=== PATIENT | male | born 1950 | race Caucasian/White ===

== ENCOUNTER 2020-09-01 06:15 | Outpatient (REF) | payer MEDICARE, SELFPAY ==
[2020-09-01 07:18] LABS: MANUAL DIFF FLAG NO
[2020-09-01 07:22] LABS: Basophils Percent Auto 0.8 % (0-2); Eosinophils Absolute Auto 0.1 X10*3/uL (0.0-0.4); Eosinophils Percent Auto 2.1 % (0-4); Hematocrit 47.2 % (42-52); Hemoglobin 15.4 g/dl (14.0-18.0); Imm Gran Abs Auto 0.02 X10*3/uL (0.00-0.03); Imm Gran Pct Auto 0.4 % (0.0-0.4); Lymphocytes Absolute Auto 1.9 X10*3/uL (1.2-4.9); Lymphocytes Percent Auto 37.4 % (20-40); Mean Corpuscular HGB Conc 32.6 g/dl (31.0-36.0); Mean Corpuscular Hemoglobin 31.8 pg (27.0-33.0); Mean Corpuscular Volume 97.5 fL (80-98); Mean Platelet Volume 11.3 fL (9.4-12.4); Monocytes Absolute Auto 0.6 X10*3/uL (0.1-1.2); Monocytes Percent Auto 11.9 % (2-11); Neutrophils Absolute Auto 2.4 X10*3/uL (2.0-8.3); Neutrophils Percent Auto 47.4 % (45-73); Platelet Count 155 X10*3/uL (160-400); Red Blood Count 4.84 X10*6/uL (4.60-5.80); Red Cell Distribution Width 12.6 % (11.0-16.0); White Blood Count 5.1 X10*3/uL (4.8-10.8)
[2020-09-01 07:58] LABS: Estimated Average Glucose 120 mg/dL; Hemoglobin A1c % 5.8 %
[2020-09-01 08:19] LABS: Alanine Aminotransferase 44 U/L (0-40); Albumin Level 4.3 g/dL (3.5-5.0); Alkaline Phosphatase 72 U/L (39-117); Anion Gap 12 (12-20); Aspartate Amino Transferase 36 U/L (5-37); Bilirubin Total 0.8 mg/dL (0.0-1.0); Blood Urea Nitrogen 19 mg/dL (9-16); Calcium 9.3 mg/dL (8.4-10.2); Carbon Dioxide 29 mmol/L (22-29); Chloride 106 mmol/L (96-108); Cholesterol 154 mg/dL; Estimated Glomerular Filt Rate > 60; Glucose Fasting 96 mg/dL (60-99); HDL Cholesterol 56 mg/dL; LDL Cholesterol Calculated 67 mg/dl; Potassium 4.4 mmol/l (3.3-5.1); Sodium 143 mmol/L (135-145); Total Protein 6.9 g/dL (6.5-8.0); Triglycerides 156 mg/dL
[2020-09-01 09:42] LABS: Folate 9.5 ng/mL (> or = 4.0); Vitamin B12 317 pg/mL (200-900)
== END 2020-09-01 06:16 | disposition home or self-care (01) ==
LOC: HO.LAB 06:15
PROVIDERS: PCP Internal Medicine; Visit Provider Internal Medicine
DX: E78.00 Pure hypercholesterolemia, unspecified (principal); N40.0 Benign prostatic hyperplasia without lower urinary tract symptoms; R73.01 Impaired fasting glucose; I25.10 Atherosclerotic heart disease of native coronary artery without angina pectoris; I10 Essential (primary) hypertension; I73.9 Peripheral vascular disease, unspecified; E66.9 Obesity, unspecified
CPT/HCPCS: 36415; 80053; 80061; 82607; 82746; 83036; 84436; 84443; 85025

== ENCOUNTER 2021-02-23 06:02 | Outpatient (REF) | payer MEDICARE, SELFPAY ==
[2021-02-23 08:08] LABS: MANUAL DIFF FLAG NO
[2021-02-23 08:25] LABS: Basophils Percent Auto 0.6 % (0-2); Eosinophils Absolute Auto 0.1 X10*3/uL (0.0-0.4); Hematocrit 44.3 % (42-52); Hemoglobin 14.7 g/dl (14.0-18.0); Imm Gran Abs Auto 0.01 X10*3/uL (0.00-0.03); Imm Gran Pct Auto 0.2 % (0.0-0.4); Lymphocytes Absolute Auto 1.9 X10*3/uL (1.2-4.9); Lymphocytes Percent Auto 41.1 % (20-40); Mean Corpuscular HGB Conc 33.2 g/dl (31.0-36.0); Mean Corpuscular Hemoglobin 32.8 pg (27.0-33.0); Mean Corpuscular Volume 98.9 fL (80-98); Mean Platelet Volume 11.1 fL (9.4-12.4); Monocytes Absolute Auto 0.5 X10*3/uL (0.1-1.2); Monocytes Percent Auto 10.9 % (2-11); Neutrophils Absolute Auto 2.1 X10*3/uL (2.0-8.3); Neutrophils Percent Auto 44.2 % (45-73); Platelet Count 166 X10*3/uL (160-400); Red Blood Count 4.48 X10*6/uL (4.60-5.80); Red Cell Distribution Width 13.4 % (11.0-16.0); White Blood Count 4.7 X10*3/uL (4.8-10.8)
[2021-02-23 08:33] LABS: Alanine Aminotransferase 28 U/L (0-40); Albumin Level 4.3 g/dL (3.5-5.0); Alkaline Phosphatase 71 U/L (39-117); Anion Gap 11 (12-20); Aspartate Amino Transferase 27 U/L (5-37); Bilirubin Total 0.8 mg/dL (0.0-1.0); Blood Urea Nitrogen 18 mg/dL (9-16); Calcium 9.5 mg/dL (8.4-10.2); Carbon Dioxide 28 mmol/L (22-29); Chloride 108 mmol/L (96-108); Cholesterol 155 mg/dL; Estimated Glomerular Filt Rate > 60; Glucose Random 103 mg/dL (60-115); HDL Cholesterol 55 mg/dL; LDL Cholesterol Calculated 73 mg/dl; Potassium 4.3 mmol/L (3.3-5.1); Sodium 143 mmol/L (135-145); Total Protein 6.9 g/dL (6.5-8.0); Triglycerides 138 mg/dL
[2021-02-23 08:36] LABS: B Type Natriuretic Peptide 136 pg/mL (<100)
[2021-02-23 08:57] LABS: Free T4 (Free Thyroxine) 0.83 ng/dL (0.71-1.85); Thyroid Stimulating Hormone 2.28 uIU/mL (0.32-4.0)
[2021-02-23 09:18] LABS: Folate 11.5 ng/mL (> or = 4.0); Vitamin B12 471 pg/mL (200-900)
[2021-02-23 10:08] LABS: Estimated Average Glucose 117 mg/dL; Hemoglobin A1c % 5.7 %
== END 2021-02-23 06:03 | disposition home or self-care (01) ==
LOC: HO.LAB 06:02
PROVIDERS: PCP Internal Medicine; Visit Provider Internal Medicine
DX: I25.10 Atherosclerotic heart disease of native coronary artery without angina pectoris (principal); E78.00 Pure hypercholesterolemia, unspecified; I10 Essential (primary) hypertension; R73.01 Impaired fasting glucose
CPT/HCPCS: 36415; 80053; 80061; 82607; 82746; 83036; 83880; 84439; 84443; 85025

== ENCOUNTER 2021-09-29 08:10 | Day surgery (SDC) | payer MEDICARE, SELFPAY ==
[2021-09-23 11:30] VITALS: BMI 30.9
--- NOTE | 2021-09-28 13:06 | P.CONAN_ITS ---
Documented by User: Eleonora Erickson NP 09/28/21 13:12 HPI - Anesthesia Eval Consult details Narrative: 71yo M for Colonoscopy Stable at 08/2021 cardiac visit Plavix/ASA for PVD and CAD PMFSH Active Problems Active Problems: All Active Problems (Updated 09/02/21 @ 15:07 by Kacy Fonseca MD) Tubular adenoma of colon (Acute) Hypersomnia (Acute) COVID-19 virus infection (Acute) Acute medial meniscus tear of left knee (Acute) Carotid stenosis (Acute) Hypercholesterolemia (Acute) BPH (benign prostatic hyperplasia) (Acute) Peripheral arterial disease (Acute) Impaired fasting glucose (Acute) Obesity (BMI 30-39.9) (Acute) Hypertension (Acute) Coronary artery disease (Acute) Past Medical History Medical History Blind right eye BPH (benign prostatic hyperplasia) Carpal tunnel syndrome Coronary artery disease Dilatation of aorta Erectile dysfunction History of renal calculi Hypercholesterolemia Hypertension Impaired fasting glucose Obesity (BMI 30-39.9) Osteoarthritis of left knee Peripheral arterial disease Peripheral vascular disease Pulmonary nodule Vitamin D deficiency Vocal cord polyp Family History Family History Father CVD (cardiovascular disease) Stroke Brain aneurysm Mother CVD (cardiovascular disease) Hypertension Sister Leukemia Brother Lung cancer Surgical History Surgical History Coronary artery disease involving coronary bypass graft History of appendectomy History of arthroscopy of left knee History of arthroscopy of right knee History of carpal tunnel release History of endarterectomy History of placement of stent in LAD coronary artery History of surgery History of vocal cord polypectomy Hx of total hip arthroplasty S/P right knee arthroscopy Status post endovenous radiofrequency ablation of saphenous vein Social History Social History Housing: House Patient Tobacco Use Status: Former Tobacco user Quit Date: Tobacco use type: Cigarette e-Cigarette/Vaping Use: Never Used Second Hand Smoke Exposure: No Use of substances other than those prescribed or required for medical reasons: No Are you DNR?: No Advance Directives: No Advance Directives Information Provided: Yes Advance Directives on File: No service: No 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) Meds Allergies Allergy/AdvReac Type Severity Reaction Status Date / Time No Known Allergies Allergy Verified 09/23/21 11:30 [No Known Allergies*] Home Medications Medication Instructions Recorded Confirmed Last Taken Type lactobacillus combination no.8 3 3,000 mmu cells PO DAILY 09/04/20 09/23/21 Unknown History billion cell capsule (Adult Probiotic) cholecalciferol (vitamin D3) 25 50 mcg PO DAILY 03/02/21 09/23/21 Unknown History mcg (1,000 unit) capsule Exam Exam Date and Time: September 28, 2021 1306 Height,Weight and Vital Signs: Height 6 ft 1 in Weight 106.594 kg Pertinent Lab Results Pertinent Lab Results: Laboratory Tests 02/23/21 02/23/21 06:10 06:10 WBC 4.7 L Hgb 14.7 Hct 44.3 Plt Count 166 Sodium 143 Potassium 4.3 Chloride 108 Carbon Dioxide 28 BUN 18 H Creatinine 0.87 Narrative Narrative: ECHO 2015 LV systolic function is low normal EF 50-55%, Abnormal septal motion Grade 1 DD with impaired relax Aortic sclerosis without stenosis No pulmo htn No change from prior Assessment and Plan Assessment Anesthesia Assessment: Chart Reviewed Documented by User: Deepti Vela MD 09/29/21 09:08 [facility] Past Medical History Medical History Blind right eye BPH (benign prostatic hyperplasia) Carpal tunnel syndrome Coronary artery disease Dilatation of aorta Erectile dysfunction History of renal calculi Hypercholesterolemia Hypertension Impaired fasting glucose Obesity (BMI 30-39.9) Osteoarthritis of left knee Peripheral arterial disease Peripheral vascular disease Pulmonary nodule Vitamin D deficiency Vocal cord polyp Family History Family History Father CVD (cardiovascular disease) Stroke Brain aneurysm Mother CVD (cardiovascular disease) Hypertension Sister Leukemia Brother Lung cancer Surgical History Surgical History Coronary artery disease involving coronary bypass graft History of appendectomy History of arthroscopy of left knee History of arthroscopy of right knee History of carpal tunnel release History of endarterectomy History of placement of stent in LAD coronary artery History of surgery History of vocal cord polypectomy Hx of total hip arthroplasty S/P right knee arthroscopy Status post endovenous radiofrequency ablation of saphenous vein History of Problems with Anesthesia: No Social History Social History Housing: House Patient Tobacco Use Status: Former Tobacco user Quit Date: Tobacco use type: Cigarette e-Cigarette/Vaping Use: Never Used Second Hand Smoke Exposure: No Use of substances other than those prescribed or required for medical reasons: No Are you DNR?: No Advance Directives: No Advance Directives Information Provided: Yes Advance Directives on File: No service: No 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) Narrative Narrative: q Meds Allergies Allergy/AdvReac Type Severity Reaction Status Date / Time No Known Allergies Allergy Verified 09/23/21 11:30 [No Known Allergies*] Home Medications Medication Instructions Recorded Confirmed Last Taken Type lactobacillus combination no.8 3 3,000 mmu cells PO DAILY 09/04/20 09/23/21 Unknown History billion cell capsule (Adult Probiotic) cholecalciferol (vitamin D3) 25 50 mcg PO DAILY 03/02/21 09/23/21 Unknown History mcg (1,000 unit) capsule Exam Airway Mallampati Class: II TM Dist: >3cm Neck ROM: Full Denture: Upper Partial: Lower Loose/Missing/Broken Teeth: Yes, Upper and Lower Heart: RRR Lungs: CTA Assessment and Plan Assessment Anesthesia Assessment: Anesthesia Plan Discussed Final Anesthetic Review History of Problems with Anesthesia: No NPO: Yes ASA Class: III Final Preanesthetic Review: Meds/Allgs Chart Reviewed, Consent Obtained/Reviewed and Anes Risks/Benef Reviewed Patient Risk: Intermediate Procedure Risk: Low Anesthetic Plan Anesthetic Plan: MAC: Disposition: Standard PACU
[2021-09-29 08:28] VITALS: BP 144/84; PULSE 78; RESP 18; TEMP 36.8; O2SAT 98
[2021-09-29] MEDS: Lactated Ringers 1,000 ML 50 ML IVCONT (08:49)
--- NOTE | 2021-09-29 09:27 | MHC.SHP ---
Pre-Procedural Eval Section A Date of Service: 09/29/21 The patient is an INPATIENT: No Changes since office visit: No Cold of Flu in the past 2 weeks, No New Medical Problems, No Changes in Medication and No Patient answered all questions The History & Physical has been completed within 30 days and I have reviewed it.: Yes Section B Chief Complaint: Screening Allergies: Allergies Allergy/AdvReac Type Severity Reaction Status Date / Time No Known Allergies Allergy Verified 09/23/21 11:30 [No Known Allergies*] Plan I have reviewed the history and physical and performed a pertinent physical examination on my patient. No changes have occurred unless specified.
[2021-09-29 10:00] VITALS: BP 102/63; PULSE 68; RESP 16; TEMP 36.1; O2SAT 98
--- NOTE | 2021-09-29 10:02 | PM.OP ---
Brief Operative Note Date of Service: 09/29/21 Pre-op diagnosis: SCREENING Post-op diagnosis: same Procedure: COLONOCOPY Surgeon: Timmy Lara Anesthesia: MAC Was an Student Support Advisor used for this Procedure?: No Estimated blood loss (mL): 2 Pathology: other (POLYPS X 3) Condition: stable Disposition: PACU
[2021-09-29 10:15] VITALS: BP 143/84; PULSE 67; RESP 18; O2SAT 98
[2021-09-29 10:30] VITALS: BP 149/88; PULSE 56; RESP 19; TEMP 36.8; O2SAT 99
--- NOTE | 2021-09-29 11:17 | OP_ITS ---
SURGEON: Timmy Lara MD INDICATIONS: Colon cancer screening and prior history of adenomatous colon polyps. PREOPERATIVE DIAGNOSIS: POSTOPERATIVE DIAGNOSIS: PROCEDURE PERFORMED: Colonoscopy to the terminal ileum with snare polypectomy and biopsy. ESTIMATED BLOOD LOSS: COMPLICATIONS: ANESTHESIA: ASSISTANTS: SPECIMENS: MEDICATIONS: Monitored anesthesia care. DESCRIPTION OF PROCEDURE: History and physical performed. The risks and benefits of the procedure were explained to the patient. Informed consent was obtained. The patient was placed in left lateral decubitus position. A digital rectal exam was performed and was found to be normal. The Olympus pediatric video colonoscope was introduced into the rectum and advanced to the cecum without difficulty. The cecum was identified by transillumination, palpation, and identification of ileocecal valve. Examination was performed and the scope was removed. He tolerated the procedure well and was taken to recovery area in stable condition. FINDINGS: The terminal ileum was examined and appeared normal. The visualized colonic mucosa was within normal limits without evidence of masses or ulcers. Three polyps were identified and removed. The first was located at 80 cm and was snared. The second was located at 75 cm and was removed with biopsy forceps. The third was located at 60 cm and was removed with a snare. All polyps were less than 10 mm. There was diverticulosis of the sigmoid with scattered diverticula throughout the remainder of the colon. The quality of the prep was good. Retroflexed examination showed some small to moderate internal hemorrhoids. IMPRESSION: Colon polyps. RECOMMENDATION: Follow up the biopsy results. MD MARCY Lambert/SASKIA / [id number]
== END 2021-09-29 10:58 | disposition home or self-care (01) ==
PROVIDERS: PCP Internal Medicine; Visit Provider Internal Medicine Gastroenterology
PROC: 0DJD8ZZ Inspection of Lower Intestinal Tract, Via Natural or Artificial Opening Endoscopic (ICD-10-PCS; CPT 45378; principal; 2021-09-29 09:30)
DX: Z12.11 Encounter for screening for malignant neoplasm of colon (principal); Z86.010 Personal history of colon polyps; D12.4 Benign neoplasm of descending colon; K57.30 Diverticulosis of large intestine without perforation or abscess without bleeding; K64.8 Other hemorrhoids; H54.40 Blindness, one eye, unspecified eye; I10 Essential (primary) hypertension; E78.00 Pure hypercholesterolemia, unspecified; I25.10 Atherosclerotic heart disease of native coronary artery without angina pectoris; Z98.61 Coronary angioplasty status; Z95.1 Presence of aortocoronary bypass graft; I73.9 Peripheral vascular disease, unspecified; Z95.820 Peripheral vascular angioplasty status with implants and grafts; Z79.02 Long term (current) use of antithrombotics/antiplatelets; Z79.899 Other long term (current) drug therapy
CPT/HCPCS: 45385; 45380; 88305

== ENCOUNTER 2021-10-28 05:49 | Outpatient (REF) | payer MEDICARE, SELFPAY ==
[2021-10-28 06:08] LABS: MANUAL DIFF FLAG NO
[2021-10-28 07:56] LABS: Basophils Absolute Auto 0.1 X10*3/uL (0.0-0.2); Basophils Percent Auto 0.8 % (0-2); Eosinophils Absolute Auto 0.1 X10*3/uL (0.0-0.4); Eosinophils Percent Auto 2.1 % (0-4); Hematocrit 46.6 % (42.0-52.0); Hemoglobin 15.3 g/dl (14.0-18.0); Imm Gran Abs Auto 0.03 X10*3/uL (0.00-0.03); Imm Gran Pct Auto 0.5 % (0.0-0.4); Lymphocytes Absolute Auto 2.7 X10*3/uL (1.2-4.9); Lymphocytes Percent Auto 43.9 % (20-40); Mean Corpuscular HGB Conc 32.8 g/dl (31.0-36.0); Mean Corpuscular Hemoglobin 32.4 pg (27.0-33.0); Mean Corpuscular Volume 98.7 fL (80.0-98.0); Mean Platelet Volume 11.4 fL (9.4-12.4); Monocytes Absolute Auto 0.7 X10*3/uL (0.1-1.2); Monocytes Percent Auto 10.6 % (2-11); Neutrophils Absolute Auto 2.6 x10*3/uL (2.0-8.3); Neutrophils Percent Auto 42.1 % (45-73); Platelet Count 169 X10*3/uL (160-400); Red Blood Count 4.72 X10*6/uL (4.60-5.80); Red Cell Distribution Width 12.4 % (11.0-16.0); White Blood Count 6.1 X10*3/uL (4.8-10.8)
[2021-10-28 08:04] LABS: Estimated Average Glucose 120 mg/dL; Hemoglobin A1c % 5.8 %
[2021-10-28 08:16] LABS: Alanine Aminotransferase 31 U/L (0-40); Albumin Level 4.4 g/dL (3.5-5.0); Alkaline Phosphatase 79 U/L (39-117); Anion Gap 11 (12-20); Aspartate Amino Transferase 22 U/L (5-37); Bilirubin Total 0.6 mg/dL (0.0-1.0); Blood Urea Nitrogen 13 mg/dL (9-16); Calcium 10.1 mg/dL (8.4-10.2); Carbon Dioxide 29 mmol/L (22-29); Chloride 108 mmol/L (96-108); Cholesterol 155 mg/dL; Estimated Glomerular Filt Rate > 60; Glucose Random 113 mg/dL (60-115); HDL Cholesterol 54 mg/dL; LDL Cholesterol Calculated 78 mg/dl; Potassium 4.4 mmol/L (3.3-5.1); Sodium 144 mmol/L (135-145); Total Protein 7.1 g/dL (6.5-8.0); Triglycerides 119 mg/dL
[2021-10-28 08:37] LABS: Free T4 (Free Thyroxine) 0.93 ng/dL (0.71-1.85); Thyroid Stimulating Hormone 3.11 uIU/mL (0.32-4.0)
[2021-10-28 08:47] LABS: Folate 15.2 ng/mL (> or = 4.0); Vitamin B12 489 pg/mL (200-900)
== END 2021-10-28 05:50 | disposition home or self-care (01) ==
LOC: HO.LAB 05:49
PROVIDERS: PCP Internal Medicine; Visit Provider Internal Medicine
DX: E78.00 Pure hypercholesterolemia, unspecified (principal)
CPT/HCPCS: 36415; 80053; 80061; 82607; 82746; 83036; 84439; 84443; 85025

== ENCOUNTER 2022-04-28 06:02 | Outpatient (REF) | payer MEDICARE, SELFPAY ==
[2022-04-28 07:41] LABS: Estimated Average Glucose 117 mg/dL; Hemoglobin A1C 150.5355 umol/L; Hemoglobin A1c % 5.7 %
[2022-04-28 07:52] LABS: Alanine Aminotransferase 38 U/L (0-40); Albumin Level 4.4 g/dL (3.5-5.0); Alkaline Phosphatase 76 U/L (39-117); Anion Gap 14 (12-20); Aspartate Amino Transferase 33 U/L (5-37); Bilirubin Total 0.7 mg/dL (0.0-1.0); Blood Urea Nitrogen 17 mg/dL (9-16); Calcium 9.3 mg/dL (8.4-10.2); Carbon Dioxide 25 mmol/L (22-29); Chloride 108 mmol/L (96-108); Estimated Glomerular Filt Rate > 60; Glucose Random 109 mg/dL (60-115); Potassium 4.6 mmol/L (3.3-5.1); Sodium 142 mmol/L (135-145)
== END 2022-04-28 06:03 | disposition home or self-care (01) ==
LOC: HO.LAB 06:02
PROVIDERS: PCP Internal Medicine; Visit Provider Internal Medicine
DX: R73.01 Impaired fasting glucose (principal)
CPT/HCPCS: 36415; 80053; 83036

== ENCOUNTER 2022-10-28 05:57 | Outpatient (REF) | payer MEDICARE, SELFPAY ==
[2022-10-28 06:02] LABS: MANUAL DIFF FLAG NO
[2022-10-28 07:41] LABS: Basophils Percent Auto 0.8 % (0-2); Eosinophils Absolute Auto 0.2 X10*3/uL (0.0-0.4); Hematocrit 45.6 % (42.0-52.0); Hemoglobin 15.4 g/dl (14.0-18.0); Imm Gran Abs Auto 0.02 X10*3/uL (0.00-0.03); Imm Gran Pct Auto 0.4 % (0.0-0.4); Lymphocytes Absolute Auto 2.4 X10*3/uL (1.2-4.9); Lymphocytes Percent Auto 47.9 % (20-40); Mean Corpuscular HGB Conc 33.8 g/dl (31.0-36.0); Mean Corpuscular Hemoglobin 32.8 pg (27.0-33.0); Mean Corpuscular Volume 97.2 fL (80.0-98.0); Mean Platelet Volume 11.1 fL (9.4-12.4); Monocytes Absolute Auto 0.7 X10*3/uL (0.1-1.2); Monocytes Percent Auto 13.9 % (2-11); Neutrophils Absolute Auto 1.7 x10*3/uL (2.0-8.3); Platelet Count 166 X10*3/uL (160-400); Red Blood Count 4.69 X10*6/uL (4.60-5.80); Red Cell Distribution Width 12.4 % (11.0-16.0); White Blood Count 5.1 X10*3/uL (4.8-10.8)
[2022-10-28 07:47] LABS: Estimated Average Glucose 108 mg/dL; Hemoglobin A1c % 5.4 %
[2022-10-28 08:15] LABS: Alanine Aminotransferase 32 U/L (0-40); Albumin Level 4.3 g/dL (3.5-5.0); Alkaline Phosphatase 67 U/L (39-117); Anion Gap 14 (12-20); Aspartate Amino Transferase 32 U/L (5-37); Bilirubin Total 0.9 mg/dL (0.0-1.0); Blood Urea Nitrogen 19 mg/dL (9-16); Calcium 9.8 mg/dL (8.4-10.2); Carbon Dioxide 25 mmol/L (22-29); Chloride 107 mmol/L (96-108); Cholesterol 133 mg/dL; Estimated Glomerular Filt Rate > 60; Glucose Random 101 mg/dL (60-115); HDL Cholesterol 57 mg/dL; LDL Cholesterol Calculated 56 mg/dl; Potassium 4.6 mmol/L (3.3-5.1); Sodium 141 mmol/L (135-145); Total Protein 6.8 g/dL (6.5-8.0); Triglycerides 103 mg/dL
[2022-10-28 08:40] LABS: Free T4 (Free Thyroxine) 0.87 ng/dL (0.71-1.85); Prostate Specific Antigen Scr 0.36 ng/mL (<0.05-4.0); Thyroid Stimulating Hormone 2.99 uIU/mL (0.32-4.0)
[2022-10-28 08:44] LABS: Folate 9.6 ng/mL (> or = 4.0); Vitamin B12 291 pg/mL (200-900)
== END 2022-10-28 05:58 | disposition home or self-care (01) ==
LOC: HO.LAB 05:57
PROVIDERS: PCP Internal Medicine; Visit Provider Internal Medicine
DX: Z12.5 Encounter for screening for malignant neoplasm of prostate (principal); R73.01 Impaired fasting glucose; I25.10 Atherosclerotic heart disease of native coronary artery without angina pectoris; N40.1 Benign prostatic hyperplasia with lower urinary tract symptoms; R35.0 Frequency of micturition; E78.00 Pure hypercholesterolemia, unspecified; I10 Essential (primary) hypertension
CPT/HCPCS: 36415; 80053; 80061; 82607; 82746; 83036; 84153; 84439; 84443; 84550; 85025

== ENCOUNTER 2023-04-27 06:03 | Outpatient (REF) | payer MEDICARE, SELFPAY | END 2023-04-27 06:04 | disposition home or self-care (01) | LOC: HO.LAB 06:03 | PROVIDERS: PCP Internal Medicine; Visit Provider Internal Medicine | DX: E78.00 Pure hypercholesterolemia, unspecified (principal); R73.01 Impaired fasting glucose | CPT/HCPCS: 36415; 80053; 80061; 82607; 82746; 83036; 84443; 85025 ==

== ENCOUNTER 2023-05-02 10:22 | Outpatient (AMB) | payer MEDICARE, SELFPAY ==
[2023-05-02 10:31] VITALS: BP 140/78; PULSE 67; O2SAT 98; BMI 31.0
--- NOTE | 2023-05-02 10:31 | MHC.PC.OV ---
Vital Signs 05/02/23 10:31 Height 6 ft 1 in Weight 235 lb BMI 31.0 BP 140/78 H Blood Pressure Location Lt brachial Position Sitting Pulse 67 Pulse Source Pulse Oximeter Pulse Oximetry (%) 98 Oxygen Delivery Method Room Air Intake Visit Reasons: PAD Allergies No Known Allergies [No Known Allergies*] Allergy (Verified 05/02/23 10:31) Medication List - Last Reconciled 05/02/23 by Kacy Fonseca MD cholecalciferol (vitamin D3) 50 mcg PO DAILY clopidogrel 75 mg PO DAILY ezetimibe (Zetia) 10 mg PO DAILY lactobacillus combination no.8 (Adult Probiotic) 3,000 mmu cells PO DAILY metoprolol succinate ER 25 mg PO DAILY rosuvastatin 40 mg PO DAILY Tobacco use date assessed: 11/02/22 Fall risk assessment: No Falls in past year Last assessed Fall Risk: 05/02/23 Dental Screening Dental Screen Date: 05/02/23 Did you have a dental visit in the last 12 months?: No Did you have a dental problem in the last 6 months where you did not have access to dental care?: No Was dental information given to patient?: Patient has dentist HPI PAD HPI Details 73-year-old obese male with multiple medical problems impaired glucose tolerance peripheral tear disease hypertension coronary artery disease BPH hypercholesterolemia vitamin B12 deficiency last seen in October 2022. Colonoscopy is up-to-date patient follows up with Cardiology history of left-sided femoral endarterectomy 2018 complicated by groin infection sepsis and septic prosthetic knee arthritis unsuccessful crossing of left SFA occlusion underwent proximal superficial femoral and proximal perform femoris endarterectomy with saphenous vein patch angioplasty and 2nd attempted crossing of the occlusion of the right distal SFA unsuccessful July [address] Lancaster has a history of coronary artery bypass graft. Last echocardiogram June 2022 preserved LV function mild LVH mild AR mildly dilated ascending aorta measuring 3.8 cm. Patient also follows up with vascular surgeon. noted BP elevated complains of pain on the left heel denies any fall or trauma but diagnosis of Achilles tendinitis. Discussed about taking Voltaren gel to be safe and to do some exercises. As for blood work discussed about the results having an elevated triglyceride [facility] Medical History (Updated 05/02/23 @ 11:14 by Kacy Fonseca MD) Blind right eye BPH (benign prostatic hyperplasia) Carpal tunnel syndrome Coronary artery disease Dilatation of aorta Erectile dysfunction History of renal calculi Hypercholesterolemia Hypertension Impaired fasting glucose Obesity (BMI 30-39.9) Osteoarthritis of left knee Peripheral arterial disease Peripheral vascular disease Pulmonary nodule Vitamin D deficiency Vocal cord polyp Surgical History Coronary artery disease involving coronary bypass graft History of appendectomy History of arthroscopy of left knee History of arthroscopy of right knee History of carpal tunnel release History of endarterectomy History of placement of stent in LAD coronary artery History of surgery History of vocal cord polypectomy Hx of total hip arthroplasty S/P right knee arthroscopy Status post endovenous radiofrequency ablation of saphenous vein Family History (Updated 05/02/23 @ 10:32 by Shelbie Clarke CMA) Father CVD (cardiovascular disease) Stroke Brain aneurysm Mother CVD (cardiovascular disease) Hypertension Sister Leukemia Brother Lung cancer Social History Housing: House Patient Tobacco Use Status: Former Tobacco user Quit Date: Tobacco use type: Cigarette e-Cigarette/Vaping Use: Never Used Second Hand Smoke Exposure: No service: No 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 1. Little interest or pleasure in doing things: not at all 2. Feeling down, depressed, or hopeless: not at all 3. Trouble falling or staying asleep, or sleeping too much: not at all 4. Feeling tired or having little energy: not at all 5. Poor appetite or overeating: not at all 6. Feeling bad about yourself - or that you are a failure or have let yourself or your family down: not at all 7. Trouble concentrating on things, such as reading the newspaper or watching television: not at all 8. Moving or speaking so slowly that other people could have noticed. Or the opposite - being so fidgety or restless that you have been moving around a lot more than usual: not at all 9. Thoughts that you would be better off or of hurting yourself in some way: not at all Total score: 0 Depression Screening Interpretation: Negative Source: Developed by Drs. Yonas L. BalwinderTherese rivas Kurt Kroenke and colleagues, with an educational humble from [employer]. Thrive Questionnaire Date Thrive assessed: 11/02/22 AUDIT C Alcohol Use Questionnaire (AUDIT-C) 1. How often do you have a drink containing alcohol?: 2-3 times a week 2. How many drinks containing alcohol do you have on a typical day when you are drinking?: 3 or 4 3. How often do you have six or more drinks on one occasion?: Never Total Score: 4 ROMAN-7 AMB Questionnaire ROMAN-7 Date ROMAN - 7 assessed: 11/02/22 Source: Developed by Drs. Yonas Britt, Freddy Pizano and colleagues, with an educational humble from [employer]. Physical exam (Primary Care) Vital Signs: Last Vital Signs Pulse 67 05/02/23 10:31 BP 140/78 H 05/02/23 10:31 Pulse Ox 98 05/02/23 10:31 Oxygen Delivery Method Room Air 05/02/23 10:31 BMI result Body Mass Index 31.0 Tobacco/Smoking Status: Tobacco use Status Tobacco use date assessed 11/02/22 05/02/23 10:34 Patient Tobacco Use Status Former Tobacco user 05/02/23 10:34 Tobacco use type Cigarette 05/02/23 10:34 e-Cigarette/Vaping Use Never Used 05/02/23 10:34 PHQ-9: PHQ-9 Score PHQ-9: Total score 0 05/02/23 10:34 Depression Screening Interpretation: Negative Thrive Assessment: Date of Thrive Assessment Date Thrive assessed 11/02/22 05/02/23 10:34 Const General: alert; No acute distress Eyes Conjunctivae: conjunctivae normal Resp Auscultation: clear to auscultation bilaterally Cardio Rate: regular rate Rhythm: regular rhythm GI Inspection: Yes normal to inspection Extrem General: Yes normal to inspection and No edema Assessment and Plan Assessment & Plan (1) Coronary artery disease: Comment: 1997 stent placement December 1999 Code(s): I25.10 - Atherosclerotic heart disease of teller coronary artery without angina pectoris Qualifiers: Coronary Disease-Associated Artery/Lesion type: teller artery [place] vs. transplanted heart: teller heart Associated angina: without angina Qualified Code(s): I25.10 - Atherosclerotic heart disease of teller coronary artery without angina pectoris Plan: Control the cholesterol, weight, blood pressure (2) Hypertension: Code(s): I10 - Essential (primary) hypertension Qualifiers: Hypertension type: essential hypertension Qualified Code(s): I10 - Essential (primary) hypertension Plan: Continue with blood pressure medication. Decrease salt intake and exercise patient is taking metoprolol 25 mg once a day (3) Impaired fasting glucose: Code(s): R73.01 - Impaired fasting glucose Plan: Decrease the amount of carbohydrate intake, pasta, bread, rice and potatoes are all sugar and that is aside from all the sweet stuff, remember that fruits are good but they are Sweet also. (4) Peripheral arterial disease: Comment: EDISON August 2021 right posterior tibial artery and left posterior tibial artery significant disease R Femoral endarterectomy Dr. Lancaster July 2022 Code(s): I73.9 - Peripheral vascular disease, unspecified Plan: Control the cholesterol, weight, blood pressure patient follows up with vascular surgeon (5) Hypercholesterolemia: Code(s): E78.00 - Pure hypercholesterolemia, unspecified Plan: Avoid fried foods, chicken skin, eggs, butter margarine, pastries and meat. Be it pork or beef they have a lot of cholesterol LDL goal of less than 70 and triglyceride of less than 150 noted elevation and triglyceride (6) BPH (benign prostatic hyperplasia): Code(s): N40.0 - Benign prostatic hyperplasia without lower urinary tract symptoms Qualifiers: Lower urinary tract symptom presence: symptoms present Lower urinary tract symptom detail: urinary frequency Qualified Code(s): N40.1 - Benign prostatic hyperplasia with lower urinary tract symptoms; R35.0 - Frequency of micturition Plan: Stable (7) Achilles tendinitis of left lower extremity: Code(s): M76.62 - Achilles tendinitis, left leg Plan: information given to patient may use voltaren gel. If pain persists to let me Orders: Orders Vitamin B12 and Folate 6 Months I25.10 - Atherosclerotic heart disease of teller coronary artery without angina pectoris Comprehensive Met. Panel 6 Months I25.10 - Atherosclerotic heart disease of teller coronary artery without angina pectoris Liver Panel 6 Months I25.10 - Atherosclerotic heart disease of teller coronary artery without angina pectoris, R79.89 - Other specified abnormal findings of blood chemistry Free T4 (Free Thyroxine) 6 Months I25.10 - Atherosclerotic heart disease of teller coronary artery without angina pectoris Thyroid Stimulating Hormone 6 Months I25.10 - Atherosclerotic heart disease of teller coronary artery without angina pectoris Complete Blood Count Auto Diff 6 Months I25.10 - Atherosclerotic heart disease of teller coronary artery without angina pectoris Coding Level of Care Code Est Pt Level 4 (38646) Diagnoses Coronary artery disease I25.10 Coronary Disease-Associated Artery/Lesion type: teller artery [place] vs. transplanted heart: teller heart Associated angina: without angina Hypertension I10 Hypertension type: essential hypertension Impaired fasting glucose R73.01 Peripheral arterial disease I73.9 Hypercholesterolemia E78.00 BPH (benign prostatic hyperplasia) N40.1; R35.0 Lower urinary tract symptom presence: symptoms present Lower urinary tract symptom detail: urinary frequency Achilles tendinitis of left lower extremity M76.62
== END 2023-05-02 11:30 | disposition home or self-care (01) ==
PROVIDERS: PCP Internal Medicine; Visit Provider Internal Medicine
DX: I25.10 Atherosclerotic heart disease of native coronary artery without angina pectoris (principal); I10 Essential (primary) hypertension; R73.01 Impaired fasting glucose; I73.9 Peripheral vascular disease, unspecified; E78.00 Pure hypercholesterolemia, unspecified; N40.1 Benign prostatic hyperplasia with lower urinary tract symptoms; R35.0 Frequency of micturition; M76.62 Achilles tendinitis, left leg
CPT/HCPCS: 99214

== ENCOUNTER 2023-05-07 08:29 | Emergency (ER) | payer MEDICARE, SELFPAY ==
--- NOTE | ~2023-05-07 | XR_ITS ---
EXAMINATION: XR ANKLE AND CALCANEUS, LEFT CLINICAL INFORMATION: Left lower extremity injury. COMPARISON: None available. TECHNIQUE: AP, lateral, and mortise views of the left ankle and 2 views of the left calcaneus. FINDINGS: The ankle joint and mortise are intact. There is no acute fracture or dislocation. Small corticated osseous densities are seen subjacent to the medial and lateral malleoli. The tarsal bones are normally aligned. Small to moderate plantar and retrocalcaneal spurs are noted. Moderate atherosclerosis. Mild soft tissue swelling. XR/XR ankle LT 2V IMPRESSION: 1. Mild soft tissue swelling without acute underlying osseous abnormality. 2. Degenerative calcaneal spurs. 3. Small corticated osseous densities subjacent to the medial and lateral malleoli are likely degenerative in nature.
--- NOTE | ~2023-05-07 | XR_ITS ---
EXAMINATION: XR ANKLE AND CALCANEUS, LEFT CLINICAL INFORMATION: Left lower extremity injury. COMPARISON: None available. TECHNIQUE: AP, lateral, and mortise views of the left ankle and 2 views of the left calcaneus. FINDINGS: The ankle joint and mortise are intact. There is no acute fracture or dislocation. Small corticated osseous densities are seen subjacent to the medial and lateral malleoli. The tarsal bones are normally aligned. Small to moderate plantar and retrocalcaneal spurs are noted. Moderate atherosclerosis. Mild soft tissue swelling. XR/XR calcaneus LT min 2V IMPRESSION: 1. Mild soft tissue swelling without acute underlying osseous abnormality. 2. Degenerative calcaneal spurs. 3. Small corticated osseous densities subjacent to the medial and lateral malleoli are likely degenerative in nature.
[2023-05-07 08:31] VITALS: BP 129/68; PULSE 72; RESP 18; TEMP 36.3; O2SAT 97; BMI 31.1
--- NOTE | 2023-05-07 10:02 | ED.LOWEXIN ---
HPI - Extremity Injury (Lower) General Chief Complaint: Extremity Injury, Lower Stated Complaint: L foot pain Time Seen by Provider: 05/07/23 09:04 Source: patient Mode of arrival: ambulatory Limitations: no limitations History of Present Illness HPI Narrative: Patient is a 73 year old male who presents emergency department for evaluation of left ankle pain. He has had persistent ankle pain for the past 6 weeks. Was seen by his primary care provider 5 days ago, was diagnosed with Achilles tendinitis. He had been using acetaminophen and Voltaren gel without any improvement in his pain. The pain was tolerable. Yesterday evening he stepped off of a curb and jammed his foot resulting in significant increase in pain. He is able to ambulate and weightbear but it is painful to do so. There is no obvious deformity. He denies fevers, chills, redness, warmth, numbness or tingling to the foot. Related Data Home Medications Medication Instructions Recorded Confirmed lactobacillus combination no.8 3 3,000 mmu cells PO DAILY 09/04/20 05/02/23 billion cell capsule (Adult Probiotic) cholecalciferol (vitamin D3) 25 50 mcg PO DAILY 03/02/21 05/02/23 mcg (1,000 unit) capsule ezetimibe 10 mg tablet (Zetia) 10 mg PO DAILY 11/02/22 05/02/23 Previous Rx's Medication Instructions Recorded clopidogrel 75 mg tablet 75 mg PO DAILY #90 tabs 10/04/22 rosuvastatin 40 mg tablet 40 mg PO DAILY #90 caps 11/23/22 metoprolol succinate 25 mg 25 mg PO DAILY #90 caps 04/15/23 tablet,extended release 24 hr tramadol 50 mg tablet 50 mg PO Q8H PRN pain #7 tabs 05/07/23 Allergies Allergy/AdvReac Type Severity Reaction Status Date / Time No Known Allergies Allergy Verified 05/07/23 08:31 [No Known Allergies*] Review of Systems Review of Systems: Constitutional: No fever, chills, weakness or fatigue. Skin: No rash or itching. Cardiovascular: No chest pain or pedal edema. Respiratory: No shortness of breath Gastrointestinal: No nausea, vomiting or diarrhea. No abdominal pain Musculoskeletal: As per HPI Yes all other systems are reviewed and are negative PMFSH Past Medical History Attestation statement: The following information was validated with the patient. Source: old records reviewed Medical History Blind right eye BPH (benign prostatic hyperplasia) Carpal tunnel syndrome Coronary artery disease Dilatation of aorta Erectile dysfunction History of renal calculi Hypercholesterolemia Hypertension Impaired fasting glucose Obesity (BMI 30-39.9) Osteoarthritis of left knee Peripheral arterial disease Peripheral vascular disease Pulmonary nodule Vitamin D deficiency Vocal cord polyp Surgical History Coronary artery disease involving coronary bypass graft History of appendectomy History of arthroscopy of left knee History of arthroscopy of right knee History of carpal tunnel release History of endarterectomy History of placement of stent in LAD coronary artery History of surgery History of vocal cord polypectomy Hx of total hip arthroplasty S/P right knee arthroscopy Status post endovenous radiofrequency ablation of saphenous vein Family History Family History (Updated 05/02/23 @ 10:32 by Shelbie Clarke CMA) Father CVD (cardiovascular disease) Stroke Brain aneurysm Mother CVD (cardiovascular disease) Hypertension Sister Leukemia Brother Lung cancer Social History Social History Housing: House Patient Tobacco Use Status: Former Tobacco user Quit Date: Tobacco use type: Cigarette e-Cigarette/Vaping Use: Never Used Second Hand Smoke Exposure: No Advance Directives: No Advance Directives Information Provided: Yes service: No 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 No acute distress.?Normal affect. Eyes: Pupils equal, round and reactive to light.? ENT: Pharynx normal.?? Neck: Normal inspection.? Neck supple.?? CVS: Heart sounds normal. Normal heart rate and rhythm.? Pulses normal.?? Respiratory: No respiratory distress.? Lung sounds clear to auscultation bilaterally?? Abdomen: Soft and non-tender. Normoactive bowel sounds. ?? Skin: Skin warm and dry.? Normal skin color.? ?? Extremities: No lower extremity edema.? No calf ttp. Lizama test is negative on the left. Tenderness upon palpation of the Achilles tendon with full AROM to the ankle. 2+ DP/ PT pulse bilaterally. Neuro: Moves all extremities spontaneously. Sensation intact bilaterally. No focal neuro deficits. Ambulates with normal steady gait. Medical Decision Making Medical Decision Making MDM Narrative: patient is a 73-year-old male presents to emergency department for evaluation of traumatic left ankle pain with recent diagnosis of Achilles tendinitis. He is overall well-appearing. Extremities neurovascularly intact distally. He is ambulatory with an antalgic gait. Full AROM is intact, Lizama test is negative, lower suspicion for Achilles tendon rupture at this time. no erythema or warmth, lower suspicion for bursitis. Discussed plan of care for rest, ice, acetaminophen/ tearing gel, in addition to tramadol for unrelieved pain. Outpatient follow-up with primary care provider/ Orthopedics. Reviewed worrisome signs and symptoms that would warrant re-evaluation in the emergency department. All questions answered. Stable for discharge. Differential Diagnosis Differential Diagnoses: The differential diagnosis associated with the presentation includes ( fracture, dislocation, Achilles tendinitis, Achilles tendon rupture, Calcaneal bursitis) External Record Review External record reviewed: Outpatient record ( PCP record 05/02/2023) Tests considered The following testing was considered but not selected: I considered ultrasound imaging for Achilles tendon rupture, however based on physical examination feel that this is less likely at this time. Imaging deferred. Prescription Management I considered prescription management with: Pain Medication Discharge Plan Discharge Clinical Impression: Achilles tendinitis of left lower extremity Patient Disposition: Home, Self-Care Instructions: Achilles Tendinitis (ED) Additional Instructions: As discussed your x-ray does not show any fracture or dislocation. There is however the presence of bone spurs. Based on your physical examination today, a rupture of your Achilles tendon is less likely. Please be sure to rest over the next few days, apply ice to the area for 10-15 minutes 3-4 times daily. Consider the use of acetaminophen and/or Voltaren gel for pain. I have sent a short prescription for tramadol to your pharmacy given recent injury. This medication may make you drowsy, should not drive, drink alcohol, or operate machinery while taking this medication Please contact your primary care provider / orthopedic provider for further follow-up. Return back to emergency department any new or worsening symptoms or concerns. Prescriptions: New tramadol 50 mg tablet 50 mg PO Q8H PRN (Reason: pain) Qty: 7 0RF No Action clopidogrel 75 mg tablet 75 mg PO DAILY Qty: 90 2RF rosuvastatin 40 mg tablet 40 mg PO DAILY Qty: 90 3RF metoprolol succinate 25 mg tablet extended release 24 hr 25 mg PO DAILY Qty: 90 2RF Adult Probiotic 3 billion cell capsule 3,000 mmu cells PO DAILY Rx Instructions: administer with a meal cholecalciferol (vitamin D3) 25 mcg (1,000 unit) capsule 50 mcg PO DAILY ezetimibe [Zetia] 10 mg tablet 10 mg PO DAILY Referrals: Jenniffer Parham PA-C [Physician Ax Survey Worker] - Po,Kacy Alcantara MD [Primary Care Provider] -
== END 2023-05-07 10:22 | disposition home or self-care (01) ==
PROVIDERS: Emergency Provider Student in an Organized Health Care Education/Training Program; PCP Internal Medicine
DX: M76.62 Achilles tendinitis, left leg (principal); E78.00 Pure hypercholesterolemia, unspecified; I10 Essential (primary) hypertension; Z87.891 Personal history of nicotine dependence
CPT/HCPCS: 73600; 73650; 99283

== ENCOUNTER 2023-10-04 15:43 | Outpatient (AMB) | payer MEDICARE, SELFPAY ==
[2023-10-04 15:44] VITALS: BP 140/80; PULSE 59; O2SAT 95; BMI 31.6
--- NOTE | 2023-10-04 15:44 | A.OFFPC_ITS ---
Vital Signs 10/04/23 15:44 Height 6 ft 1 in Weight 239 lb 6 oz BMI 31.6 BP 140/80 H Blood Pressure Location Lt brachial Position Sitting Pulse 59 Pulse Source Pulse Oximeter Pulse Oximetry (%) 95 Oxygen Delivery Method Room Air Intake Visit Reasons: left foot pain Environmental Services Worker Required: No Accompanied by: Self / Same As Patient Allergies No Known Allergies [No Known Allergies*] Allergy (Verified 10/04/23 16:12) Medication List - Last Reconciled 10/04/23 by Anthony Andujar MD cholecalciferol (vitamin D3) 50 mcg PO DAILY clopidogrel 75 mg PO DAILY ezetimibe (Zetia) 10 mg PO DAILY lactobacillus combination no.8 (Adult Probiotic) 3,000 mmu cells PO DAILY metoprolol succinate ER 25 mg PO DAILY rosuvastatin 40 mg PO DAILY tramadol 50 mg PO Q8H PRN 10 days Tobacco use date assessed: 10/04/23 Fall risk assessment: No Falls in past year Last assessed Fall Risk: 10/04/23 Dental Screening Dental Screen Date: 10/04/23 Did you have a dental visit in the last 12 months?: No Did you have a dental problem in the last 6 months where you did not have access to dental care?: No Was dental information given to patient?: No HPI left foot pain HPI Details Patient comes in today complaining of increased pain over his left heel area States that he has been dealing with this for a few months now ever since he hurt his foot/heel when he stepped off a curb and his foot slipped Has received a total of 4 injections already into his left heel by Dr. Gardner (orthopedics), with only temporary relief of his heel pain States that his heel pain has gotten worse again lately to a point where he is having trouble sleeping at night and is looking for something to help relieve his pain as Tylenol has not been helping Is also looking for further recommendations on what he should do next for his h eel pain He denies any headaches or dizziness Denies any chest pains, no shortness of breath No nausea / vomiting, no abdominal pain No change in bowel habits noted [facility] Medical History Blind right eye Peripheral vascular disease Hypercholesterolemia Erectile dysfunction BPH (benign prostatic hyperplasia) Peripheral arterial disease Dilatation of aorta Pulmonary nodule Osteoarthritis of left knee Vitamin D deficiency Impaired fasting glucose Obesity (BMI 30-39.9) History of renal calculi Hypertension Vocal cord polyp Coronary artery disease Carpal tunnel syndrome Surgical History S/P right knee arthroscopy History of endarterectomy Status post endovenous radiofrequency ablation of saphenous vein History of placement of stent in LAD coronary artery History of carpal tunnel release History of surgery History of vocal cord polypectomy History of arthroscopy of left knee Coronary artery disease involving coronary bypass graft Hx of total hip arthroplasty History of arthroscopy of right knee History of appendectomy Family History Father CVD (cardiovascular disease) Stroke Brain aneurysm Mother CVD (cardiovascular disease) Hypertension Sister Leukemia Brother Lung cancer Social History Housing: House Patient Tobacco Use Status: Former Tobacco user Quit Date: Tobacco use type: Cigarette e-Cigarette/Vaping Use: Never Used Second Hand Smoke Exposure: No service: No 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 1. Little interest or pleasure in doing things: not at all 2. Feeling down, depressed, or hopeless: not at all 3. Trouble falling or staying asleep, or sleeping too much: not at all 4. Feeling tired or having little energy: not at all 5. Poor appetite or overeating: not at all 6. Feeling bad about yourself - or that you are a failure or have let yourself or your family down: not at all 7. Trouble concentrating on things, such as reading the newspaper or watching television: not at all 8. Moving or speaking so slowly that other people could have noticed. Or the opposite - being so fidgety or restless that you have been moving around a lot more than usual: not at all 9. Thoughts that you would be better off or of hurting yourself in some way: not at all Total score: 0 Depression Screening Interpretation: Negative Depression Screening Done: Yes 10832 - PHQ-9 Billing: Yes Source: Developed by Drs. Yonas Britt, Therese Harris, Freddy Antonio and colleagues, with an educational humble from [employer]. Thrive Questionnaire Date Thrive assessed: 10/04/23 I am a: Patient What is your living situation today?: I have a steady place to live Within the past 12 months, did the food you bought not last and you didn't have the money to get more?: Never true Within the past 12 months, did you worry whether your food would run out before you got money to buy more?: Never true Do you have trouble paying for medicines?: No Do you have trouble getting transportation to medical appointments?: No Do you have trouble paying your heating and electricity bill?: No Do you have trouble taking care of your child, family member or friend?: No Do you have trouble with day-to-day activities such as bathing, preparing meals, shopping, managing finances, etc.?: No Are you currently unemployed and looking for a job?: No Are you interested in more education?: No Please select the resources that you would like help with: None Currently or been in a relationship where the following occur: no concerns reported AUDIT C Alcohol Use Questionnaire (AUDIT-C) 1. How often do you have a drink containing alcohol?: 2-3 times a week 2. How many drinks containing alcohol do you have on a typical day when you are drinking?: 3 or 4 3. How often do you have six or more drinks on one occasion?: Never Total Score: 4 Score Reviewed/Action Taken: Yes ROMAN-7 AMB Questionnaire ROMAN-7 Date ROMAN - 7 assessed: 10/04/23 Feeling nervous, anxious, or on edge: 0 = Not at all Not being able to stop or control worryin = Not at all Worrying too much about different things: 0 = Not at all Trouble relaxin = Not at all Being so restless that it is hard to sit still: 0 = Not at all Becoming easily annoyed or irritable: 0 = Not at all Feeling afraid as if something awful might happen: 0 = Not at all Total ROMAN-7 score (0-4 normal; 5-9 mild; 10-14 moderate; 15-21 severe): 0 Source: Developed by Drs. Yonas Britt, Therese Harris, Freddy Antonio and colleagues, with an educational humble from [employer]. Review of Systems Const Denies chills, Denies fatigue, Denies fever(s) and Denies headache(s) ENT Denies dysphagia, Denies dizziness, Denies headache(s), Denies neck pain, Denies odynophagia and Denies sore throat Card Denies chest pain, Denies palpitations and Denies dyspnea Resp Denies cough and Denies dyspnea GI Denies abdominal pain, Denies constipation, Denies dysphagia, Denies diarrhea, Denies nausea, Denies odynophagia and Denies vomiting Denies dysuria and Denies urinary frequency Musc Details: (+) increasing left heel pain Denies neck pain Neuro Denies dizziness and Denies headache(s) Endo Denies fatigue and Denies palpitations Physical exam (Primary Care) Vital Signs: Last Vital Signs Pulse 59 10/04/23 15:44 BP 140/80 H 10/04/23 15:44 Pulse Ox 95 10/04/23 15:44 Oxygen Delivery Method Room Air 10/04/23 15:44 BMI result Body Mass Index 31.6 Tobacco/Smoking Status: Tobacco use Status Tobacco use date assessed 10/04/23 10/04/23 15:49 Patient Tobacco Use Status Former Tobacco user 10/04/23 15:49 Tobacco use type Cigarette 10/04/23 15:49 e-Cigarette/Vaping Use Never Used 10/04/23 15:49 PHQ-9: PHQ-9 Score PHQ-9: Total score 0 10/04/23 16:14 Depression Screening Interpretation: Negative Thrive Assessment: Date of Thrive Assessment Date Thrive assessed 10/04/23 10/04/23 15:49 Currently or been in a relationship where the following occur: no concerns reported Const General: no acute distress and alert Neck Neck: Yes no lymphadenopathy and Yes supple Resp Auscultation: clear to auscultation bilaterally, no rales and no wheezes Cardio Rate: regular rate Rhythm: regular rhythm Heart sounds: no murmurs GI Palpation (GI): Soft to palpation and nontender Auscultation: normal bowel sounds Extrem General: Yes no clubbing, cyanosis or edema Left lower extremity: foot Details: tenderness Location: of the calcaneus Details: point tenderness (over the distal insertion site where the Achilles tendon inserts into the calcaneus) Assessment and Plan Assessment & Plan (1) Pain of left heel: Code(s): M79.672 - Pain in left foot Plan: Suspect Achilles tendinitis as the main etiology of his heel pain X-rays of the left foot / heel done a few months ago revealed (+) mild soft tissue swelling without acute underlying osseous abnormalities, with (+) degenerative calcaneal spurs and a small corticated osseous densities subjacent to the medial and lateral malleoli that are likely degenerative in nature Will send patient for US of the Achilles tendon for further evaluation Will start him in the meantime on Tramadol 50 mg PRN - advised that he should primarily just take this at bedtime PRN to help him get some sleep but can take it up to TID PRN only if needed He is advised to also continue following up with orthopedics (Dr. Gardner) as scheduled Plan Follow up with PCP as scheduled next month Orders: Orders US extremity nonvascular 10/04/23 M76.62 - Achilles tendinitis, left leg Medications: New tramadol 50 mg PO TID 30 tabs 0RF M79.672 - Pain in left foot Coding Level of Care Code Est Pt Level 3 (59728) Diagnoses Pain of left heel M79.672
== END 2023-10-04 16:25 | disposition home or self-care (01) ==
PROVIDERS: PCP Internal Medicine; Visit Provider Internal Medicine
DX: M79.672 Pain in left foot (principal)
CPT/HCPCS: 99213

== ENCOUNTER 2023-10-14 10:02 | Outpatient (REF) | payer MEDICARE, SELFPAY ==
--- NOTE | ~2023-10-14 | US_ITS ---
EXAMINATION: ULTRASOUND LEFT HEEL/DISTAL CALF CLINICAL INDICATIONS: Achilles tendinitis with increasing pain over left heel. COMPARISON: None available. TECHNIQUE: High-frequency linear ultrasound transducer was used to examine the area of clinical concern. FINDINGS: There is a cystic area in the region of the distal left Achilles insertion that contains calcifications. This measures 2.5 x 1.8 x 1.0 cm. There is some surrounding fluid. Findings are concerning for an Achilles tendon injury. US/US extremity nonvascular rodrigues IMPRESSION: Findings concerning for Achilles tendon injury. MRI is recommended for further evaluation.
== END 2023-10-14 10:03 | disposition home or self-care (01) ==
LOC: HO.HMGCX 10:02
PROVIDERS: PCP Internal Medicine; Visit Provider Internal Medicine
DX: M76.62 Achilles tendinitis, left leg (principal)
CPT/HCPCS: 76882

== ENCOUNTER 2023-10-21 05:55 | Outpatient (REF) | payer MEDICARE, SELFPAY ==
[2023-10-21 06:07] LABS: MANUAL DIFF FLAG NO
[2023-10-21 07:09] LABS: Basophils Percent Auto 0.4 % (0-2); Eosinophils Absolute Auto 0.1 X10*3/uL (0.0-0.4); Eosinophils Percent Auto 1.6 % (0-4); Hematocrit 44.6 % (42.0-52.0); Imm Gran Abs Auto 0.02 X10*3/uL (0.00-0.03); Imm Gran Pct Auto 0.3 % (0.0-0.4); Lymphocytes Absolute Auto 2.5 X10*3/uL (1.2-4.9); Lymphocytes Percent Auto 35.6 % (20-40); Mean Corpuscular HGB Conc 33.6 g/dl (31.0-36.0); Mean Platelet Volume 10.7 fL (9.4-12.4); Monocytes Absolute Auto 0.9 X10*3/uL (0.1-1.2); Monocytes Percent Auto 12.4 % (2-11); Neutrophils Absolute Auto 3.5 x10*3/uL (2.0-8.3); Neutrophils Percent Auto 49.7 % (45-73); Platelet Count 144 X10*3/uL (160-400); Red Blood Count 4.55 X10*6/uL (4.60-5.80); Red Cell Distribution Width 12.8 % (11.0-16.0); White Blood Count 6.9 X10*3/uL (4.8-10.8)
[2023-10-21 07:32] LABS: Alanine Aminotransferase 47 U/L (0-40); Albumin Level 4.1 g/dL (3.5-5.0); Alkaline Phosphatase 76 U/L (39-117); Anion Gap 13 (12-20); Aspartate Amino Transferase 43 U/L (5-37); Bilirubin Direct 0.4 mg/dL (0.0-0.5); Bilirubin Total 0.9 mg/dL (0.0-1.0); Blood Urea Nitrogen 15 mg/dL (9-16); Calcium 9.7 mg/dL (8.4-10.2); Carbon Dioxide 26 mmol/L (22-29); Chloride 107 mmol/L (96-108); Estimated Glomerular Filt Rate > 60; Glucose Random 111 mg/dL (60-115); Potassium 4.3 mmol/L (3.3-5.1); Sodium 142 mmol/L (135-145)
[2023-10-21 07:49] LABS: Free T4 (Free Thyroxine) 0.81 ng/dL (0.71-1.85); Thyroid Stimulating Hormone 3.07 uIU/mL (0.32-4.0)
[2023-10-21 08:05] LABS: Folate 10.1 ng/mL (> or = 4.0); Vitamin B12 428 pg/mL (200-900)
== END 2023-10-21 05:56 | disposition home or self-care (01) ==
LOC: HO.LAB 05:55
PROVIDERS: PCP Internal Medicine; Visit Provider Internal Medicine
DX: I25.10 Atherosclerotic heart disease of native coronary artery without angina pectoris (principal); R79.89 Other specified abnormal findings of blood chemistry
CPT/HCPCS: 36415; 80053; 82248; 82607; 82746; 84439; 84443; 85025

== ENCOUNTER 2023-11-02 08:21 | Outpatient (AMB) | payer MEDICARE, SELFPAY ==
[2023-11-02 08:24] VITALS: BP 128/62; PULSE 71; O2SAT 98; BMI 31.3
--- NOTE | 2023-11-02 08:24 | A.OFFPC_ITS ---
Vital Signs 11/02/23 08:24 Height 6 ft 1 in Weight 237 lb BMI 31.3 BP 128/62 Blood Pressure Location Lt brachial Position Sitting Pulse 71 Pulse Source Pulse Oximeter Pulse Oximetry (%) 98 Oxygen Delivery Method Room Air Intake Visit Reasons: Left ankle, calf pain, Coronary artery disease Allergies No Known Allergies [No Known Allergies*] Allergy (Verified 11/02/23 08:24) Tobacco use date assessed: 11/02/23 Fall risk assessment: No Falls in past year Last assessed Fall Risk: 11/02/23 Dental Screening Dental Screen Date: 11/02/23 Did you have a dental visit in the last 12 months?: Yes Did you have a dental problem in the last 6 months where you did not have access to dental care?: No Was dental information given to patient?: Patient has dentist HPI Coronary artery disease HPI Details 73-year-old obese male with a history of coronary artery disease peripheral arterial disease hypertension hyper cholesterolemia impaired glucose tolerance BPH last seen in April 2023 having Achilles tendonitis of the left lower extremity. Patient is here for follow-up last seen. Review of the notes had ultrasound of the left heel showing cystic area distal left Achilles insertion that contains calcifications concern about Achilles tendon injury. Patient also has followed up with Cardiology August 2023 CAD ordered for echocardiogram symptomatic on aspirin and Plavix metoprolol rosuvastatin Zetia patient was advised to start on Zetia. Review of the notes had some x-rays of the left ankle question of 3 mm displaced fracture of the tip of the fibula patient was in the ER April 2023 stepped off a curb and jammed his foot. complains of L leg cramps [facility] Medical History Blind right eye Peripheral vascular disease Hypercholesterolemia Erectile dysfunction BPH (benign prostatic hyperplasia) Peripheral arterial disease Dilatation of aorta Pulmonary nodule Osteoarthritis of left knee Vitamin D deficiency Impaired fasting glucose Obesity (BMI 30-39.9) History of renal calculi Hypertension Vocal cord polyp Coronary artery disease Carpal tunnel syndrome Surgical History S/P right knee arthroscopy History of endarterectomy Status post endovenous radiofrequency ablation of saphenous vein History of placement of stent in LAD coronary artery History of carpal tunnel release History of surgery History of vocal cord polypectomy History of arthroscopy of left knee Coronary artery disease involving coronary bypass graft Hx of total hip arthroplasty History of arthroscopy of right knee History of appendectomy Family History Father CVD (cardiovascular disease) Stroke Brain aneurysm Mother CVD (cardiovascular disease) Hypertension Sister Leukemia Brother Lung cancer Social History Housing: House Patient Tobacco Use Status: Former Tobacco user Quit Date: Tobacco use type: Cigarette e-Cigarette/Vaping Use: Never Used Second Hand Smoke Exposure: No service: No 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 1. Little interest or pleasure in doing things: not at all 2. Feeling down, depressed, or hopeless: not at all 3. Trouble falling or staying asleep, or sleeping too much: not at all 4. Feeling tired or having little energy: not at all 5. Poor appetite or overeating: not at all 6. Feeling bad about yourself - or that you are a failure or have let yourself or your family down: not at all 7. Trouble concentrating on things, such as reading the newspaper or watching television: not at all 8. Moving or speaking so slowly that other people could have noticed. Or the opposite - being so fidgety or restless that you have been moving around a lot more than usual: not at all 9. Thoughts that you would be better off or of hurting yourself in some way: not at all Total score: 0 Depression Screening Interpretation: Negative Depression Screening Done: Yes 05778 - PHQ-9 Billing: Yes Source: Developed by Drs. Yonas Britt, Therese Harris, Freddy Antonio and colleagues, with an educational humble from [employer]. Thrive Questionnaire Date Thrive assessed: 11/02/23 I am a: Patient What is your living situation today?: I have a steady place to live Within the past 12 months, did the food you bought not last and you didn't have the money to get more?: Never true Within the past 12 months, did you worry whether your food would run out before you got money to buy more?: Never true Do you have trouble paying for medicines?: No Do you have trouble getting transportation to medical appointments?: No Do you have trouble paying your heating and electricity bill?: No Do you have trouble taking care of your child, family member or friend?: No Do you have trouble with day-to-day activities such as bathing, preparing meals, shopping, managing finances, etc.?: No Are you currently unemployed and looking for a job?: No Are you interested in more education?: No Please select the resources that you would like help with: None Currently or been in a relationship where the following occur: no concerns reported AUDIT C Alcohol Use Questionnaire (AUDIT-C) 1. How often do you have a drink containing alcohol?: 2-3 times a week 2. How many drinks containing alcohol do you have on a typical day when you are drinking?: 3 or 4 3. How often do you have six or more drinks on one occasion?: Never Total Score: 4 Score Reviewed/Action Taken: Yes ROMAN-7 AMB Questionnaire ROMAN-7 Date ROMAN - 7 assessed: 11/02/23 Feeling nervous, anxious, or on edge: 0 = Not at all Not being able to stop or control worryin = Not at all Worrying too much about different things: 0 = Not at all Trouble relaxin = Not at all Being so restless that it is hard to sit still: 0 = Not at all Becoming easily annoyed or irritable: 0 = Not at all Feeling afraid as if something awful might happen: 0 = Not at all Total ROMAN-7 score (0-4 normal; 5-9 mild; 10-14 moderate; 15-21 severe): 0 Source: Developed by Drs. Yonas Britt, Therese Harris, Freddy Antonio and colleagues, with an educational humble from [employer]. Physical exam (Primary Care) Vital Signs: Last Vital Signs Pulse 71 11/02/23 08:24 BP 128/62 11/02/23 08:24 Pulse Ox 98 11/02/23 08:24 Oxygen Delivery Method Room Air 11/02/23 08:24 BMI result Body Mass Index 31.3 Tobacco/Smoking Status: Tobacco use Status Tobacco use date assessed 11/02/23 11/02/23 08:26 Patient Tobacco Use Status Former Tobacco user 11/02/23 08:26 Tobacco use type Cigarette 11/02/23 08:26 e-Cigarette/Vaping Use Never Used 11/02/23 08:26 PHQ-9: PHQ-9 Score PHQ-9: Total score 0 11/02/23 08:26 Depression Screening Interpretation: Negative Thrive Assessment: Date of Thrive Assessment Date Thrive assessed 11/02/23 11/02/23 08:26 Currently or been in a relationship where the following occur: no concerns reported Const General: alert; No acute distress Eyes Conjunctivae: conjunctivae normal Resp Auscultation: clear to auscultation bilaterally Cardio Rate: regular rate Rhythm: regular rhythm GI Inspection: Yes normal to inspection Extrem General: Yes normal to inspection and No edema Assessment and Plan Assessment & Plan (1) Pain of left heel: Comment: xray 05/14/2023 showing 3mm distal tip of fibular fracture Code(s): M79.672 - Pain in left foot Plan: Patient had an ultrasound done showing question of a cystic area and advised MRI. Had an x-ray earlier also do his question of fracture. (2) Coronary artery disease: Comment: 1997 stent placement December 1999 Code(s): I25.10 - Atherosclerotic heart disease of [place] coronary artery without angina pectoris Qualifiers: Coronary Disease-Associated Artery/Lesion type: [place] artery [place] vs. transplanted heart: [place] heart Associated angina: without angina Qualified Code(s): I25.10 - Atherosclerotic heart disease of [place] coronary artery without angina pectoris Plan: Control the cholesterol, weight, blood pressure, diabetes continue with aspirin and clopidogrel (3) Hypertension: Code(s): I10 - Essential (primary) hypertension Qualifiers: Hypertension type: essential hypertension Qualified Code(s): I10 - Essential (primary) hypertension Plan: Continue with blood pressure medication. Decrease salt intake and exercise on metoprolol 25 mg once a day (4) Obesity (BMI 30-39.9): Code(s): E66.9 - Obesity, unspecified Plan: Diet and exercise (5) Impaired fasting glucose: Code(s): R73.01 - Impaired fasting glucose Plan: Decrease the amount of carbohydrate intake, pasta, bread, rice and potatoes are all sugar and that is aside from all the sweet stuff, remember that fruits are good but they are Sweet also. (6) Peripheral arterial disease: Comment: EDISON August 2021 right posterior tibial artery and left posterior tibial artery significant disease R Femoral endarterectomy Dr. Lancaster July 2022 Code(s): I73.9 - Peripheral vascular disease, unspecified Plan: Patient follows up with vascular surgeon and on clopidogrel (7) Hypercholesterolemia: Code(s): E78.00 - Pure hypercholesterolemia, unspecified Plan: Avoid fried foods, chicken skin, eggs, butter margarine, pastries and meat. Be it pork or beef they have a lot of cholesterol LDL goal of less than 70 on rosuvastatin and was advised to start on Zetia Orders: Orders MR ankle LT wo con Today M79.672 - Pain in left foot Medications: New cyclobenzaprine 10 mg PO BEDTIME PRN 30 tabs 1RF muscle spasm M79.672 - Pain in left foot Coding Level of Care Code Est Pt Level 4 (81575) Diagnoses Pain of left heel M79.672 Coronary artery disease involving [place] coronary artery of [place] heart without angina pectoris I25.10 Coronary Disease-Associated Artery/Lesion type: [place] artery [place] vs. transplanted heart: [place] heart Associated angina: without angina Essential hypertension I10 Hypertension type: essential hypertension Obesity (BMI 30-39.9) E66.9 Impaired fasting glucose R73.01 Peripheral arterial disease I73.9 Hypercholesterolemia E78.00
== END 2023-11-02 09:38 | disposition home or self-care (01) ==
PROVIDERS: PCP Internal Medicine; Visit Provider Internal Medicine
DX: M79.672 Pain in left foot (principal); I73.9 Peripheral vascular disease, unspecified; I25.10 Atherosclerotic heart disease of native coronary artery without angina pectoris; I10 Essential (primary) hypertension; E66.9 Obesity, unspecified; R73.01 Impaired fasting glucose; E78.00 Pure hypercholesterolemia, unspecified
CPT/HCPCS: 99214

== ENCOUNTER 2023-12-07 07:15 | Outpatient (REF) | payer MEDICARE, SELFPAY ==
--- NOTE | ~2023-12-07 | MR_ITS ---
EXAMINATION: MR ANKLE WITHOUT CONTRAST, LEFT CLINICAL INFORMATION: Left foot/heel pain. COMPARISON: Radiographs dated 05/07/2023 and ultrasound dated 10/14/2023. TECHNIQUE: MRI of the ankle was performed using routine sequences on a high-field scanner. FINDINGS: ACHILLES TENDON: The Achilles tendon is avulsed at its calcaneal insertion with proximal retraction by 6 cm. A prominent enthesopathic spur is present at the calcaneal tuberosity footprint along with subtle osseous remodeling. Edema signal and a small amount of fluid are present along the tract between the torn tendon margin and the calcaneus. OTHER TENDONS: There is mild peroneus brevis and peroneus longus tendinosis. No additional tendon tears. No significant tenosynovitis. LIGAMENTS: There is mild thickening and indistinctness of the anterior talofibular ligament which may correspond to chronic changes of an old sprain. No tears. Calcaneofibular, posterior talofibular, and distal tibiofibular ligaments are intact. Deltoid and spring ligaments are normal. BONE AND ARTICULAR CARTILAGE: Small marginal osteophytes are present in the talocrural joint. Chondral fissuring and subtle subchondral edema are present at the tibial plafond posteriorly. Additional mild focal chondral thinning is present in the lateral margin of the talar dome. Mild osteoarthritis in the subtalar joint as well as the joints of the midfoot, characterized by small marginal osteophytes, foci of chondral thinning and subchondral edema. No fractures. JOINT FLUID AND SOFT TISSUES: No joint effusion. As noted above, there is fluid occupying the gas between the torn Achilles tendon margin and the calcaneus with surrounding soft tissue edema signal and swelling. There is generalized edema signal in the subcutaneous fat at the ankle and hindfoot. PLANTAR FASCIA: Central band of the plantar fascia is thickened with a large plantar calcaneal enthesopathic spur. SINUS TARSI AND TARSAL TUNNEL: Normal. MR/MR ankle LT wo con IMPRESSION: 1. Complete avulsion of the Achilles tendon at its calcaneal insertion with proximal retraction by 6 cm. 2. Mild peroneus brevis and peroneus longus tendinosis. 3. Mild osteoarthritis in the talocrural joint, subtalar joint, and midfoot.
== END 2023-12-07 07:16 | disposition home or self-care (01) ==
LOC: HO.MRI 07:15
PROVIDERS: PCP Internal Medicine; Visit Provider Internal Medicine
DX: M79.672 Pain in left foot (principal)
CPT/HCPCS: 73721

== ENCOUNTER 2023-12-13 09:45 | Outpatient (REF) | payer MEDICARE, SELFPAY ==
--- NOTE | ~2023-12-13 | XR_ITS ---
EXAMINATION: XR FOOT, LEFT CLINICAL INFORMATION: Pain in unspecified foot COMPARISON: None available. TECHNIQUE: AP, lateral, and oblique views of the left foot. FINDINGS: The bones are intact. No fracture. Alignment is anatomic. There is mild degenerative change of the first metatarsophalangeal joint. There is a moderate sized posterior plantar calcaneal spur and a large Achilles enthesophyte. Arterial vascular calcifications are seen. There is soft tissue calcifications posterior to the distal tibia. There is mild soft tissue fullness medial to the hindfoot. XR/XR foot LT min 3V IMPRESSION: 1. No acute bony abnormality. 2. Calcaneal spurs. 3. Mild degenerative change of the first metatarsophalangeal joint.
== END 2023-12-13 09:46 | disposition home or self-care (01) ==
LOC: HO.HOSX 09:45
PROVIDERS: Visit Provider Physician Assistant
DX: S86.012A Strain of left Achilles tendon, initial encounter (principal)
CPT/HCPCS: 73630; 99202

== ENCOUNTER 2023-12-13 10:42 | Outpatient (AMB) | payer MEDICARE, SELFPAY ==
--- NOTE | 2023-12-13 11:10 | A.OFFVIS_ITS ---
Intake Intake Visit Reasons: New Pt - Left Achilles Injury ~3months ago Intake Note: Quentin is a 73 year old male who presents today as a new patient for a evaluation of his left ankle pain. MRI done on 12/07/23. Patient reports that he went out with some friends and stepped wrong. He states that he had some injections in the past which gave him mild relief. Patient reports his pain is worse at night, he gets a throbbing pain in his heal. Allergies No Known Allergies [No Known Allergies*] Allergy (Verified 12/13/23 11:14) HPI New Pt - Left Achilles Injury ~3months ago HPI Details 73-year-old male who presents in the off ice today, as a new patient, for an evaluation of left lower extremity pain. The patient was seen by his PCP on 05/02/2023 where he had a complaint of left achilles tendinitis status post having left heel pain with no fall or trauma. It was recommended for him to use Voltaren Gel. The patient presented to the ED on 05/07/2023 with a complaint of left ankle pain for 6 weeks and reported he was seen by his primary care provider 5 days ago, was diagnosed with Achilles tendinitis. He had been using acetaminophen and Voltaren gel without any improvement in his pain. He reported on 05/06/2023 he stepped off a curb and jammed his foot. X-rays were obtained. He was prescribed Tramadol 50 mg PO Q8H PRN. He followed up with his PCP on 10/04/2023 where he reported increased pain. He stated he was no longer receiving relief with Tylenol. He was referred for an ultrasound of the Achilles tendon. He was prescribed Tramadol 50 mg PO TID PRN. The patient followed with with is PCP on 11/02/2023. MRI was ordered on 11/23/2023. Patient has had [address] Gardner in [facility] at [facility]. He was told it was pain medicine but is not sure what it was. He states it would give him relief for a few days and then the pain returns. He confirms he was getting injections for the pain. While in the office today the patient reports he went out with some friends and stepped wrong. He confirms some injections in the past with mild relief. He states the pain increases at night and he has throbbing in his heel. He confirms numbness in the left lower extremity but does states he is being followed by vascular. Patient has a history of a right total knee replacement in 03/[address] Gardner. 6 years later the knee became infected. He states he was told to deal with it by Dr. Gardner. Labs obtained by his PCP showed he had an infection. The total knee replacement was removed. He reports intermittent pain. COUNTS INCLUDE 234 BEDS AT THE [facility] Medical History Blind right eye Peripheral vascular disease Hypercholesterolemia Erectile dysfunction BPH (benign prostatic hyperplasia) Peripheral arterial disease Dilatation of aorta Pulmonary nodule Osteoarthritis of left knee Vitamin D deficiency Impaired fasting glucose Obesity (BMI 30-39.9) History of renal calculi Hypertension Vocal cord polyp Coronary artery disease Carpal tunnel syndrome Surgical History S/P right knee arthroscopy History of endarterectomy Status post endovenous radiofrequency ablation of saphenous vein History of placement of stent in LAD coronary artery History of carpal tunnel release History of surgery History of vocal cord polypectomy History of arthroscopy of left knee Coronary artery disease involving coronary bypass graft Hx of total hip arthroplasty History of arthroscopy of right knee History of appendectomy Family History Father CVD (cardiovascular disease) Stroke Brain aneurysm Mother CVD (cardiovascular disease) Hypertension Sister Leukemia Brother Lung cancer Social History Housing: House Patient Tobacco Use Status: Former Tobacco user Quit Date: Tobacco use type: Cigarette e-Cigarette/Vaping Use: Never Used Second Hand Smoke Exposure: No service: No 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 No ecchymosis, erythema, or edema. Positive Lizama?s. Full ankle ROM in all planes. Does have some skin changes associated with peripheral vascular disease. Assessment & Plan Assessment & Plan (1) Rupture of left Achilles tendon: Code(s): S86.012A - Strain of left Achilles tendon, initial encounter Qualifiers: Encounter type: initial encounter Qualified Code(s): S86.012A - Strain of left Achilles tendon, initial encounter Plan Mr. Lemus is a 73-year-old male who presents in the office today, as a new patient, for an evaluation of left lower extremity pain. The patient was seen by his PCP on 05/02/2023 where he had a complaint of left achilles tendinitis status post having left heel pain with no fall or trauma. It was recommended for him to use Voltaren Gel. The patient presented to the ED on 05/07/2023 with a complaint of left ankle pain for 6 weeks and reported he was seen by his primary care provider 5 days ago, was diagnosed with Achilles tendinitis. He had been using acetaminophen and Voltaren gel without any improvement in his pain. He reported on 05/06/2023 he stepped off a curb and jammed his foot. X-rays were obtained. He was prescribed Tramadol 50 mg PO Q8H PRN. He followed up with his PCP on 10/04/2023 where he reported increased pain. He stated he was no longer receiving relief with Tylenol. He was referred for an ultrasound of the Achilles tendon. He was prescribed Tramadol 50 mg PO TID PRN. The patient followed with with is PCP on 11/02/2023. MRI was ordered on 11/23/2023. Patient has had [address] Gardner in [facility] at [facility]. He was told it was pain medicine but is not sure what it was. He states it would give him relief for a few days and then the pain returns. He confirms he was getting injections for the pain. While in the office today the patient reports he went out with some friends and stepped wrong. He confirms some injections in the past with mild relief. He states the pain increases at night and he has throbbing in his heel. He confirms numbness in the left lower extremity but does states he is being followed by vascular. Patient has a history of a right total knee replacement in 03/[address] Gardner. 6 years later the knee became infected. He states he was told to deal with it by Dr. Gardner. Labs obtained by his PCP showed he had an infection. The total knee replacement was removed. He reports intermittent pain. We discussed the conservative treatment for the achilles tendon. A referral for physical therapy to work on strengthening the structures in the left lower extremity. Follow up will be in 6-8 weeks, or sooner if needed. An appointment will be made for the patient to be seen by Dr. Sadler for further evaluation of the right knee. The office will request the medical serafin rds from Dr. Gardner?s office. History of total knee replacement [address] Gardner. 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 Had 3 irrigation and debridement procedures done. I asked the patient if he had something called an antibiotic spacer that was put in and then had surgery a month later after the infection was eradicated, but he declined. He has occasional pain, persistent edema and ROM is 0-90 degrees. MRI of the left ankle, obtained on 12/07/2023, revealed: IMPRESSION: 1. Complete avulsion of the Achilles tendon at its calcaneal insertion with proximal retraction by 6 cm. 2. Mild peroneus brevis and peroneus longus tendinosis. 3. Mild osteoarthritis in the talocrural joint, subtalar joint, and midfoot. Ultrasound of the left heel/distal calf, obtained on 10/14/2023, revealed: Findings concerning for Achilles tendon injury. MRI is recommended for further evaluation. CR left ankle, obtained on 05/16/2023, revealed: There is a 3 mm diameter mildly displaced fracture of the tip of the fibula, of unknown chronicity. Clinical correlation for pain in this area is recommended. X-rays of the left ankle/calcaneus, obtained on 05/07/2023, revealed: 1. Mild soft tissue swelling without acute underlying osseous abnormality. 2. Degenerative calcaneal spurs. 3. Small corticated osseous densities subjacent to the medial and lateral malleoli are likely degenerative in nature. Orders: Orders XR foot LT min 3V Today M79.673 - Pain in unspecified foot Patient Instructions: Scribed by Zehra Canales medical cash poster, davy Parham PA-C on 12/13/2023 at 11:02 am, EST. Coding Level of Care Code New Pt Level 4 (61554) Diagnoses Rupture of left Achilles tendon, initial encounter S86.012A Encounter type: initial encounter
== END 2023-12-13 11:52 | disposition home or self-care (01) ==
PROVIDERS: PCP Internal Medicine; Visit Provider Physician Assistant
DX: S86.012A Strain of left Achilles tendon, initial encounter (principal); M19.072 Primary osteoarthritis, left ankle and foot
CPT/HCPCS: 99203

== ENCOUNTER 2024-01-27 05:59 | Outpatient (REF) | payer MEDICARE, SELFPAY ==
[2024-01-27 06:08] LABS: MANUAL DIFF FLAG NO
[2024-01-27 07:03] LABS: Basophils Percent Auto 0.7 % (0-2); Eosinophils Absolute Auto 0.1 X10*3/uL (0.0-0.4); Eosinophils Percent Auto 1.8 % (0-4); Hemoglobin 15.1 g/dl (14.0-18.0); Imm Gran Abs Auto 0.01 X10*3/uL (0.00-0.03); Imm Gran Pct Auto 0.2 % (0.0-0.4); Mean Corpuscular HGB Conc 34.3 g/dl (31.0-36.0); Mean Corpuscular Hemoglobin 33.5 pg (27.0-33.0); Mean Corpuscular Volume 97.6 fL (80.0-98.0); Mean Platelet Volume 11.1 fL (9.4-12.4); Monocytes Absolute Auto 0.7 X10*3/uL (0.1-1.2); Monocytes Percent Auto 12.9 % (2-11); Neutrophils Absolute Auto 1.7 x10*3/uL (2.0-8.3); Neutrophils Percent Auto 30.4 % (45-73); Platelet Count 156 X10*3/uL (160-400); Red Blood Count 4.51 X10*6/uL (4.60-5.80); Red Cell Distribution Width 12.4 % (11.0-16.0); White Blood Count 5.6 X10*3/uL (4.8-10.8)
[2024-01-27 07:12] LABS: Estimated Average Glucose 120 mg/dL; Hemoglobin A1C 150.8169 umol/L; Hemoglobin A1c % 5.8 % (<6.0)
[2024-01-27 07:21] LABS: Alanine Aminotransferase 38 U/L (0-40); Alkaline Phosphatase 75 U/L (39-117); Anion Gap 12 (12-20); Aspartate Amino Transferase 34 U/L (5-37); Bilirubin Total 0.8 mg/dL (0.0-1.0); Blood Urea Nitrogen 15 mg/dL (9-16); Calcium 9.6 mg/dL (8.4-10.2); Carbon Dioxide 28 mmol/L (22-29); Chloride 106 mmol/L (96-108); Estimated Glomerular Filt Rate > 60; Glucose Random 105 mg/dL (60-115); Potassium 4.6 mmol/L (3.3-5.1); Sodium 141 mmol/L (135-145)
== END 2024-01-27 06:00 | disposition home or self-care (01) ==
LOC: HO.LAB 05:59
PROVIDERS: PCP Internal Medicine; Visit Provider Internal Medicine
DX: R73.01 Impaired fasting glucose (principal)
CPT/HCPCS: 36415; 80053; 83036; 85025

== ENCOUNTER 2024-02-01 09:22 | Outpatient (AMB) | payer MEDICARE, SELFPAY ==
--- NOTE | 2024-02-01 09:29 | MHC.PC.OV ---
Vital Signs 02/01/24 09:30 Height 6 ft 1 in Weight 237 lb BMI 31.3 BP 134/80 Blood Pressure Location Lt brachial Position Sitting Pulse 77 Pulse Source Pulse Oximeter Pulse Oximetry (%) 98 Oxygen Delivery Method Room Air Intake Visit Reasons: fibular fracture l Allergies No Known Allergies [No Known Allergies*] Allergy (Verified 02/01/24 09:33) Tobacco use date assessed: 02/01/24 Fall risk assessment: No Falls in past year Last assessed Fall Risk: 02/01/24 Dental Screening Dental Screen Date: 02/01/24 Did you have a dental visit in the last 12 months?: Yes Did you have a dental problem in the last 6 months where you did not have access to dental care?: No Was dental information given to patient?: Patient has dentist HPI fibular fracture l HPI Details 73-year-old obese male with peripheral arterial disease coronary artery disease hypertension impaired glucose tolerance hypercholesterolemia last seen in October 2023. Patient complained of an left ankle pain no trauma patient states stepped off a curb and jammed his left foot has seen Orthopedics and has had injections patient against stepped wrong recently the pain with come back. MRI in November 2023 showing complete avulsion of the Achilles tendon at its calcaneal insertion with proximal retraction by 6 cm mild peroneus brevis and peroneus longus tendinosis mild osteoarthritis of the talocrural joint subtalar joint and midfoot patient was advised conservative treatment referral to physical therapy [facility] Medical History Blind right eye Peripheral vascular disease Hypercholesterolemia Erectile dysfunction BPH (benign prostatic hyperplasia) Peripheral arterial disease Dilatation of aorta Pulmonary nodule Osteoarthritis of left knee Vitamin D deficiency Impaired fasting glucose Obesity (BMI 30-39.9) History of renal calculi Hypertension Vocal cord polyp Coronary artery disease Carpal tunnel syndrome Surgical History S/P right knee arthroscopy History of endarterectomy Status post endovenous radiofrequency ablation of saphenous vein History of placement of stent in LAD coronary artery History of carpal tunnel release History of surgery History of vocal cord polypectomy History of arthroscopy of left knee Coronary artery disease involving coronary bypass graft Hx of total hip arthroplasty History of arthroscopy of right knee History of appendectomy Family History Father CVD (cardiovascular disease) Stroke Brain aneurysm Mother CVD (cardiovascular disease) Hypertension Sister Leukemia Brother Lung cancer Social History Housing: House Patient Tobacco Use Status: Former Tobacco user Quit Date: Tobacco use type: Cigarette e-Cigarette/Vaping Use: Never Used Second Hand Smoke Exposure: No service: No 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 1. Little interest or pleasure in doing things: not at all 2. Feeling down, depressed, or hopeless: not at all 3. Trouble falling or staying asleep, or sleeping too much: not at all 4. Feeling tired or having little energy: not at all 5. Poor appetite or overeating: not at all 6. Feeling bad about yourself - or that you are a failure or have let yourself or your family down: not at all 7. Trouble concentrating on things, such as reading the newspaper or watching television: not at all 8. Moving or speaking so slowly that other people could have noticed. Or the opposite - being so fidgety or restless that you have been moving around a lot more than usual: not at all 9. Thoughts that you would be better off or of hurting yourself in some way: not at all Total score: 0 Depression Screening Interpretation: Negative Depression Screening Done: Yes 72624 - PHQ-9 Billing: Yes Source: Developed by Drs. Yonas Britt, Therese Harris, Freddy Antonio and colleagues, with an educational humble from [employer]. Thrive Questionnaire Date Thrive assessed: 02/01/24 I am a: Patient What is your living situation today?: I have a steady place to live Within the past 12 months, did the food you bought not last and you didn't have the money to get more?: Never true Within the past 12 months, did you worry whether your food would run out before you got money to buy more?: Never true Do you have trouble paying for medicines?: No Do you have trouble getting transportation to medical appointments?: No Do you have trouble paying your heating and electricity bill?: No Do you have trouble taking care of your child, family member or friend?: No Do you have trouble with day-to-day activities such as bathing, preparing meals, shopping, managing finances, etc.?: No Are you currently unemployed and looking for a job?: No Are you interested in more education?: No Currently or been in a relationship where the following occur: no concerns reported THRIVE Score: 0 AUDIT C Alcohol Use Questionnaire (AUDIT-C) 1. How often do you have a drink containing alcohol?: 2-3 times a week 2. How many drinks containing alcohol do you have on a typical day when you are drinking?: 3 or 4 3. How often do you have six or more drinks on one occasion?: Never Total Score: 4 Score Reviewed/Action Taken: Yes ROMAN-7 AMB Questionnaire ROMAN-7 Date ROMAN - 7 assessed: 02/01/24 Feeling nervous, anxious, or on edge: 0 = Not at all Not being able to stop or control worryin = Not at all Worrying too much about different things: 0 = Not at all Trouble relaxin = Not at all Being so restless that it is hard to sit still: 0 = Not at all Becoming easily annoyed or irritable: 0 = Not at all Feeling afraid as if something awful might happen: 0 = Not at all Total ROMAN-7 score (0-4 normal; 5-9 mild; 10-14 moderate; 15-21 severe): 0 Source: Developed by Drs. Yonas Britt, Therese Harris, Freddy Antonio and colleagues, with an educational humble from [employer]. Physical exam (Primary Care) Vital Signs: Oxygen Delivery Method Room Air 02/01/24 09:30 Tobacco/Smoking Status: Tobacco use Status Tobacco use date assessed 11/02/23 11/02/23 08:26 Patient Tobacco Use Status Former Tobacco user 11/02/23 08:26 Tobacco use type Cigarette 11/02/23 08:26 e-Cigarette/Vaping Use Never Used 11/02/23 08:26 Depression Screening Interpretation: Negative Thrive Assessment: Date of Thrive Assessment Date Thrive assessed 11/02/23 11/02/23 08:26 Currently or been in a relationship where the following occur: no concerns reported Const General: alert; No acute distress Eyes Conjunctivae: conjunctivae normal Resp Auscultation: clear to auscultation bilaterally Cardio Rate: regular rate Rhythm: regular rhythm GI Inspection: Yes normal to inspection Extrem General: Yes normal to inspection and No edema Assessment and Plan Assessment & Plan (1) Rupture of left Achilles tendon: Code(s): S86.012A - Strain of left Achilles tendon, initial encounter Qualifiers: Encounter type: initial encounter Qualified Code(s): S86.012A - Strain of left Achilles tendon, initial encounter Plan: Patient has seen Orthopedics and has been advised physical therapy (2) Pain of left heel: Comment: xray 05/14/2023 showing 3mm distal tip of fibular fracture Code(s): M79.672 - Pain in left foot Plan: Patient has seen Orthopedics and advised physical therapy (3) Tubular adenoma of colon: Comment: Dr. Lara September 2021 Code(s): D12.6 - Benign neoplasm of colon, unspecified Plan: Reminded patient about colonoscopy this year (4) Coronary artery disease: Comment: 1997 stent placement December 1999 Code(s): I25.10 - Atherosclerotic heart disease of [place] coronary artery without angina pectoris Qualifiers: Associated angina: without angina Coronary Disease-Associated Artery/Lesion type: [place] artery [place] vs. transplanted heart: [place] heart Qualified Code(s): I25.10 - Atherosclerotic heart disease of [place] coronary artery without angina pectoris Plan: Control the cholesterol, weight, blood pressure, presently on clopidogrel (5) Peripheral arterial disease: Comment: EDISON August 2021 right posterior tibial artery and left posterior tibial artery significant disease R Femoral endarterectomy Dr. Lancaster July 2022 Code(s): I73.9 - Peripheral vascular disease, unspecified Plan: Presently on clopidogrel and followed up by vascular surgeon (6) Impaired fasting glucose: Code(s): R73.01 - Impaired fasting glucose Plan: Decrease the amount of carbohydrate intake, pasta, bread, rice and potatoes are all sugar and that is aside from all the sweet stuff, remember that fruits are good but they are Sweet also. (7) Obesity (BMI 30-39.9): Code(s): E66.9 - Obesity, unspecified Plan: Diet and exercise (8) Hypertension: Code(s): I10 - Essential (primary) hypertension Qualifiers: Hypertension type: essential hypertension Qualified Code(s): I10 - Essential (primary) hypertension Plan: Continue with blood pressure medication. Decrease salt intake and exercise patient takes metoprolol succinate 25 mg once a day (9) Hypercholesterolemia: Code(s): E78.00 - Pure hypercholesterolemia, unspecified Plan: Avoid fried foods, chicken skin, eggs, butter margarine, pastries and meat. Be it pork or beef they have a lot of cholesterol LDL goal of less than 70 and triglyceride of less than 150 on rosuvastatin 40 mg once a day and Zetia 10 mg once a day. Patient is advised to get blood work in 3 months. Orders: Orders Hemoglobin A1c 3 Months R73.01 - Impaired fasting glucose Comprehensive Met. Panel 3 Months R73.01 - Impaired fasting glucose Vitamin B12 and Folate 3 Months I73.9 - Peripheral vascular disease, unspecified Complete Blood Count Auto Diff 3 Months I73.9 - Peripheral vascular disease, unspecified Lipid Panel 3 Months E78.00 - Pure hypercholesterolemia, unspecified, I73.9 - Peripheral vascular disease, unspecified Thyroid Stimulating Hormone 3 Months I73.9 - Peripheral vascular disease, unspecified Free T4 (Free Thyroxine) 3 Months I73.9 - Peripheral vascular disease, unspecified Coding Level of Care Code Est Pt Level 4 (66911) Diagnoses Rupture of left Achilles tendon, initial encounter S86.012A Encounter type: initial encounter Pain of left heel M79.672 Tubular adenoma of colon D12.6 Coronary artery disease involving [place] coronary artery of [place] heart without angina pectoris I25.10 Associated angina: without angina Coronary Disease-Associated Artery/Lesion type: [place] artery [place] vs. transplanted heart: [place] heart Peripheral arterial disease I73.9 Impaired fasting glucose R73.01 Obesity (BMI 30-39.9) E66.9 Essential hypertension I10 Hypertension type: essential hypertension Hypercholesterolemia E78.00
[2024-02-01 09:30] VITALS: BP 134/80; PULSE 77; O2SAT 98; BMI 31.3
== END 2024-02-01 09:55 | disposition home or self-care (01) ==
PROVIDERS: PCP Internal Medicine; Visit Provider Internal Medicine
DX: S86.012A Strain of left Achilles tendon, initial encounter (principal); I25.10 Atherosclerotic heart disease of native coronary artery without angina pectoris; I73.9 Peripheral vascular disease, unspecified; R73.01 Impaired fasting glucose; Z86.010 Personal history of colon polyps; E66.9 Obesity, unspecified; I10 Essential (primary) hypertension; E78.00 Pure hypercholesterolemia, unspecified
CPT/HCPCS: 99214

== ENCOUNTER 2024-02-09 09:00 | Outpatient (RCR) | payer MEDICARE, SELFPAY ==
--- NOTE | 2024-01-11 13:11 | MHC.PT.EP ---
[facility] [place] [facility] [place] [facility] [place] [facility] [address] Megan Morris [address] [phone] F: [phone] F: [phone] F: [phone] F: [phone] Physical Therapy Plan of Care Date of Evaluation: 01/11/24 Date of Surgery: N/A Diagnosis: Rupture of L achilles tendon Assessment: Pt is a 73yo male who presents 8 months s/p Achilles tendon rupture who continues to have pain, cramps, and abnormal gait/balance. Skilled PT indicated to reduce pain/edema, increase strength of intact tissue, improve B LE alignment with R knee extension stretching, promote safety with balance training. Pt in agreement with POC and is motivated to participate. Frequency and Duration: The patient will be seen 2x/week x 4 weeks Short Term Goals: 1. In 2 weeks, patient will be I with phase 1 HEP including gentle stretching of R LE and seated PF ex. 2. In 2 weeks, patient will report <= 2/10 pain when completing balance exercises. 3. In 2 weeks, patient will be able to walk backwards x 20 feet without LOB. 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 In 4 weeks, patient will be able to complete SLS on L LE x 5 seconds with no UE support. 2. In 4 weeks, patient will report reduced muscle cramps in L LE by 50%. 3. Improve LEFS by 10 points indicating improved functional mobility. Treatment Plan: Modalities to reduce pain, spasms and effusion. Manual therapy to restore motion and function. Therapeutic exercise to improve strength and flexibility. Neuromuscular re-education for posture and balance. Therapeutic activities to return to functional activities of daily living. Electronically signed by: Kathie Harmon PT, DPT Please sign and return to therapist. Thank you for your referral.
--- NOTE | 2024-07-26 07:19 | MHC.PT.DC ---
[facility] [place] [facility] [place] [facility] [place] [facility] [address] Megan Morris [address] [phone] F: [phone] F: [phone] F: [phone] F: [phone] Physical Therapy Discharge Report Diagnosis: Rupture of L achilles tendon Date of Surgery: N/A Date of Evaluation: 01/11/24 Date of Discharge: 03/08/24 Treatments to Date: 9 Cancellations to Date: No Shows to Date: Discharge Status: Achieved Goals Independent with HEP Discharge Summary: 02/09/24: LEFS 58/80. Strength 4/5 grossly in ankle and knees. ROM functional. Pain 2/10 max with daily activities. He is I with HEP and appropriate to d/c to HEP At this time. 02/07/24: pt progressing well with skilled PT. improving strength, flex and ROM, balance. we will continue to progress as tolerated. 02/02/24: pt continues to progress well. increased focus on balance with good response and no increased s/s. 01/30/24: pt progressing well with skilled PT. improved gait mechanics and improved balance. we will continue to address these areas moving forward. 01/26/24: pt has been progressing slowly with strength and balance. gait still is deviant but that may linger due to R knee PMH. 01/23/24: pt progressing well with skilled PT. improved gait. still with some discomfort but to lesser degree. still palpable fiber dysruption. 01/19/24: pt with min swelling noted. no other adverse reactions. cp used to finish. progressing strength/balance/proprioception. 01/16/24: pt progressing well with skilled PT. we did add some ROM and strength. no adverse reactions. assess response NV and add HEP. Pt is a 73yo male who presents 8 months s/p Achilles tendon rupture who continues to have pain, cramps, and abnormal gait/balance. Skilled PT indicated to reduce pain/edema, increase strength of intact tissue, improve B LE alignment with R knee extension stretching, promote safety with balance training. Pt in agreement with POC and is motivated to participate. Electronically signed by: Jay Josue, PT Please sign and return to therapist. Thank you for your referral.
== END 2024-07-26 07:19 | disposition home or self-care (01) ==
LOC: HO.PTCHIC 09:00
PROVIDERS: PCP Internal Medicine; Visit Provider Physician Assistant
DX: S86.012D Strain of left Achilles tendon, subsequent encounter (principal)
CPT/HCPCS: 97110; 97112; 97140; 97162

== ENCOUNTER 2024-06-05 05:58 | Outpatient (REF) | payer MEDICARE, SELFPAY ==
[2024-06-05 07:26] LABS: Basophils Percent Auto 0.7 % (0-2); Eosinophils Absolute Auto 0.1 X10*3/uL (0.0-0.4); Eosinophils Percent Auto 1.3 % (0-4); Hematocrit 43.9 % (42.0-52.0); Hemoglobin 15.2 g/dl (14.0-18.0); Imm Gran Abs Auto 0.02 X10*3/uL (0.00-0.03); Imm Gran Pct Auto 0.4 % (0.0-0.4); Lymphocytes Absolute Auto 3.4 X10*3/uL (1.2-4.9); Lymphocytes Percent Auto 63.5 % (20-40); MANUAL DIFF FLAG SCAN; Mean Corpuscular HGB Conc 34.6 g/dl (31.0-36.0); Mean Corpuscular Hemoglobin 34.1 pg (27.0-33.0); Mean Corpuscular Volume 98.4 fL (80.0-98.0); Monocytes Absolute Auto 0.5 X10*3/uL (0.1-1.2); Monocytes Percent Auto 9.7 % (2-11); Neutrophils Absolute Auto 1.3 x10*3/uL (2.0-8.3); Neutrophils Percent Auto 24.4 % (45-73); Platelet Count 144 X10*3/uL (160-400); Red Blood Count 4.46 X10*6/uL (4.60-5.80); Red Cell Distribution Width 13.1 % (11.0-16.0); SCAN SMEAR FLAG 1; White Blood Count 5.4 X10*3/uL (4.8-10.8)
[2024-06-05 07:52] LABS: Estimated Average Glucose 126 mg/dL
[2024-06-05 07:56] LABS: SLIDE REVIEW VERIFIED
[2024-06-05 07:59] LABS: Alanine Aminotransferase 45 U/L (0-40); Albumin Level 4.1 g/dL (3.5-5.0); Alkaline Phosphatase 81 U/L (39-117); Anion Gap 11 (12-20); Aspartate Amino Transferase 36 U/L (5-37); Bilirubin Total 0.8 mg/dL (0.0-1.0); Blood Urea Nitrogen 16 mg/dL (9-16); Calcium 9.6 mg/dL (8.4-10.2); Carbon Dioxide 28 mmol/L (22-29); Chloride 108 mmol/L (96-108); Cholesterol 136 mg/dL (<200); Estimated Glomerular Filt Rate > 60; Glucose Random 115 mg/dL (60-115); HDL Cholesterol 58 mg/dL (>40); LDL Cholesterol Calculated 56 mg/dL (<100); Potassium 4.5 mmol/L (3.3-5.1); Sodium 142 mmol/L (135-145); Total Protein 6.8 g/dL (6.5-8.0); Triglycerides 114 mg/dL (<150)
[2024-06-05 08:13] LABS: Thyroid Stimulating Hormone 4.22 uIU/mL (0.32-4.0)
[2024-06-05 08:25] LABS: Folate 9.3 ng/mL (> or = 4.0); Vitamin B12 414 pg/mL (200-900)
== END 2024-06-05 05:59 | disposition home or self-care (01) ==
LOC: HO.LAB 05:58
PROVIDERS: PCP Internal Medicine; Visit Provider Internal Medicine
DX: I73.9 Peripheral vascular disease, unspecified (principal); E78.00 Pure hypercholesterolemia, unspecified; R73.01 Impaired fasting glucose
CPT/HCPCS: 36415; 80053; 80061; 82607; 82746; 83036; 84439; 84443; 85025

== ENCOUNTER 2024-06-13 10:50 | Outpatient (AMB) | payer MEDICARE, SELFPAY ==
[2024-06-13 11:08] VITALS: BP 136/70; PULSE 69; O2SAT 96; BMI 32.8
--- NOTE | 2024-06-13 11:08 | A.OFFPC_ITS ---
Vital Signs 06/13/24 11:08 Height 5 ft 11 in Weight 235 lb BMI 32.8 BP 136/70 Blood Pressure Location Lt brachial Position Sitting Pulse 69 Pulse Source Pulse Oximeter Pulse Oximetry (%) 96 Oxygen Delivery Method Room Air Intake Visit Reasons: cholesterol , HTN Allergies No Known Allergies [No Known Allergies*] Allergy (Verified 06/13/24 11:09) Medication List - Last Reconciled 06/13/24 by Kacy Fonseca MD cholecalciferol (vitamin D3) 50 mcg PO DAILY clopidogrel 75 mg PO DAILY cyclobenzaprine 10 mg PO BEDTIME PRN ezetimibe (Zetia) 10 mg PO DAILY metoprolol succinate ER 25 mg PO DAILY rosuvastatin 40 mg PO DAILY tramadol 50 mg PO TID 30 days Tobacco use date assessed: 02/01/24 Fall risk assessment: No Falls in past year Last assessed Fall Risk: 06/13/24 Dental Screening Dental Screen Date: 02/01/24 HPI cholesterol , HTN HPI Details 74-year-old obese male with coronary art isia disease peripheral arterial disease impaired glucose tolerance hypertension hypercholesterolemia last seen in January 2024. Patient follows up with orthopedics having left heel and left Achilles tendon pain. Patient was last seen by cardiology 09/12/2023 and for the coronary artery disease he was requested to have an echocardiogram. He does have mild with bile dilatation of the aorta. [facility] Medical History Blind right eye Peripheral vascular disease Hypercholesterolemia Erectile dysfunction BPH (benign prostatic hyperplasia) Peripheral arterial disease Dilatation of aorta Pulmonary nodule Osteoarthritis of left knee Vitamin D deficiency Impaired fasting glucose Obesity (BMI 30-39.9) History of renal calculi Hypertension Vocal cord polyp Coronary artery disease Carpal tunnel syndrome Surgical History S/P right knee arthroscopy History of endarterectomy Status post endovenous radiofrequency ablation of saphenous vein History of placement of stent in LAD coronary artery History of carpal tunnel release History of surgery History of vocal cord polypectomy History of arthroscopy of left knee Coronary artery disease involving coronary bypass graft Hx of total hip arthroplasty History of arthroscopy of right knee History of appendectomy Family History Father CVD (cardiovascular disease) Stroke Brain aneurysm Mother CVD (cardiovascular disease) Hypertension Sister Leukemia Brother Lung cancer Social History Housing: House Patient Tobacco Use Status: Former Tobacco user Tobacco use type: Cigarette e-Cigarette/Vaping Use: Never Used Second Hand Smoke Exposure: No service: No 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 1. Little interest or pleasure in doing things: not at all 2. Feeling down, depressed, or hopeless: not at all 3. Trouble falling or staying asleep, or sleeping too much: not at all 4. Feeling tired or having little energy: not at all 5. Poor appetite or overeating: not at all 6. Feeling bad about yourself - or that you are a failure or have let yourself or your family down: not at all 7. Trouble concentrating on things, such as reading the newspaper or watching television: not at all 8. Moving or speaking so slowly that other people could have noticed. Or the opposite - being so fidgety or restless that you have been moving around a lot more than usual: not at all 9. Thoughts that you would be better off or of hurting yourself in some way: not at all Total score: 0 Depression Screening Interpretation: Negative Depression Screening Done: Yes 28929 - PHQ-9 Billing: Yes Source: Developed by Drs. Yonas Britt, Therese Harris, Freddy Antonio and colleagues, with an educational humble from [employer]. Thrive Questionnaire Date Thrive assessed: 02/01/24 AUDIT C Alcohol Use Questionnaire (AUDIT-C) 1. How often do you have a drink containing alcohol?: 2-3 times a week 2. How many drinks containing alcohol do you have on a typical day when you are drinking?: 3 or 4 3. How often do you have six or more drinks on one occasion?: Never Total Score: 4 Score Reviewed/Action Taken: Yes ROMAN-7 AMB Questionnaire ROMAN-7 Date ROMAN - 7 assessed: 02/01/24 Source: Developed by Drs. Yonas L. BalwinderTherese rivas, Freddy Antonio and colleagues, with an educational humble from [employer]. Physical exam (Primary Care) Vital Signs: Last Vital Signs Pulse 69 06/13/24 11:08 BP 136/70 06/13/24 11:08 Pulse Ox 96 06/13/24 11:08 Oxygen Delivery Method Room Air 06/13/24 11:08 BMI result Body Mass Index 32.8 Tobacco/Smoking Status: Tobacco use Status Tobacco use date assessed 02/01/24 06/13/24 11:09 Patient Tobacco Use Status Former Tobacco user 06/13/24 11:09 Tobacco use type Cigarette 06/13/24 11:09 e-Cigarette/Vaping Use Never Used 06/13/24 11:09 PHQ-9: PHQ-9 Score PHQ-9: Total score 0 06/13/24 11:22 Depression Screening Interpretation: Negative Thrive Assessment: Date of Thrive Assessment Date Thrive assessed 02/01/24 06/13/24 11:09 Const General: alert; No acute distress Eyes Conjunctivae: conjunctivae normal Resp Auscultation: clear to auscultation bilaterally Cardio Rate: regular rate Rhythm: regular rhythm GI Inspection: Yes normal to inspection Extrem General: Yes normal to inspection and No edema Assessment and Plan Assessment & Plan (1) Pain of left heel: Comment: xray 05/14/2023 showing 3mm distal tip of fibular fracture Code(s): M79.672 - Pain in left foot Plan: Patient had physical therapy done (2) Coronary artery disease: Comment: 1997 stent placement December 1999 Code(s): I25.10 - Atherosclerotic heart disease of [place] coronary artery without angina pectoris Qualifiers: Coronary Disease-Associated Artery/Lesion type: [place] artery [place] vs. transplanted heart: [place] heart Associated angina: without angina Qualified Code(s): I25.10 - Atherosclerotic heart disease of [place] coronary artery without angina pectoris Plan: Control the cholesterol, weight, blood pressure, presently on clopidogrel (3) Hypertension: Code(s): I10 - Essential (primary) hypertension Qualifiers: Hypertension type: essential hypertension Qualified Code(s): I10 - Essential (primary) hypertension Plan: Continue with blood pressure medication. Decrease salt intake and exercise on metoprolol (4) Obesity (BMI 30-39.9): Code(s): E66.9 - Obesity, unspecified Plan: Diet and exercise (5) Impaired fasting glucose: Code(s): R73.01 - Impaired fasting glucose Plan: Decrease the amount of carbohydrate intake, pasta, bread, rice and potatoes are all sugar and that is aside from all the sweet stuff, remember that fruits are good but they are Sweet also. (6) Peripheral arterial disease: Comment: EDISON August 2021 right posterior tibial artery and left posterior tibial artery significant disease R Femoral endarterectomy Dr. Lancaster July 2022 Code(s): I73.9 - Peripheral vascular disease, unspecified Plan: When sitting down elevate the legs, exercise, and support stockings (7) Hypercholesterolemia: Code(s): E78.00 - Pure hypercholesterolemia, unspecified Plan: Cholesterol on rosuvastatin and Zetia (8) Tubular adenoma of colon: Comment: Dr. Lara September 2021 Code(s): D12.6 - Benign neoplasm of colon, unspecified Plan: Reminded about colonoscopy (9) Aortic stenosis: Code(s): I35.0 - Nonrheumatic aortic (valve) stenosis Plan: This is being followed up by cardiology 09/12/2023 note echocardiogram requested (10) Ascending aorta dilatation: Code(s): I77.810 - Thoracic aortic ectasia Plan: 09/12/2023 note from Cardiology echocardiogram requested Orders: Orders Hemoglobin A1c 3 Months R73.01 - Impaired fasting glucose Comprehensive Met. Panel 3 Months R73.01 - Impaired fasting glucose Thyroid Stimulating Hormone 3 Months R73.01 - Impaired fasting glucose Free T4 (Free Thyroxine) 3 Months R73.01 - Impaired fasting glucose Coding Level of Care Code Est Pt Level 4 (88520) Diagnoses Pain of left heel M79.672 Coronary artery disease involving [place] coronary artery of [place] heart without angina pectoris I25.10 Coronary Disease-Associated Artery/Lesion type: [place] artery [place] vs. transplanted heart: [place] heart Associated angina: without angina Essential hypertension I10 Hypertension type: essential hypertension Obesity (BMI 30-39.9) E66.9 Impaired fasting glucose R73.01 Peripheral arterial disease I73.9 Hypercholesterolemia E78.00 Tubular adenoma of colon D12.6 Aortic stenosis I35.0 Ascending aorta dilatation I77.810
== END 2024-06-13 12:04 | disposition home or self-care (01) ==
PROVIDERS: PCP Internal Medicine; Visit Provider Internal Medicine
DX: M79.672 Pain in left foot (principal); I25.10 Atherosclerotic heart disease of native coronary artery without angina pectoris; I10 Essential (primary) hypertension; E66.9 Obesity, unspecified; R73.01 Impaired fasting glucose; I73.9 Peripheral vascular disease, unspecified; E78.00 Pure hypercholesterolemia, unspecified; D12.6 Benign neoplasm of colon, unspecified; I35.0 Nonrheumatic aortic (valve) stenosis; I77.810 Thoracic aortic ectasia
CPT/HCPCS: 99214

== ENCOUNTER 2024-08-28 08:12 | Outpatient (AMB) | payer MEDICARE, SELFPAY ==
--- NOTE | 2024-08-28 08:22 | AM.OFFWIN_ITS ---
Intake Vital Signs 08/28/24 08:24 Height 5 ft 11 in Weight 230 lb BMI 32.1 BP 144/80 H Blood Pressure Location Lt brachial Position Sitting Pulse 79 Pulse Source Pulse Oximeter Temp 98.1 F Temp Source Oral Pulse Oximetry (%) 97 Oxygen Delivery Method Room Air Intake Visit Reasons: EP ? Bronchitis, coughing for over 10 days Patient Tobacco Use Status: Former Tobacco user Allergies No Known Allergies [No Known Allergies*] Allergy (Verified 06/13/24 11:09) HPI HPI Comments History of Present Illness Details He presents to office with concern bronchitis He was at a show with people on the 18 of August Woke up the next morning with laryngitis This has resolved but constant cough since Worse at night 10 days with symptoms He said am brings up phlegm Some fatigue at end of day No fever or chills No congestion or sinus pressure He has tried mucinex and delsum without relief PFSH Medical History Blind right eye Peripheral vascular disease Hypercholesterolemia Erectile dysfunction BPH (benign prostatic hyperplasia) Peripheral arterial disease Dilatation of aorta Pulmonary nodule Osteoarthritis of left knee Vitamin D deficiency Impaired fasting glucose Obesity (BMI 30-39.9) History of renal calculi Hypertension Vocal cord polyp Coronary artery disease Carpal tunnel syndrome Surgical History S/P right knee arthroscopy History of endarterectomy Status post endovenous radiofrequency ablation of saphenous vein History of placement of stent in LAD coronary artery History of carpal tunnel release History of surgery History of vocal cord polypectomy History of arthroscopy of left knee Coronary artery disease involving coronary bypass graft Hx of total hip arthroplasty History of arthroscopy of right knee History of appendectomy Family History Father CVD (cardiovascular disease) Stroke Brain aneurysm Mother CVD (cardiovascular disease) Hypertension Sister Leukemia Brother Lung cancer Social History Housing: House Patient Tobacco Use Status: Former Tobacco user Tobacco use type: Cigarette e-Cigarette/Vaping Use: Never Used Second Hand Smoke Exposure: No service: No 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) Cognitive needs: No Hearing needs: No Vision needs: Yes Review of Systems Const Denies chills, Reports fatigue, Denies fever(s) and Reports headache(s) (with coughing only) Eyes Denies blurry vision ENT Denies otalgia, Reports headache(s) (with coughing only), Reports nasal congestion, Denies nasal discharge, Denies nasal obstruction, Denies sinus pain and Denies sore throat Card Denies chest pain Resp Reports chest congestion, Reports cough and Denies hemoptysis GI Denies abdominal pain Musc Denies myalgias Skin/Breast Denies rash Neuro Reports headache(s) (with coughing only) Endo Reports fatigue Physical Exam Vital Signs: Last Vital Signs Temp 98.1 F 08/28/24 08:24 Pulse 79 08/28/24 08:24 BP 144/80 H 08/28/24 08:24 Pulse Ox 97 08/28/24 08:24 Oxygen Delivery Method Room Air 08/28/24 08:24 BMI result Body Mass Index 32.1 General: Non-toxic, NAD. Speaking full sentences. Skin: Warm dry throughout Eye: EOMI HENT: Airway patent. Uvula midline. No pharyngeal erythema or edema. 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 Bilateral canals clear. TM non-erythematous, non-bulging. No TM perforation or hemotympanum noted. Respiratory: Slight rhonchi L lower lung. Otherwise CTA bilaterally. No wheezes, rales Cardiac: RRR. No murmur MSK: Full ROM extremities. Neurology: A/O. No aphasia or facial droop. Gait without abnormality Psych: Good mood and affect Assessment & Plan Assessment & Plan (1) Bronchitis: Code(s): J40 - Bronchitis, not specified as acute or chronic Plan: Patient seen and evaluated. Will cover with Azithromycin Patient gave verbal understanding and had no additional questions or concerns at time of discharge All questions answered Medications: New azithromycin For 250 mg dose pack: take 500 mg today (day 1), then 250 mg for 4 days (days 2-5) PO 6 tabs 0RF Coding Level of Care Code Est Pt Level 3 (15420) Diagnoses Bronchitis J40
[2024-08-28 08:24] VITALS: BP 144/80; PULSE 79; TEMP 36.7; O2SAT 97; BMI 32.1
== END 2024-08-28 09:08 | disposition home or self-care (01) ==
PROVIDERS: PCP Internal Medicine; Visit Provider Physician Assistant
DX: J40 Bronchitis, not specified as acute or chronic (principal)

== ENCOUNTER → 2024-08-28 08:12 | Outpatient (BNVA) | payer MEDICARE, SELFPAY | PROVIDERS: PCP Internal Medicine; Visit Provider Physician Assistant | DX: J40 Bronchitis, not specified as acute or chronic (principal) | CPT/HCPCS: 99212 ==

== ENCOUNTER 2024-09-12 09:41 | Outpatient (AMB) | payer MEDICARE, SELFPAY ==
[2024-09-12 09:43] VITALS: BP 130/78; PULSE 68; O2SAT 98; BMI 32.2
--- NOTE | 2024-09-12 09:43 | A.OFFPC_ITS ---
Vital Signs 09/12/24 09:43 Height 5 ft 11 in Weight 231 lb 0.8 oz BMI 32.2 BP 130/78 Blood Pressure Location Lt brachial Position Sitting Pulse 68 Pulse Source Pulse Oximeter Pulse Oximetry (%) 98 Oxygen Delivery Method Room Air Intake Visit Reasons: ANNUAL/Lab Results Investigation Lieutenant Required: No Allergies No Known Allergies [No Known Allergies*] Allergy (Verified 09/12/24 10:06) Medication List - Last Reconciled 09/12/24 by Rita Zaragoza PA-C clopidogrel 75 mg PO DAILY cyclobenzaprine 10 mg PO BEDTIME PRN ezetimibe (Zetia) 10 mg PO DAILY metoprolol succinate ER 25 mg PO DAILY rosuvastatin 40 mg PO DAILY Tobacco use date assessed: 09/12/24 Fall risk assessment: No Falls in past year Last assessed Fall Risk: 09/12/24 Dental Screening Dental Screen Date: 09/12/24 Did you have a dental visit in the last 12 months?: No Did you have a dental problem in the last 6 months where you did not have access to dental care?: No HPI ANNUAL/Lab Results HPI Details 74-year-old obese male with coronary art isai disease peripheral arterial disease impaired glucose tolerance hypertension hypercholesterolemia last seen 05/[address] Fonseca coming in for annual exam.? In review of the notes, patient was seen by [facility] 08/13/2024 doing well on current medication regimen found to have mild aortic stenosis with repeat echo in 2 years. Patient was seen by his vascular surgeon Dr. Lancaster at [facility] last week. He is doing well on his medications and has not had worsening leg swelling or pain. He has no acute concerns today. [facility] Medical History Blind right eye Peripheral vascular disease Hypercholesterolemia Erectile dysfunction BPH (benign prostatic hyperplasia) Peripheral arterial disease Dilatation of aorta Pulmonary nodule Osteoarthritis of left knee Vitamin D deficiency Impaired fasting glucose Obesity (BMI 30-39.9) History of renal calculi Hypertension Vocal cord polyp Coronary artery disease Carpal tunnel syndrome Surgical History S/P right knee arthroscopy History of endarterectomy Status post endovenous radiofrequency ablation of saphenous vein History of placement of stent in LAD coronary artery History of carpal tunnel release History of surgery History of vocal cord polypectomy History of arthroscopy of left knee Coronary artery disease involving coronary bypass graft Hx of total hip arthroplasty History of arthroscopy of right knee History of appendectomy Family History Father CVD (cardiovascular disease) Stroke Brain aneurysm Mother CVD (cardiovascular disease) Hypertension Sister Leukemia Brother Lung cancer Social History Housing: House Patient Tobacco Use Status: Former Tobacco user Tobacco use type: Cigarette e-Cigarette/Vaping Use: Never Used Second Hand Smoke Exposure: No service: No 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 1. Little interest or pleasure in doing things: not at all 2. Feeling down, depressed, or hopeless: not at all 3. Trouble falling or staying asleep, or sleeping too much: not at all 4. Feeling tired or having little energy: not at all 5. Poor appetite or overeating: not at all 6. Feeling bad about yourself - or that you are a failure or have let yourself or your family down: not at all 7. Trouble concentrating on things, such as reading the newspaper or watching television: not at all 8. Moving or speaking so slowly that other people could have noticed. Or the opposite - being so fidgety or restless that you have been moving around a lot more than usual: not at all 9. Thoughts that you would be better off or of hurting yourself in some way: not at all Total score: 0 Depression Screening Interpretation: Negative Depression Screening Done: Yes 62797 - PHQ-9 Billing: Yes Source: Developed by Drs. Yonas Britt, Therese Harris, Freddy Antonio and colleagues, with an educational humble from [employer]. Thrive Questionnaire Date Thrive assessed: 02/01/24 I am a: Patient What is your living situation today?: I have a steady place to live Within the past 12 months, did the food you bought not last and you didn't have the money to get more?: I choose not to answer this question Within the past 12 months, did you worry whether your food would run out before you got money to buy more?: I choose not to answer this question Do you have trouble paying for medicines?: No Do you have trouble getting transportation to medical appointments?: No Do you have trouble paying your heating and electricity bill?: No Do you have trouble taking care of your child, family member or friend?: I choose not to answer this question Do you have trouble with day-to-day activities such as bathing, preparing meals, shopping, managing finances, etc.?: No Are you currently unemployed and looking for a job?: No Are you interested in more education?: No Please select the resources that you would like help with: None Currently or been in a relationship where the following occur: I choose not to answer THRIVE Score: 0 AUDIT C Alcohol Use Questionnaire (AUDIT-C) 1. How often do you have a drink containing alcohol?: Monthly or less 2. How many drinks containing alcohol do you have on a typical day when you are drinking?: 1 or 2 3. How often do you have six or more drinks on one occasion?: Less than monthly Total Score: 2 Score Reviewed/Action Taken: Yes ROMAN-7 AMB Questionnaire ROMAN-7 Date ROMAN - 7 assessed: 09/12/24 Feeling nervous, anxious, or on edge: 0 = Not at all Not being able to stop or control worryin = Not at all Worrying too much about different things: 0 = Not at all Trouble relaxin = Not at all Being so restless that it is hard to sit still: 0 = Not at all Becoming easily annoyed or irritable: 0 = Not at all Feeling afraid as if something awful might happen: 0 = Not at all Total ROMAN-7 score (0-4 normal; 5-9 mild; 10-14 moderate; 15-21 severe): 0 Source: Developed by Drs. Yonsa Britt, Therese Harris, Freddy Antonio and colleagues, with an educational humble from [employer]. ROMAN-7 Assessment Billing ROMAN-7 Assessment Tool: ROMAN-7 Assessment 61673 Review of Systems Const Denies body aches, Denies fatigue, Denies fever(s), Denies frequent falls, Denies headache(s) and Denies weakness Eyes Reports no additional complaints and Denies change in vision ENT Denies dysphagia, Denies dizziness, Denies facial pain, Denies headache(s), Denies nasal congestion and Denies odynophagia Card Denies chest pain, Denies syncope, Denies irregular heart rhythm, Denies leg edema, Denies lightheadedness and Denies dyspnea Resp Denies cough and Denies dyspnea GI Denies constipation, Denies dysphagia, Denies dyspepsia, Denies diarrhea, Denies nausea, Denies odynophagia and Denies vomiting Denies dysuria, Denies urinary frequency, Denies urinary hesitancy and Denies urinary urgency Musc Denies back pain and Denies myalgias Skin/Breast Reports system reviewed and no additional complaints, except as documented Neuro Denies dizziness, Denies syncope, Denies frequent falls, Denies headache(s) and Denies weakness Psych Reports no additional complaints Endo Denies fatigue Physical exam (Primary Care) Vital Signs: Last Vital Signs Pulse 68 09/12/24 09:43 BP 130/78 09/12/24 09:43 Pulse Ox 98 09/12/24 09:43 Oxygen Delivery Method Room Air 09/12/24 09:43 BMI result Body Mass Index 32.2 BMI Assessment/Plan discussion: High BMI High, discussed plan: lifestyle, dietary and physical activity Tobacco/Smoking Status: Tobacco use Status Tobacco use date assessed 09/12/24 09/12/24 09:54 Patient Tobacco Use Status Former Tobacco user 09/12/24 09:44 Tobacco use type Cigarette 09/12/24 09:44 e-Cigarette/Vaping Use Never Used 09/12/24 09:44 PHQ-9: PHQ-9 Score PHQ-9: Total score 0 09/12/24 09:52 Depression Screening Interpretation: Negative Thrive Assessment: Date of Thrive Assessment Date Thrive assessed 02/01/24 09/12/24 09:44 Currently or been in a relationship where the following occur: I choose not to answer Const General: cooperative, healthy appearing, comfortable and no acute distress Orientation/consciousness: patient oriented x3 HENMT Head: Yes normocephalic Ears: hearing grossly normal bilaterally, external ears normal, TM's normal bilaterally and EAC's normal General nose exam: Normal external nose present Face and sinus: Yes normal facial exam and Yes sinuses nontender Mouth: Normal oral and palatal mucosa present and tongue normal Throat: Yes posterior oropharynx normal Eyes General: appearance normal, both eyes and all related structures Conjunctivae: conjunctivae normal Pupils: Equal, round and reactive pupils present EOM: EOMs intact bilaterally and No Nystagmus present Neck Neck: Yes normal visual inspection, Yes full ROM and Yes no lymphadenopathy Chest Chest palpation & inspection: normal inspection of the chest Resp Effort & Inspection: normal respiratory effort Auscultation: clear to auscultation bilaterally, no crackles, no rales, no rhonchi, no wheezes and breath sounds present Cardio Rate: regular rate Rhythm: regular rhythm Peripheral pulses: radial pulses present and dorsalis pedis present GI Inspection: Yes normal to inspection and No Abdominal wall edema Palpation (GI): Soft to palpation, not firm and nontender Auscultation: normal bowel sounds Rectal Exam - Male: Yes deferred General: Yes no CVA tenderness Back/Spine/Pelvis Back: no CVA tenderness Skin General skin exam: no rashes or lesions noted Neuro General: patient oriented x3 Cranial nerves: Yes Equal, round and reactive pupils present, Yes Midline tongue present, Yes Ability to bilaterally elevate shoulders present and No Nystagmus present Gait exam (Neuro): Normal gait present Extrem General: Yes normal to inspection, Yes full ROM, No no pedal edema and No edema Psych Speech and movement: Normal speech and movement present Affect: normal affect Insight: Good insight present (Psych) Judgement: Good judgement present (Psych) Coding Level of Care Code Est Pt Prev Care >65y(62466) Diagnoses Aortic stenosis I35.0 Ascending aorta dilatation I77.810 Vitamin B12 deficiency E53.8 Tubular adenoma of colon D12.6 Hypercholesterolemia E78.00 Peripheral arterial disease I73.9 Benign prostatic hyperplasia with urinary frequency N40.1; R35.0 Lower urinary tract symptom presence: symptoms present Lower urinary tract symptom detail: urinary frequency Impaired fasting glucose R73.01 Obesity (BMI 30-39.9) E66.9 Essential hypertension I10 Hypertension type: essential hypertension Coronary artery disease involving [place] coronary artery of [place] heart without angina pectoris I25.10 Coronary Disease-Associated Artery/Lesion type: [place] artery [place] vs. transplanted heart: [place] heart Associated angina: without angina Annual physical exam Z00.00 Additional Codes ROMAN-7 Assessment Billing - ROMAN-7 Assessment Tool: ROMAN-7 Assessment 94491 ([id number]) PHQ-9 - 96113 - PHQ-9 Billing: Yes ([id number]) Assessment & Plan Assessment & Plan (1) Aortic stenosis: Comment: Echocardiogram from 07/16/2024 showing: Normal LV size with mild concentric hypertrophy Normal LV systolic function (EF 60-65%) Indeterminate diastolic function Normal RV size with normal RV systolic function Moderately dilated left atrium sclerae degenerative valve disease with combined mild aortic stenosis and regurgitation Code(s): I35.0 - Nonrheumatic aortic (valve) stenosis Category: Medical Plan: Currently following with [facility] with routine echocardiogram performed in 2 years and follow up in 1 year. (2) Ascending aorta dilatation: Code(s): I77.810 - Thoracic aortic ectasia Category: Medical Plan: We will continue to follow with Cardiology and routine echocardiograms. (3) Vitamin B12 deficiency: Code(s): E53.8 - Deficiency of other specified B group vitamins Category: Medical Plan: We will continue to monitor with routine blood work (4) Tubular adenoma of colon: Comment: Dr. Lara September 2021 Code(s): D12.6 - Benign neoplasm of colon, unspecified Category: Medical Plan: Tubular adenoma follow up in 3-5 years. (5) Hypercholesterolemia: Code(s): E78.00 - Pure hypercholesterolemia, unspecified Category: Medical Plan: Avoid foods that are high in cholesterol such as red meat, fried foods, eggs and baked goods. Triglyceride goal of less than 150 and LDL goal of less than 70. Continue on rosuvastatin 40 mg and Zetia 10 mg. (6) Peripheral arterial disease: Comment: EDISON August 2021 right posterior tibial artery and left posterior tibial artery significant disease R Femoral endarterectomy Dr. Lancaster July 2022 Code(s): I73.9 - Peripheral vascular disease, unspecified Category: Medical Plan: Advised tight control of blood pressure, cholesterol and blood sugars. Continue on anticoagulation. Per Cardiology could not tolerate cilostazol (7) BPH (benign prostatic hyperplasia): Code(s): N40.0 - Benign prostatic hyperplasia without lower urinary tract symptoms Category: Medical Qualifiers: Lower urinary tract symptom presence: symptoms present Lower urinary tract symptom detail: urinary frequency Qualified Code(s): N40.1 - Benign prostatic hyperplasia with lower urinary tract symptoms; R35.0 - Frequency of micturition Plan: Continue to monitor routine PSAs. Symptoms under good control at this time. (8) Impaired fasting glucose: Code(s): R73.01 - Impaired fasting glucose Category: Medical Plan: Decrease the amount of carbohydrates such as pasta, bread, rice, and potatoes and limit the amount of sweets. Although fruits are generally healthy they should be eaten in moderation as they are still high in sugar. (9) Obesity (BMI 30-39.9): Code(s): E66.9 - Obesity, unspecified Category: Medical Plan: Healthy diet and regular exercise is encouraged. (10) Hypertension: Code(s): I10 - Essential (primary) hypertension Category: Medical Qualifiers: Hypertension type: essential hypertension Qualified Code(s): I10 - Essential (primary) hypertension Plan: Continue on current blood pressure medication. Avoid salt intake and encourage healthy diet and regular exercise. Continue on metoprolol 25 mg (11) Coronary artery disease: Comment: 1997 stent placement December 1999 Code(s): I25.10 - Atherosclerotic heart disease of [place] coronary artery without angina pectoris Category: Medical Qualifiers: Coronary Disease-Associated Artery/Lesion type: [place] artery [place] vs. transplanted heart: [place] heart Associated angina: without angina Qualified Code(s): I25.10 - Atherosclerotic heart disease of [place] coronary artery without angina pectoris Plan: Advised tight control of blood pressure, blood sugar and cholesterol. Continue to follow with director of curriculum's (12) Annual physical exam: Code(s): Z00.00 - Encounter for general adult medical examination without abnormal findings Category: Medical Plan: Patient is up-to-date on all recommended routine screenings and vaccinations for his age. Ordered for repeat blood work. Follow up in 3 months. Plan This note was constructed using voice recognition software. While every effort has been made to ensure accuracy and recreation engineer, still areas may have been included sometimes these areas may affect the content or meeting of the given symptoms. Total time spent caring for the patient today was 30 minutes. This includes time spent before the visit reviewing the chart, time spent during the visit, and time spent after the visit and documentation.
== END 2024-09-12 10:42 | disposition home or self-care (01) ==
PROVIDERS: PCP Internal Medicine
DX: Z00.00 Encounter for general adult medical examination without abnormal findings (principal); I35.0 Nonrheumatic aortic (valve) stenosis; I77.810 Thoracic aortic ectasia; I73.9 Peripheral vascular disease, unspecified; E53.8 Deficiency of other specified B group vitamins; D12.6 Benign neoplasm of colon, unspecified; E78.00 Pure hypercholesterolemia, unspecified; N40.1 Benign prostatic hyperplasia with lower urinary tract symptoms; R35.0 Frequency of micturition; R73.01 Impaired fasting glucose; E66.9 Obesity, unspecified; I10 Essential (primary) hypertension

== ENCOUNTER 2024-09-12 09:41 | Outpatient (REF) | payer MEDICARE, SELFPAY ==
[2024-09-12 11:52] LABS: Estimated Average Glucose 128 mg/dL; Hemoglobin A1C 163.0421 umol/L; Hemoglobin A1c % 6.1 % (<6.0)
[2024-09-12 12:36] LABS: Alanine Aminotransferase 44 U/L (0-40); Alkaline Phosphatase 84 U/L (39-117); Anion Gap 10 (12-20); Aspartate Amino Transferase 42 U/L (5-37); Bilirubin Total 0.5 mg/dL (0.0-1.0); Blood Urea Nitrogen 18 mg/dL (9-16); Calcium 9.6 mg/dL (8.4-10.2); Carbon Dioxide 29 mmol/L (22-29); Chloride 105 mmol/L (96-108); Estimated Glomerular Filt Rate > 60; Glucose Random 126 mg/dL (60-115); Potassium 4.2 mmol/L (3.3-5.1); Sodium 140 mmol/L (135-145); Total Protein 6.8 g/dL (6.5-8.0)
[2024-09-12 12:37] LABS: Free T4 (Free Thyroxine) 0.86 ng/dL (0.71-1.85); Thyroid Stimulating Hormone 2.14 uIU/mL (0.32-4.0)
== END 2024-09-12 09:42 | disposition home or self-care (01) ==
LOC: HO.LAB 09:41
PROVIDERS: PCP Internal Medicine; Referring Provider Internal Medicine
DX: R73.01 Impaired fasting glucose (principal); Z00.00 Encounter for general adult medical examination without abnormal findings; E66.9 Obesity, unspecified; E53.8 Deficiency of other specified B group vitamins; I73.9 Peripheral vascular disease, unspecified; N40.1 Benign prostatic hyperplasia with lower urinary tract symptoms; R35.0 Frequency of micturition; I10 Essential (primary) hypertension; I25.10 Atherosclerotic heart disease of native coronary artery without angina pectoris; E78.00 Pure hypercholesterolemia, unspecified; I77.810 Thoracic aortic ectasia; I35.0 Nonrheumatic aortic (valve) stenosis
CPT/HCPCS: 36415; 80053; 83036; 84439; 84443; 96127; 99397

== ENCOUNTER 2024-12-04 08:40 | Outpatient (AMB) | payer MEDICARE, SELFPAY ==
--- NOTE | 2024-12-04 09:20 | MHC.OFFWIV ---
Intake Vital Signs 12/04/24 09:21 Weight 229 lb BP 136/70 Blood Pressure Location Rt brachial Position Sitting Pulse 95 Pulse Source Pulse Oximeter Temp 100.3 F Temp Source Oral Pulse Oximetry (%) 94 Oxygen Delivery Method Room Air Intake Visit Reasons: EP-sore throat, headaches, ribs pain, cough Intake Note: Patient here for headaches and rib pain from coughing that started Tuesday. Patient Tobacco Use Status: Former Tobacco user Allergies No Known Allergies [No Known Allergies*] Allergy (Verified 12/04/24 09:22) Do you need a note to return to daycare/school/sports/work: No HPI HPI Comments History of Present Illness Details This is a 74-year-old male with past medical history of hypertension, hyperlipidemia, peripheral artery disease, BPH and coronary artery disease presenting for evaluation of a scratchy throat, headaches, cough and nausea that he has had since Tuesday. Patient has not been taking any [id number] medication for treatment of his symptoms. Patient presents febrile to the clinic this morning. [facility] Medical History Blind right eye Peripheral vascular disease Hypercholesterolemia Erectile dysfunction BPH (benign prostatic hyperplasia) Peripheral arterial disease Dilatation of aorta Pulmonary nodule Osteoarthritis of left knee Vitamin D deficiency Impaired fasting glucose Obesity (BMI 30-39.9) History of renal calculi Hypertension Vocal cord polyp Coronary artery disease Carpal tunnel syndrome Surgical History S/P right knee arthroscopy History of endarterectomy Status post endovenous radiofrequency ablation of saphenous vein History of placement of stent in LAD coronary artery History of carpal tunnel release History of surgery History of vocal cord polypectomy History of arthroscopy of left knee Coronary artery disease involving coronary bypass graft Hx of total hip arthroplasty History of arthroscopy of right knee History of appendectomy Family History Father CVD (cardiovascular disease) Stroke Brain aneurysm Mother CVD (cardiovascular disease) Hypertension Sister Leukemia Brother Lung cancer Social History Housing: House Patient Tobacco Use Status: Former Tobacco user Tobacco use type: Cigarette e-Cigarette/Vaping Use: Never Used Second Hand Smoke Exposure: No service: No 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) Cognitive needs: No Hearing needs: No Vision needs: Yes Review of Systems Const All systems reviewed & are unremarkable except as noted in HPI and below Reports body aches, Denies chills, Reports fatigue, Denies fever(s) and Reports headache(s) Eyes Reports no additional complaints ENT Denies otalgia, Reports headache(s), Denies post nasal drip and Reports sore throat Card Reports no additional complaints and Denies dyspnea Resp Reports cough, Denies hemoptysis, Denies dyspnea and Denies wheezing GI Reports nausea and Denies vomiting Reports no additional complaints Musc Reports no additional complaints Skin/Breast Reports system reviewed and no additional complaints, except as documented Neuro Reports no additional complaints and Reports headache(s) Psych Reports no additional complaints Endo Reports no additional complaints and Reports fatigue Chas/Lymph Reports no additional complaints Aller/Immun Reports no additional complaints and Denies wheezing Physical Exam Vital Signs: Last Vital Signs Temp 100.3 F 12/04/24 09:21 Pulse 95 12/04/24 09:21 BP 136/70 12/04/24 09:21 Pulse Ox 94 12/04/24 09:21 Oxygen Delivery Method Room Air 12/04/24 09:21 Patient is febrile. Const General: cooperative, healthy appearing, comfortable, no acute distress, well developed, alert, awake and Physically active; No acute distress Nutritional Appearance: overweight Orientation/consciousness: patient oriented x3 Limitations: no limitations HEENT Head: Yes normal to inspection and Yes normocephalic Ears: hearing grossly normal bilaterally, external ears normal, TM's normal bilaterally and EAC's normal General nose exam: Normal external nose present Face and sinus: Yes normal facial exam Mouth: Normal oral and palatal mucosa present and moist mucous membranes Throat: Yes posterior oropharynx normal Eyes General: appearance normal, both eyes and all related structures Neck Lymphatic: no lymphadenopathy noted Resp Effort & Inspection: normal respiratory effort, able to speak in complete sentences, no audible wheezes, no cough and not tachypneic Auscultation: clear to auscultation bilaterally Cardio Rate: regular rate Rhythm: regular rhythm Skin General skin exam: no rashes or lesions noted Neuro General: patient oriented x3 Psych Appearance: grossly normal Mental Status: mental status grossly normal Insight: Good insight present (Psych) Judgement: Good judgement present (Psych) Results Reviewed Results Reviewed: CXR no acute findings. Assessment & Plan Assessment & Plan (1) Acute upper respiratory infection: Comment: SARS panel is ordered and results are pending. Code(s): J06.9 - Acute upper respiratory infection, unspecified Plan: No acute findings noted on chest x-ray. Tylenol or ibuprofen for fever, Mucinex OTC with increased clear fluids daily. Orders: Orders XR chest 2V Today J06.9 - Acute upper respiratory infection, unspecified SARS-CoV2/FLU/RSV Today J06.9 - Acute upper respiratory infection, unspecified Coding Level of Care Code Est Pt Level 4 (89893) Diagnoses Acute upper respiratory infection J06.9 Time Spent (min) 25
[2024-12-04 09:21] VITALS: BP 136/70; PULSE 95; TEMP 37.9; O2SAT 94
== END 2024-12-04 10:46 | disposition home or self-care (01) ==
PROVIDERS: PCP Internal Medicine; Visit Provider Physician Assistant
DX: J06.9 Acute upper respiratory infection, unspecified (principal)

== ENCOUNTER 2024-12-04 08:40 | Outpatient (REF) | payer MEDICARE, SELFPAY ==
--- NOTE | ~2024-12-04 | XR_ITS ---
EXAMINATION: XR CHEST CLINICAL INFORMATION: J06.9 - Acute upper respiratory infection, unspecified COMPARISON: 09/28/2018. TECHNIQUE: 2 views of the chest were obtained. FINDINGS: The cardiac, hilar, and mediastinal contours are normal. Prior sternotomy and probable CABG. The lungs are mildly hyperaerated, however There is no pneumothorax or pleural effusion. There is no focal osseous or soft tissue abnormality. Degenerative changes in the spine. Generative changes in both shoulder joints. Sternal wires intact and non-migrated. XR/XR chest 2V IMPRESSION: 1. No active pulmonary disease. Hyperaerated lung parenchyma. 2. Sternotomy and surgical changes, probable CABG. Electronically signed by: Kanu Graham MD 12/04/2024 10:17 AM JESSICA GARCIA
--- OUTSIDE RECORDS SUMMARY | 2024-12-04 10:52 | XMS_ITS | Patient Health Record ---
Author Organization [facility] Address [address] [place] [id number] Care Team Providers Care Embedded Developer Name Role Phone Kacy Fonseca MD Primary Care Provider Timmy Quiroga Jr Unavailable ALLERGIES No Known Allergies REASON FOR REFERRAL No Information MEDICATIONS Medication SIG (Take, Route, Frequency, Duration) Notes Start Date End Date Status Clopidogrel Bisulfate 75 MG 1 tablet Ora lly Once a day for 30 day(s) Active Metoprolol Succinate ER 25 MG 1 tablet Orally Once a day for 30 day(s) Active MiraLax (colon prep) 17 GM/SCOOP mixed with Gatorade or Crystal Light Orally begin at 5:00 p.m. the day before the procedure for 1 day 09/16/2021 Active Vitamin D-3 125 MCG (5000 UT) as directed Orally Active IMMUNIZATIONS Vaccine Route Administration Date Status Comme nts Influenza Unknown 08/26/2021 Administered SOCIAL HISTORY Tobacco Use: Social History Observation Description Date Details (start date - stop date) Never Smoker NA - NA Sex Assigned At : Social History Observation Description Sex Assigned At Unknown Tobacco Use/Smoking Question Answer Notes Patient is a nonsmoker Alcohol Screen Question Answer Notes Did you have a drink contain ing alcohol in the past year? Yes How often did you have a dri nk containing alcohol in the past year? 2 to 4 times a month (2 points) How many drinks did you have on a typical day when you were drinking in the past year? 3 or 4 drinks (1 point) How often did you have 6 or more drinks on one occasion in the past year? Less than monthly (1 point) Points 4 Interpretation Positive PROBLEMS Problem Type ICD Code Onset Dates Problem Status W/U Status Risk SNOMED Code Notes Problem Encounter for current terminologist use of antiplatelet drug (Z79.02) Active confirmed 267012451863792 Problem Colon cancer screening (Z12.11) Active confirmed 397020551 PLAN OF TREATMENT Future Test Test Name Order Date COLONOSCOPY 09/16/2021 Insurance Providers Payer Name Payer Address Payer Phone Subscriber Number Group Number Insured Name Patient Relationship to Insured Coverage Start Date Coverage End Date [facility] [address] [place] [phone] [id number] DELANEY BARRIENTOS Self - patient is the insured MEDICAL (GENERAL) HISTORY Medical History History ICD Code Hypertension Elevated cholesterol Coronary artery disease with coronary artery bypass grafting x3 and stent placement. Peripheral arterial disease with intermittent claudication and stent placement Colon polyps, tubular adenoma 11/06, five -year followup overdue BPH Surgical History Surgery Date(Month/Year) right knee 2017 left hip 2014 CABG x3 1998 Multiple cardiac catheterizations with s tent placement Peripheral arterial stent placement Hospitalization History Reason Date(Month/Year)
--- OUTSIDE RECORDS SUMMARY | 2024-12-04 10:52 | XMS_ITS | Encounter Summary ---
Author Organization [facility] Address [address] [place] [address] Care Team Providers Care Veterinary Bacteriologist Name Role Phone Kacy Fonseca MD Primary Care Provider [phone] Lupe Campbell MD Unavailable Reason for Visit * Reason Onset Date Comments PRE OP MEDS 03/12/2019 Encounter Details Date Type Department Care Team (Late st Contact Info) Description 03/12/2019 Telephone [facility] [place] [address] Rena Mcconnell MD [address] [place] [address] PRE OP MEDS Social History Tobacco Use Types Packs/Day Years Used Date Smoking Tobacco: Never Smokeless Tobacco: Never Alcohol Use Standard Drinks/Week Comments Yes 5 (1 standard drink = 0.6 oz pur e alcohol) Sex and Gender Information Value Date Recorded Sex Assigned at Not on file Gender Identity Not on file Sexual Orientation Not on file documented as of this encounter Miscellaneous Notes * Telephone Encounter - Jenniffer Varma APRN - 03/13/2019 9:48 AM EDT Thank you * Telephone Encounter - Jay Amador LPN - 03/13/2019 8:37 AM EDT Spoke to patient by telephone and he received and showed understanding medication instructions as ordered. * Telephone Encounter - Jenniffer Varma APRN - 03/12/2019 4:25 PM EDT Please instruct patient to hold Plavix 75 mg 5 days prior surgery last dose Tuesday, March 14 Continue all other medications until surgery. Metoprolol succinate Toprol-XL 25 mg p.o. a.m. of surgery with sip of water Nothing to eat or drink after midnight Rcrx-mao-byhelvh Hibiclens or chlorhexidine soap. Shower night before and morning of surgery using antiseptic soap. * Telephone Encounter - Anna Bustamante - 03/12/2019 4:09 PM EDT PATIENT CALLED AND WANTS A CALL BACK RE: PRE OP MEDS AND ANTIBIOTICS? PLEASE CALL HIM AT [phone] documented in this encounter Plan of Treatment Not on file documented as of this encounter Visit Diagnoses Not on filedocumented in this encounter Care Teams Veterinary Bacteriologist Relationship Specialty Start Date End Date Po, Kacy Alcantara MD [address] [place] [address] [place] [address] PCP - General Internal Medicine 12/20/18 Lupe Campbell MD [address] [place] [address] [place] [address] Cardiovascular Disease 12/20/18 documented as of this encounter
--- OUTSIDE RECORDS SUMMARY | 2024-12-04 10:52 | XMS_ITS | Encounter Summary ---
Author Organization [facility] Address [address] [place] [address] Care Team Providers Care Water Plumber Name Role Phone Kacy Fonseca MD Primary Care Provider [phone] Lupe Campbell MD Unavailable Encounter Details Date Type Department Care Team (Late st Contact Info) Description 04/17/2019 12:30 PM EDT Hospital Encounter Rena Mcconnell MD [address] [address] Social History Tobacco Use Types Packs/Day Years Used Date Smoking Tobacco: Former Cigarettes Q uit: 1979 Smokeless Tobacco: Never Alcohol Use Standard Drinks/Week Comments Yes 2 (1 standard drink = 0.6 oz pur e alcohol) 1x/week Sex and Gender Information Value Date Recorded Sex Assigned at Not on file Gender Identity Not on file Sexual Orientation Not on file documented as of this encounter Plan of Treatment Not on file documented as of this encounter Visit Diagnoses Not on filedocumented in this encounter Care Teams Water Plumber Relationship Specialty Start Date End Date Kacy Fonseca MD [address] [place] [address] [place] [address] PCP - General Internal Medicine 12/20/18 Lupe Campbell MD [address] [place] [address] [place] [address] Cardiovascular Disease 12/20/18 documented as of this encounter
--- OUTSIDE RECORDS SUMMARY | 2024-12-04 10:52 | XMS_ITS | Encounter Summary ---
Author Organization [facility] Address [address] [place] [address] Care Team Providers Care Sports Statistician Name Role Phone Kacy Fonseca MD Primary Care Provider [phone] Lupe Campbell MD Unavailable Encounter Details Date Type Department Care Team (Late st Contact Info) Description 01/23/2019 Scanned Document [facility] [place] [address] Rena Mcconnell MD [address] [place] [address] Social History Tobacco Use Types Packs/Day Years [...] on filedocumented in this encounter Care Teams Sports Statistician Relationship Specialty Start Date End Date Kacy Fonseca MD [address] [place] [address] [place] [address] PCP - General Internal Medicine 12/20/18 Lupe Campbell MD [address] [place] [address] [place] [address] Cardiovascular Disease 12/20/18 documented as of this encounter
--- OUTSIDE RECORDS SUMMARY | 2024-12-04 10:52 | XMS_ITS | Clinical Summary ---
Author Organization [facility] Address [address] [place] [address] Care Team Providers Care Retail Salesperson Name Role Phone Kacy Fonseca MD Primary Care Provider [phone] Surgical History Surgery Date Site/Laterality Comments CORONARY ARTERY BYPASS GRAFT 10/1997 PROCEDURE: HISTORICAL CABG; COMMENT: x 3, Left radial to RCA, Right radial to LCX, BRITT to LAD TOTAL KNEE ARTHROPLASTY 03/28/2018 Right PROCEDURE: HISTORICAL TOTAL KNEE REPLACE; COMMENT: Dr Gardner OTHER SURGICAL HISTORY 08/14/2018 Left PROCEDURE: HISTORY OTHER; COMMENT: Femoral Endarterectomy, [facility] OTHER SURGICAL HISTORY 10/05/2018 PROCEDURE: UT REVJ TOTAL KNEE ARTHRP W/WO ALGRFT 1 COMPONENT; COMMENT: Poly liner exchange with partial Synovectomy HIP ARTHROPLASTY 02/11/2015 Left PROCEDURE: HISTORICAL HIP REPLACEMENT CORONARY STENT PLACEMENT 2016 PROCEDURE: STENT, CORONARY, SAIDA APPENDECTOMY PROCEDURE: HISTORICAL APPENDECTOMY CARPAL TUNNEL RELEASE Bilateral PROCEDURE: HISTORICAL CARPAL TUNNEL REL Medical History Medical History Date Comments Hyperlipidemia 01/13/2012 DX:Hyperlipidemi a Hypertension 01/13/2012 DX:Hypertension BPH (benign prostatic hyperplasia) 10/10/2018 DX:BPH (benign prostatic hyperplasia) Elevated fasting glucose 10/10/2018 DX:Elev ated fasting glucose Non-healing open wound of left groin 05/02/2014 DX:Non-healing open wound of left groin; COMMENT: 08/14/18 Femoral endarterectomy Infection and inflammatory r eaction due to internal right knee prosthesis, sequela 05/02/2014 DX:Infection and inflammator y reaction due to internal right knee prosthesis, sequela; COMMENT: Arthroscopic lavage x 2 (10/09/18, 10/03/18) & Poly liner exchange with partial synovectomy & irrigation (10/05/18) Total knee replacement status 10/10/2018 DX :Total knee replacement status; COMMENT: 03/28/18 Right Staphylococcus aureus bacteremia 10/10/2018 DX:Staphylococcus aureus bacteremia; COMMENT: 09/2018 Cardiac murmur 05/02/2014 DX:Cardiac murmu r PVD (peripheral vascular dis ease) ([facility]) 05/02/2014 DX:PVD (peripheral vascular disease) ([facility]) CAD (coronary artery disease) 01/13/2012 DX :CAD (coronary artery disease); COMMENT: 10/1997 CABG x 3, Left radial to RCA, Right radial to LCX, BRITT to LAD, 2017 Cardiac Stent Hip joint replacement status 10/10/2018 DX: Hip joint replacement status; COMMENT: 02/11/2015, Left Vocal cord paralysis 10/10/2018 DX:Vocal co rd paralysis; COMMENT: Followed by ENT Family History Medical History Relation Name Comments Stroke Father in his 40' s Coronary artery disease Mother in her 50's Relation Name Status Comments Father Mother Social History Tobacco Use Types Packs/Day Years Used Date Smoking Tobacco: Former Cigarettes Q uit: 10/24/1977 Alcohol Use Standard Drinks/Week Comments Yes 0 (1 standard drink = 0.6 oz pur e alcohol) Sex and Gender Information Value Date Recorded Sex Assigned at Not on file Legal Sex Male 8:45 PM EST Gender Identity Not on file Sexual Orientation Not on file Obstetrics History Plan of Treatment Health Maintenance Due Date Last Done Comments DTaP,Tdap,and Td Vaccines (1 - Tdap) 02[birth year]28/1957 Pneumococcal Vaccine: 50+ Ye ars (1 of 1 - PCV) 02/28/1998 Zoster Vaccines (1 of 2) 02/28/1998 RSV Immunization Patients 60 + Years Old (1 - 1-dose 75+ series) 02/28/2023 Cholesterol Screening (Lipid Panel) 11/22/2023 Depression Screening 11/22/2023 Falls Risk Assessment 11/22/2023 Hepatitis C Screening 11/22/2023 Hypertension/CHF/CAD Annual BMP Blood Test 11/22/2023 Social Influencers of Health Screening 11/22/2023 COVID-19 Vaccine ( - 2023-2 5 season) 2024 Influenza Vaccine (#1) 2024 HIB Vaccines Aged Out No longer eligi ble based on patient's age to complete this topic HPV Vaccines Aged Out No longer eligi ble based on patient's age to complete this topic Hepatitis A Vaccines Aged Out No long er eligible based on patient's age to complete this topic Hepatitis B Vaccines Aged Out No long er eligible based on patient's age to complete this topic IPV Vaccines Aged Out No longer eligi ble based on patient's age to complete this topic MMR Vaccines Aged Out No longer eligi ble based on patient's age to complete this topic Meningococcal ACWY Vaccine Aged Out N o longer eligible based on patient's age to complete this topic Meningococcal B Vacine Aged Out No lo nger eligible based on patient's age to complete this topic RSV Immunization Patients Un rupa 20 months Aged Out No longer eligible b ased on patient's age to complete this topic Varicella Vaccines Aged Out No longer eligible based on patient's age to complete this topic Care Teams Retail Salesperson Relationship Specialty Start Date End Date Kacy Fonseca MD [address] [place] [address] [address] [facility] [place] [address] PCP - General 08/07/09
--- OUTSIDE RECORDS SUMMARY | 2024-12-04 10:52 | XMS_ITS | Clinical Summary ---
Author Organization [facility] Address [address] [place] [address] Care Team Providers Care Prepared Foods Associate Name Role Phone Kacy Fonseca MD Primary Care Provider [phone] Lupe Campbell MD Unavailable Allergies No known active allergies Medications Medication Sig Dispensed Refills Start Date End Date Status clopidogrel (PLAVIX) 75 MG tablet Take 75 mg by mouth daily. Active metoPROLOL SUCCINATE (TOPROL-XL) 25 MG 24 hr tablet Take 25 mg by mouth daily. Active aspirin (BUFFERIN LOW DOSE) 81 MG tablet Take 81 mg by mouth daily. Active tamsulosin (FLOMAX) 0.4 MG capsule Take 0.4 mg by mouth daily. Active ferrous sulfate 325 (65 FE) MG tablet Take 325 mg by mouth daily. Take 2 hours before or 4 hours after acid reducers. Active clotrimazole-betameth asone (LOTRISONE) creamIndications:Irri tant contact dermatitis due to other agents,Group B streptococcal infection Apply topically 2 (two) times a day. On skin surrounding the wound 45 g 04/25/2019 Active rosuvastatin (CRESTOR) 20 MG tablet 05/02/2019 Active Active Problems Problem Noted Date Diagnosed Date Complication of surgical procedure 04/17/2019 PVD (peripheral vascular disease) 03/20/2019 Wound infection after surgery 03/20/2019 Family History Medical History Relation Name Comments No Known Problems Father No Known Problems Mother Relation Name Status Comments Father Mother Social [...] on file Sexual Orientation Not on file Last Filed Vital Signs Vital Sign Reading Time Taken Comments Blood Pressure 132/80 06/01/2019 8:37 AM EDT Pulse 72 06/01/2019 8:37 AM EDT Temperature 35.7 ??C (96.2 ??F) 06/01/2019 8:37 AM ED T Respiratory Rate 15 06/01/2019 8:37 AM EDT Oxygen Saturation 98% 06/01/2019 8:37 AM EDT Inhaled Oxygen Concentration - - Weight 104 kg (230 lb) 06/01/2019 8:37 AM EDT Height 182.9 cm (6') 06/01/2019 8:37 AM EDT Body Mass Index 31.19 06/01/2019 8:37 AM EDT Plan of Treatment Health Maintenance Due Date Last Done Comments Hepatitis C Virus Screening 1950 DTaP/Tdap/Td Vaccines (1 - Tdap) 02/28/1967 Pneumococcal Vaccines 50+ (1 of 1 - PCV) 02/28/1998 Zoster (Shingles) Vaccine (1 of 2) 02/28/1998 RSV Vaccine 60 years and old er and Patients (1 - 1-dose 75+ series) 02/28/2023 Influenza Vaccine 05/24/2024 COVID-19 Vaccine ( - 2023-2 5 season) 2024 Hepatitis B Vaccines Aged Out No long er eligible based on patient's age to complete this topic Advance Directives * Full Code (Latest Code Status on File) Date Activated Date Inactivated Comments 04/17/2019 7:08 PM * Full Code Date Activated Date Inactivated Comments 04/17/2019 3:59 PM 04/17/2019 7:08 PM * Full Code Date Activated Date Inactivated Comments 03/20/2019 9:02 PM 04/17/2019 3:46 PM * Full Code Date Activated Date Inactivated Comments 03/20/2019 8:27 PM 03/20/2019 9:02 PM * Full Code Date Activated Date Inactivated Comments 03/20/2019 8:34 AM 03/20/2019 8:27 PM Care Teams Prepared Foods Associate Relationship Specialty Start Date End Date Kacy Fonseca MD [address] [place] [address] [place] [address] PCP - General Internal Medicine 12/20/18 Lupe Campbell MD [address] [place] [address] [place] [address] Cardiovascular Disease 12/20/18
[2024-12-04 14:11] LABS: Influenza A PCR POSITIVE (Negative); Influenza B PCR NEGATIVE (Negative); Resp Syncy Virus RNA Qual PCR NEGATIVE (Negative); SARS COV2 PCR INHOUSE NEGATIVE (Negative)
== END 2024-12-04 08:41 | disposition home or self-care (01) ==
LOC: HO.HMGCX 08:40
PROVIDERS: PCP Internal Medicine; Visit Provider Physician Assistant
DX: J06.9 Acute upper respiratory infection, unspecified (principal)
CPT/HCPCS: 0241U; 71046; 99212

== ENCOUNTER → 2024-12-04 09:50 | Outpatient (BNV) | payer MEDICARE, SELFPAY | PROVIDERS: PCP Internal Medicine; Visit Provider Radiology Diagnostic Radiology | DX: J06.9 Acute upper respiratory infection, unspecified (principal) | CPT/HCPCS: 71046 ==

== ENCOUNTER 2024-12-31 10:55 | Outpatient (AMB) | payer MEDICARE, SELFPAY ==
[2024-12-31 11:05] VITALS: BP 124/62; PULSE 61; O2SAT 98; BMI 31.5
--- NOTE | 2024-12-31 11:05 | A.OFFPC_ITS ---
Vital Signs 12/31/24 11:05 Height 5 ft 11 in Weight 226 lb BMI 31.5 BP 124/62 Blood Pressure Location Lt brachial Position Sitting Pulse 61 Pulse Source Pulse Oximeter Pulse Oximetry (%) 98 Oxygen Delivery Method Room Air Intake Visit Reasons: f/u IGT will need A1c Allergies cilostazol Adverse Reaction (Intermediate, Unverified 12/31/24 11:14) Headache Medication List - Last Reconciled 12/31/24 by Kacy Fonseca MD clopidogrel 75 mg PO DAILY cyclobenzaprine 10 mg PO BEDTIME PRN ezetimibe (Zetia) 10 mg PO DAILY metoprolol succinate ER 25 mg PO DAILY rosuvastatin 40 mg PO DAILY Tobacco use date assessed: 12/31/24 Fall risk assessment: No Falls in past year Last assessed Fall Risk: 12/31/24 Dental Screening Dental Screen Date: 12/31/24 Did you have a dental visit in the last 12 months?: Yes Did you have a dental problem in the last 6 months where you did not have access to dental care?: No Was dental information given to patient?: Patient has dentist [facility] Medical History Blind right eye Peripheral vascular disease Hypercholesterolemia Erectile dysfunction BPH (benign prostatic hyperplasia) Peripheral arterial disease Dilatation of aorta Pulmonary nodule Osteoarthritis of left knee Vitamin D deficiency Impaired fasting glucose Obesity (BMI 30-39.9) History of renal calculi Hypertension Vocal cord polyp Coronary artery disease Carpal tunnel syndrome Surgical History S/P right knee arthroscopy History of endarterectomy Status post endovenous radiofrequency ablation of saphenous vein History of placement of stent in LAD coronary artery History of carpal tunnel release History of surgery History of vocal cord polypectomy History of arthroscopy of left knee Coronary artery disease involving coronary bypass graft Hx of total hip arthroplasty History of arthroscopy of right knee History of appendectomy Family History Father CVD (cardiovascular disease) Stroke Brain aneurysm Mother CVD (cardiovascular disease) Hypertension Sister Leukemia Brother Lung cancer Social History Housing: House Patient Tobacco Use Status: Former Tobacco user Tobacco use type: Cigarette e-Cigarette/Vaping Use: Never Used Second Hand Smoke Exposure: No service: No 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 1. Little interest or pleasure in doing things: not at all 2. Feeling down, depressed, or hopeless: not at all 3. Trouble falling or staying asleep, or sleeping too much: not at all 4. Feeling tired or having little energy: not at all 5. Poor appetite or overeating: not at all 6. Feeling bad about yourself - or that you are a failure or have let yourself or your family down: not at all 7. Trouble concentrating on things, such as reading the newspaper or watching television: not at all 8. Moving or speaking so slowly that other people could have noticed. Or the opposite - being so fidgety or restless that you have been moving around a lot more than usual: not at all 9. Thoughts that you would be better off or of hurting yourself in some way: not at all Total score: 0 Depression Screening Interpretation: Negative Depression Screening Done: Yes 15413 - PHQ-9 Billing: Yes Source: Developed by Drs. Yonas Britt, Therese Harris, Freddy Antonio and colleagues, with an educational humble from [employer]. Thrive Questionnaire Date Thrive assessed: 12/31/24 AUDIT C Alcohol Use Questionnaire (AUDIT-C) 1. How often do you have a drink containing alcohol?: Monthly or less 2. How many drinks containing alcohol do you have on a typical day when you are drinking?: 1 or 2 3. How often do you have six or more drinks on one occasion?: Less than monthly Total Score: 2 Score Reviewed/Action Taken: Yes ROMAN-7 AMB Questionnaire ROMAN-7 Date ROMAN - 7 assessed: 12/31/24 Feeling nervous, anxious, or on edge: 0 = Not at all Not being able to stop or control worryin = Not at all Worrying too much about different things: 0 = Not at all Trouble relaxin = Not at all Being so restless that it is hard to sit still: 0 = Not at all Becoming easily annoyed or irritable: 0 = Not at all Feeling afraid as if something awful might happen: 0 = Not at all Total ROMAN-7 score (0-4 normal; 5-9 mild; 10-14 moderate; 15-21 severe): 0 Source: Developed by Drs. Yonas Britt, Therese Harris, Freddy Antonio and colleagues, with an educational humble from [employer]. ROMAN-7 Assessment Billing ROMNA-7 Assessment Tool: ROMAN-7 Assessment 79340 Physical exam (Primary Care) Vital Signs: Last Vital Signs Pulse 61 12/31/24 11:05 BP 124/62 12/31/24 11:05 Pulse Ox 98 12/31/24 11:05 Oxygen Delivery Method Room Air 12/31/24 11:05 BMI result Body Mass Index 31.5 Tobacco/Smoking Status: Tobacco use Status Tobacco use date assessed 12/31/24 12/31/24 11:08 Patient Tobacco Use Status Former Tobacco user 12/31/24 11:08 Tobacco use type Cigarette 12/31/24 11:08 e-Cigarette/Vaping Use Never Used 12/31/24 11:08 PHQ-9: PHQ-9 Score PHQ-9: Total score 0 12/31/24 11:24 Depression Screening Interpretation: Negative Thrive Assessment: Date of Thrive Assessment Date Thrive assessed 12/31/24 12/31/24 11:08 Const General: alert; No acute distress Eyes Conjunctivae: conjunctivae normal Resp Auscultation: clear to auscultation bilaterally Cardio Rate: regular rate Rhythm: regular rhythm GI Inspection: Yes normal to inspection Extrem General: Yes normal to inspection and No edema Results AMB Hemoglobin A1c AMB Hemoglobin A1c 6.0 % Last Edit by Shelbie Clarke CMA on 12/31/24 11 :22 Results Reviewed Results Reviewed: Laboratory Last Values Hgb A1c (Clinic) 6.0 % (4.0-6.0) 12/31/24 11:08 Coding Level of Care Code Est Pt Level 4 (53846) Complex EM visit Add On G2211 Diagnoses Aortic stenosis I35.0 Obesity (BMI 30-39.9) E66.9 Coronary artery disease involving [place] coronary artery of [place] heart without angina pectoris I25.10 Associated angina: without angina Coronary Disease-Associated Artery/Lesion type: [place] artery [place] vs. transplanted heart: [place] heart Essential hypertension I10 Hypertension type: essential hypertension Impaired fasting glucose R73.01 Peripheral arterial disease I73.9 Benign prostatic hyperplasia with urinary frequency N40.1; R35.0 Lower urinary tract symptom detail: urinary frequency Lower urinary tract symptom presence: symptoms present Hypercholesterolemia E78.00 Additional Codes ROMAN-7 Assessment Billing - ROMAN-7 Assessment Tool: ROMAN-7 Assessment 28129 ([id number]) PHQ-9 - 83605 - PHQ-9 Billing: Yes ([id number]) Assessment & Plan Assessment & Plan (1) Aortic stenosis: Comment: Echocardiogram from 07/16/2024 showing: Normal LV size with mild concentric hypertrophy Normal LV systolic function (EF 60-65%) Indeterminate diastolic function Normal RV size with normal RV systolic function Moderately dilated left atrium sclerae degenerative valve disease with combined mild aortic stenosis and regurgitation Code(s): I35.0 - Nonrheumatic aortic (valve) stenosis Category: Medical Plan: Patient has been seen Cardiology last echo was June 2024 and repeat echo in 2 years 07/13/2026 (2) Obesity (BMI 30-39.9): Code(s): E66.9 - Obesity, unspecified Category: Medical Plan: Diet and exercise (3) Coronary artery disease: Comment: 1997 stent placement December 1999 Code(s): I25.10 - Atherosclerotic heart disease of [place] coronary artery without angina pectoris Category: Medical Qualifiers: Associated angina: without angina Coronary Disease-Associated Artery/Lesion type: [place] artery [place] vs. transplanted heart: [place] heart Qualified Code(s): I25.10 - Atherosclerotic heart disease of [place] coronary artery without angina pectoris Plan: Control the cholesterol, weight, blood pressure on clopidogrel (4) Hypertension: Code(s): I10 - Essential (primary) hypertension Category: Medical Qualifiers: Hypertension type: essential hypertension Qualified Code(s): I10 - Essential (primary) hypertension Plan: Continue with blood pressure medication. Decrease salt intake and exercise taking metoprolol 25 mg once a day (5) Impaired fasting glucose: Code(s): R73.01 - Impaired fasting glucose Category: Medical Plan: Decrease the amount of carbohydrate intake, pasta, bread, rice and potatoes are all sugar and that is aside from all the sweet stuff, remember that fruits are good but they are Sweet also. (6) Peripheral arterial disease: Comment: EDISON August 2021 right posterior tibial artery and left posterior tibial artery significant disease R Femoral endarterectomy Dr. Lancaster July 2022 Code(s): I73.9 - Peripheral vascular disease, unspecified Category: Medical Plan: When sitting down elevate the legs, exercise, and support stockings patient is being followed up by the vascular surgeon patient is on clopidogrel (7) BPH (benign prostatic hyperplasia): Code(s): N40.0 - Benign prostatic hyperplasia without lower urinary tract symptoms Category: Medical Qualifiers: Lower urinary tract symptom detail: urinary frequency Lower urinary tract symptom presence: symptoms present Qualified Code(s): N40.1 - Benign prostatic hyperplasia with lower urinary tract symptoms; R35.0 - Frequency of micturition Plan: Stable (8) Hypercholesterolemia: Comment: May 2024 LDL 56 Code(s): E78.00 - Pure hypercholesterolemia, unspecified Category: Medical Plan: Avoid fried foods, chicken skin, eggs, butter margarine, pastries and meat. Be it pork or beef they have a lot of cholesterol LDL goal of less than 70 and triglyceride of less than 150 on Zetia and rosuvastatin with May blood work LDL of 56 Plan History of Present Illness The patient is a 74-year-old male presenting for a follow-up to manage multiple chronic conditions including hypertension, coronary artery disease, benign prostatic hyperplasia, and hypercholesterolemia. He has impaired glucose tolerance with recent A1c readings rising, indicating worsening blood sugar control. The patient follows a treatment regimen including clopidogrel for coronary artery disease and medications for blood pressure and cholesterol management. Recent lab results have shown stable LDL levels and blood pressure control. He has had a recent history of respiratory conditions, diagnosed with bronchitis and Influenza A within recent months. A chest X-ray returned showing no active pulmonary disease. The patient has experienced episodes of shortness of breath and headaches associated with these illnesses. His cardiovascular health is monitored with known mild aortic valve stenosis and carotid stenosis, doing follow-ups on these conditions. There is noted elevation in liver function tests that continue to be monitored since August. The patient does report maintaining a consistent medication regimen and has actively modified his lifestyle focusing on exercise and dietary measures. Health Maintenance - Blood glucose and A1c levels monitored with a goal to maintain hemoglobin A1c under 6.5%. - Cholesterol management with an LDL goal of less than 70 mg/dL, achieved through medication. - Regular cardiovascular follow-up, next echocardiogram scheduled for June 2026. - Blood pressure targeted control via metoprolol. - Adequate hydration and dietary modifications discussed for weight management and improved blood sugar levels. 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 - Participates in regular social outings weekly with friends. - Reported reduced intake of sweets and sugars, increasing activity through more walking, and managing diet post-diagnosis of impaired glucose tolerance. Review of Systems - Respiratory: Reports shortness of breath and persistent coughing with wheezing post-Influenza A recovery. - Neurological: Reports headaches during the influenza episode. - Endocrine: Reports increased blood sugar levels with an A1c of 6.1% recorded in the last test. - Cardiovascular: Reports manageable blood pressure levels; compliant with clopidogrel for coronary artery disease. Physical Exam - Respiratory- During examination, patient exhibits clear breath sounds post- cough. - No explicit physical measurement data provided. Results - Labs: LDL of 56 mg/dL as of May 2024, Hemoglobin A1c of 6.1% in August 2024. - Tests: Chest X-ray in November showed no active pulmonary disease. Plan The patient's management includes ongoing treatment for hypertension, coronary artery disease, and impaired glucose tolerance. Continuation of clopidogrel, rosuvastatin, and ezetimibe is recommended to manage cardiovascular risks and cholesterol levels. Monitoring of blood glucose levels and encouraging lifestyle modifications, including a balanced diet and regular exercise, are advised to manage and stabilize glucose tolerance. Regular monitoring of liver function tests and vigilance in tracking medication supplies are important to ensure effective treatment. For respiratory health, emphasis is placed on hydration and symptom control with possible use of Mucinex as needed. Outcomes of lung and cardio-health are to be evaluated periodically with scheduled diagnostics. Patient was informed and verbally consented to the use of an ambient scribe for clinic note documentation during this visit. Discussion Notes In this consultation, we discussed the patient's management plans for ongoing chronic conditions, focusing on blood pressure, cholesterol levels, and glucose management, highlighting the stability of current measures. The patient exhibits satisfactory compliance with cardiovascular medication, and blood glucose monitoring was emphasized given the rise in A1c levels. We discussed the necessity for continuous lifestyle modifications as a del cid component in managing glucose tolerance. The patient verified understanding of self-monitoring techniques and was counseled on maintaining current regimen to optimize health outcomes. We reviewed the need for ongoing pulmonary monitoring post-acute respiratory events and provided assurance regarding observed elevated liver function tests, indicating further monitoring. Recommendations were provided for adequate fluid intake to assist in respiratory health, and the patient agreed to maintain vigilance concerning medication refills. Follow-up care should involve regular monitoring, with the next echocardiogram scheduled for 2025, and we emphasized routine reviews to maintain health stability. Patient Instructions - Continue all prescribed medications precisely as instructed. - Monitor blood sugar levels regularly, particularly before meals, and report abnormalities. - Maintain a consistent, balanced diet with low sugar intake and increased physical activity. - Hydrate well, aiming for clear hydration to assist with mucus clearance. - Utilize Mucinex for symptom relief if needed. - Adhere to regular follow-up schedules, including future echo and blood tests. - Report any notable changes in symptoms or new concerns as soon as possible. - Ensure responsible management of medication supplies to avoid premature refills. Orders: Orders AMB Hemoglobin A1c Today Z13.9 - Encounter for screening, unspecified Medications: New blood-glucose meter (FreeStyle Lite Meter kit) As directed 1 ea 0RF E11.65 - Type 2 diabetes mellitus with hyperglycemia, R73.01 - Impaired fasting glucose blood sugar diagnostic (FreeStyle Lite Strips) As directed check the BS QD 100 ea 3RF E11.65 - Type 2 diabetes mellitus with hyperglycemia, R73.01 - Impaired fasting glucose lancets (FreeStyle Lancets) As directed check BS QD 100 ea 3RF E11.65 - Type 2 diabetes mellitus with hyperglycemia, R73.01 - Impaired fasting glucose Refilled cyclobenzaprine 10 mg PO BEDTIME PRN 30 tabs 1RF muscle spasm M79.672 - Pain in left foot
--- OUTSIDE RECORDS SUMMARY | 2024-12-31 12:23 | XMS_ITS | Encounter Summary ---
Author Organization [facility] Address [address] [place] [address] Care Team Providers Care Desktop Support Technician Name Role Phone Kacy Fonseca MD Primary Care Provider [phone] Lupe Campbell MD Unavailable Encounter Details Date Type Department Care Team (Late st Contact Info) Description 01/23/2019 Scanned Document [facility] [place] [address] Rena Mcconnell MD [address] [place] [address] Social History Tobacco Use Types Packs/Day Years [...] on filedocumented in this encounter Care Teams Desktop Support Technician Relationship Specialty Start Date End Date Kacy Fonseca MD [address] [place] [address] [place] [address] PCP - General Internal Medicine 12/20/18 Lupe Campbell MD [address] [place] [address] [place] [address] Cardiovascular Disease 12/20/18 documented as of this encounter
--- OUTSIDE RECORDS SUMMARY | 2024-12-31 12:23 | XMS_ITS | Encounter Summary ---
Author Organization [facility] Address [address] [place] [address] Care Team Providers Care Service Associate Name Role Phone Kacy Fonseca MD Primary Care Provider [phone] Lupe Campbell MD Unavailable Reason for Visit * Reason Onset Date Comments PRE OP MEDS 03/12/2019 Encounter Details Date Type Department Care Team (Late st Contact Info) Description 03/12/2019 Telephone [facility] [place] [address] Rena Mcconnell MD [address] [place] [address] PRE OP MEDS Social History Tobacco Use [...] Nothing to eat or drink after midnight [id number] Hibiclens or chlorhexidine soap. Shower night before and morning of surgery using antiseptic soap. * Telephone Encounter - Anna Bustamante - 03/12/2019 4:09 PM EDT PATIENT CALLED AND WANTS A CALL BACK RE: PRE OP MEDS AND ANTIBIOTICS? PLEASE CALL HIM AT [phone] documented in this encounter Plan of Treatment Not on file documented as of this encounter Visit Diagnoses Not on filedocumented in this encounter Care Teams Service Associate Relationship Specialty Start Date End Date Po, Kacy Alcantara MD [address] [place] [address] [place] [address] PCP - General Internal Medicine 12/20/18 Lupe Campbell MD [address] [place] [address] [place] [address] Cardiovascular Disease 12/20/18 documented as of this encounter
--- OUTSIDE RECORDS SUMMARY | 2024-12-31 12:23 | XMS_ITS | Clinical Summary ---
Author Organization [facility] Address [address] [place] [address] Care Team Providers Care Senior Director Finance Name Role Phone Kacy Fonseca MD Primary Care Provider [phone] Lupe Campbell MD Unavailable Allergies No known [...] 8:34 AM 03/20/2019 8:27 PM Care Teams Senior Director Finance Relationship Specialty Start Date End Date Kacy Fonseca MD [address] [place] [address] [place] [address] PCP - General Internal Medicine 12/20/18 Lupe Campbell MD [address] [place] [address] [place] [address] Cardiovascular Disease 12/20/18
--- OUTSIDE RECORDS SUMMARY | 2024-12-31 12:23 | XMS_ITS | Encounter Summary ---
Author Organization [facility] Address [address] [place] [address] Care Team Providers Care Loan Assistant Name Role Phone Kacy Fonseca MD Primary Care Provider [phone] Lupe Campbell MD Unavailable Encounter Details Date Type Department Care Team (Late st Contact Info) Description 04/17/2019 12:30 PM EDT Hospital Encounter Rena Mcconnell MD [address] [address] Social History Tobacco Use Types Packs/Day Years [...] on filedocumented in this encounter Care Teams Loan Assistant Relationship Specialty Start Date End Date Kacy Fonseca MD [address] [place] [address] [place] [address] PCP - General Internal Medicine 12/20/18 Lupe Campbell MD [address] [place] [address] [place] [address] Cardiovascular Disease 12/20/18 documented as of this encounter
--- OUTSIDE RECORDS SUMMARY | 2024-12-31 12:23 | XMS_ITS | Patient Health Record ---
Author Organization [facility] Address [address] [place] [id number] Care Team Providers Care Probation Worker Name Role Phone Kacy Fonseca MD Primary Care Provider Timmy Quiroga Jr Unavailable [phone] Allergies No Known Allergies Reason For Referral No Information Medications Medication SIG (Take, Route, Frequency, Duration) Notes [...] MCG (5000 UT) as directed Orally Active Immunizations Vaccine Route Administration Date Status Comme nts Influenza Unknown 08/26/2021 Administered Social History Tobacco Use: Social History Observation Description Date Details (start date - stop date) Never Smoker NA - NA Tobacco Use/Smoking Question Answer Notes Patient is [...] monthly (1 point) Points 4 Interpretation Positive Problems Problem Type SNOMED Code ICD Code Onset Dates Problem Status W/U Status Risk Notes Problem [id number] Colon cancer screening (Z12.11) Active confirmed Problem [id number] 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 Peripheral arterial disease with intermittent claudication and stent placement Colon polyps, tubular adenoma 11/06, five -year followup overdue BPH Surgical History Surgery Date(Month/Year) right knee 2017 left hip 2015 CABG x3 1998 Multiple cardiac catheterizations with s tent placement Peripheral arterial stent placement Hospitalization History Reason Date(Month/Year)
--- OUTSIDE RECORDS SUMMARY | 2024-12-31 12:23 | XMS_ITS | Clinical Summary ---
Author Organization [facility] Address [address] [place] [address] Care Team Providers Care Glue Jointer Operator Name Role Phone Kacy Fonseca MD Primary Care Provider [phone] Surgical History Surgery Date Site/Laterality Comments CORONARY ARTERY BYPASS GRAFT 10/1997 PROCEDURE: HISTORICAL CABG; COMMENT: x 3, Left radial to RCA, Right radial to LCX, BRITT to LAD TOTAL KNEE ARTHROPLASTY 03/28/2018 Right PROCEDURE: HISTORICAL TOTAL KNEE REPLACE; COMMENT: Dr Gardner OTHER SURGICAL HISTORY 08/14/2018 Left PROCEDURE: HISTORY OTHER; COMMENT: Femoral Endarterectomy, Dr Mary Lou Mckeon [facility] OTHER SURGICAL HISTORY 10/05/2018 PROCEDURE: OK REVJ TOTAL KNEE ARTHRP W/WO ALGRFT 1 [...] murmu r PVD (peripheral vascular dis ease) ([facility]) 05/02/2014 DX:PVD (peripheral vascular disease) ([facility]) CAD (coronary artery disease) 01/13/2012 DX [...] Comments DTaP,Tdap,and Td Vaccines (1 - Tdap) 02/28/1967 Pneumococcal Vaccine: 50+ Ye ars (1 of [...] age to complete this topic Care Teams Glue Jointer Operator Relationship Specialty Start Date End Date Kacy Fonseca MD [address] [place] [address] [address] [facility] [place] [address] PCP - General 08/07/09
== END 2024-12-31 16:31 | disposition home or self-care (01) ==
PROVIDERS: PCP Internal Medicine; Visit Provider Internal Medicine
DX: I35.0 Nonrheumatic aortic (valve) stenosis (principal); I73.9 Peripheral vascular disease, unspecified; E66.9 Obesity, unspecified; Z68.31 Body mass index [BMI] 31.0-31.9, adult; I25.10 Atherosclerotic heart disease of native coronary artery without angina pectoris; I10 Essential (primary) hypertension; R73.01 Impaired fasting glucose; N40.1 Benign prostatic hyperplasia with lower urinary tract symptoms; R35.0 Frequency of micturition; E78.00 Pure hypercholesterolemia, unspecified

== ENCOUNTER → 2024-12-31 10:55 | Outpatient (BNVA) | payer MEDICARE, SELFPAY | PROVIDERS: PCP Internal Medicine; Visit Provider Internal Medicine | DX: I35.0 Nonrheumatic aortic (valve) stenosis (principal); E66.9 Obesity, unspecified; I25.10 Atherosclerotic heart disease of native coronary artery without angina pectoris; I10 Essential (primary) hypertension; I73.9 Peripheral vascular disease, unspecified; R73.01 Impaired fasting glucose | CPT/HCPCS: 83036; 96127; 99212 ==

== ENCOUNTER 2025-03-08 08:06 | Outpatient (AMB) | payer OTHER, MEDICARE, SELFPAY ==
--- OUTSIDE RECORDS SUMMARY | 2025-03-08 08:12 | XMS_ITS | Patient Health Record ---
Author Organization [facility] Address [address] [place] [id number] Care Team Providers Care Display Department Manager Name Role Phone Kacy Fonseca MD Primary Care Provider Timmy Quiroga Jr Unavailable Allergies No Known Allergies Reason For Referral [...] Problem Status W/U Status Risk Notes Problem [id number] Colon cancer screening (Z12.11) Active confirmed Problem [id number] Encounter for current assisted use of antiplatelet drug (Z79.02) Active confirmed Plan Of Treatment Future Test Test Name Order Date COLONOSCOPY 09/16/2021 Insurance Providers Payer Name Payer Address Payer Phone Subscriber Number Group Number Insured Name Patient Relationship to Insured Coverage Start Date Coverage End Date [facility] [id number] [place] [id number] DELANEY BARRIENTOS Self - patient is the [...]
--- OUTSIDE RECORDS SUMMARY | 2025-03-08 08:12 | XMS_ITS | Encounter Summary ---
Author Organization [facility] Address [address] [place] [address] Care Team Providers Care Shotblast Operator Name Role Phone Kacy Fonseca MD Primary Care Provider [phone] Lupe Campbell MD Unavailable Encounter Details Date Type Department Care Team (Late st Contact Info) Description 01/23/2019 Scanned Document [facility] [place] [address] Rena Mcconnell MD [address] [place] [address] Social History Tobacco Use Types Packs/Day Years Used Date Smoking Tobacco: Never Smokeless Tobacco: Never Alcohol Use Standard Drinks/Week Comments Yes 5 (1 standard drink = 0.6 oz pur e alcohol) Sex and Gender Information Value Date Recorded Sex Assigned at Not on file Legal Sex Male 6:38 PM EST Gender Identity Not on file Sexual Orientation Not on file documented as of this encounter Plan of Treatment Not on file documented as of this encounter Visit Diagnoses Not on filedocumented in this encounter Care Teams Shotblast Operator Relationship Specialty Start Date End Date Kacy Fonseca MD [address] [place] [address] PCP - General Internal Medicine 12/20/18 Lupe Campbell MD [address] [place] [address] [place] [address] Cardiovascular Disease 12/20/18 documented as of this encounter
--- OUTSIDE RECORDS SUMMARY | 2025-03-08 08:12 | XMS_ITS | Encounter Summary ---
Author Organization [facility] Address [address] [place] [address] Care Team Providers Care Net Sql Developer Name Role Phone Kacy Fonseca MD Primary Care Provider [phone] Lupe Campbell MD Unavailable Encounter Details Date Type Department Care Team (Late st Contact Info) Description 04/17/2019 12:30 PM EDT Hospital Encounter Rena Mcconnell MD [address] [address] Social History Tobacco Use Types Packs/Day Years [...] on filedocumented in this encounter Care Teams Net Sql Developer Relationship Specialty Start Date End Date Kacy Fonseca MD [address] [place] [address] [place] [address] PCP - General Internal Medicine 12/20/18 Lupe Campbell MD [address] [place] [address] [place] [address] Cardiovascular Disease 12/20/18 documented as of this encounter
--- OUTSIDE RECORDS SUMMARY | 2025-03-08 08:12 | XMS_ITS | Encounter Summary ---
Author Organization [facility] Address [address] [place] [address] Care Team Providers Care Medical Geneticist Name Role Phone Kacy Fonseca MD Primary Care Provider [phone] Lupe Campbell MD Unavailable Reason for Visit * Reason Onset Date Comments PRE OP MEDS 03/12/2019 Encounter Details Date Type Department Care Team (Late st Contact Info) Description 03/12/[address] [facility] [place] [address] Rena Mcconnell MD [address] [place] [address] PRE OP MEDS Social History Tobacco Use [...] as ordered. * Telephone Encounter - Jenniffer Vamra APRN - 03/12/2019 4:25 PM EDT Please instruct patient to hold Plavix 75 mg 5 days prior surgery last dose Tuesday, March 14 Continue all other medications until surgery. Metoprolol succinate Toprol-XL 25 mg p.o. a.m. of surgery with sip of water Nothing to eat or drink after midnight Ayqd-joe-bejislt Hibiclens or chlorhexidine soap. Shower night before and morning of surgery using antiseptic soap. * Telephone Encounter - Anna Bustamante - 03/12/2019 4:09 PM EDT PATIENT CALLED AND WANTS A CALL BACK RE: PRE OP MEDS AND ANTIBIOTICS? PLEASE CALL HIM AT [phone] documented in this encounter Plan of Treatment Not on file documented as of this encounter Visit Diagnoses Not on filedocumented in this encounter Care Teams Medical Geneticist Relationship Specialty Start Date End Date Raymundo, Kacy Alcantara MD [address] [place] [address] [place] [address] PCP - General Internal Medicine 12/20/18 Lupe Campbell MD [address] [place] [address] [place] [address] Cardiovascular Disease 12/20/18 documented as of this encounter
--- OUTSIDE RECORDS SUMMARY | 2025-03-08 08:12 | XMS_ITS | Clinical Summary ---
Author Organization [facility] Address [address] [place] [address] Care Team Providers Care Bin Operator Name Role Phone Kacy Fonseca MD Primary Care Provider [phone] Lupe Campbell MD Unavailable Allergies No known active allergies Medications clopidogrel (PLAVIX) 75 MG tablet Take 75 [...] or 4 hours after acid reducers. Active clotrimazole-beta methasone (LOTRISONE) creamIndications: Irritant contact dermatitis due to other agents,Group B streptococcal infection Apply topically 2 (two) times a day. On skin surrounding the wound 45 g 9 Active rosuvastatin (CRESTOR) 20 MG tablet 9 Active Active Problems Problem Noted Date Diagnosed [...] Patients (1 - 1-dose 75+ series) 02/28/2023 COVID-19 Vaccine ( - 2023-2 5 season) 2024 Influenza Vaccine 05/24/2025 Hepatitis B Vaccines Aged Out No long er eligible based on patient's age to complete this topic Insurance [facility] MEDICARE Advance Directives * Full Code (Latest Code [...] 8:34 AM 03/20/2019 8:27 PM Care Teams Bin Operator Relationship Specialty Start Date End Date Kacy Fonseca MD [address] [place] [address] [place] [address] PCP - General Internal Medicine 12/20/18 Lupe Campbell MD [address] [place] [address] [place] [address] Cardiovascular Disease 12/20/18
--- OUTSIDE RECORDS SUMMARY | 2025-03-08 08:12 | XMS_ITS | Clinical Summary ---
Author Organization [facility] Address [address] [place] [address] Care Team Providers Care Shower Attendant Name Role Phone Kacy Fonseca MD Primary Care Provider [phone] Surgical History Surgery Date Site/Laterality Comments CORONARY ARTERY BYPASS GRAFT 10/1997 PROCEDURE: HISTORICAL CABG; COMMENT: x 3, Left radial to RCA, Right radial to LCX, BRITT to LAD TOTAL KNEE ARTHROPLASTY 03/28/2018 Right PROCEDURE: HISTORICAL TOTAL KNEE REPLACE; COMMENT: Dr Gardner OTHER SURGICAL HISTORY 08/14/2018 Left PROCEDURE: HISTORY OTHER; COMMENT: Femoral Endarterectomy, Dr Mary Lou Mckeon [facility] OTHER SURGICAL HISTORY 10/05/2018 PROCEDURE: ME REVJ TOTAL KNEE ARTHRP W/WO ALGRFT 1 [...] murmu r PVD (peripheral vascular dis ease) ([facility] V24) 05/02/2014 DX:PVD (peripheral vascular disease) ([facility]) CAD (coronary artery disease) 01/13/2012 DX :CAD [...] Vaccines (1 of 2) 02/28/1998 RSV Immunization Adult Patie nts (1 - 1-dose 75+ series) 02/28/2023 Cholesterol Screening (Lipid Panel) 11/22/2023 Depression Screening 11/22/2023 Falls Risk Assessment 11/22/2023 Hepatitis C Screening 11/22/2023 Hypertension/CHF/CAD Annual BMP Blood Test 11/22/2023 Social Influencers of Health Screening 11/22/2023 COVID-19 Vaccine ( - 2023-2 5 season) 2024 Influenza Vaccine (Season Ended) 2025 HIB Vaccines Aged Out No longer eligi [...] age to complete this topic Meningococcal B Vaccine Aged Out No l onger eligible based on patient's age to complete this topic RSV Immunization Patients Un rupa 20 months Aged Out No longer eligible b ased on patient's age to complete this topic Varicella Vaccines Aged Out No longer eligible based on patient's age to complete this topic Care Teams Shower Attendant Relationship Specialty Start Date End Date Kacy Fonseca MD [address] [place] [address] [address] [facility] [place] [address] PCP - General 08/07/09
[2025-03-08 08:33] VITALS: BP 136/76; PULSE 64; RESP 16; TEMP 36.2; O2SAT 97; BMI 31.5
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
== END 2025-03-08 08:58 | disposition home or self-care (01) ==
PROVIDERS: PCP Internal Medicine; Visit Provider Nurse Practitioner Family
DX: S46.011A Strain of muscle(s) and tendon(s) of the rotator cuff of right shoulder, initial encounter (principal); R06.02 Shortness of breath; Z04.3 Encounter for examination and observation following other accident; V89.2XXA Person injured in unspecified motor-vehicle accident, traffic, initial encounter

== ENCOUNTER → 2025-03-08 08:06 | Outpatient (BNVA) | payer MEDICARE, SELFPAY | PROVIDERS: PCP Internal Medicine; Visit Provider Nurse Practitioner Family | DX: Z13.89 Encounter for screening for other disorder (principal) ==

== ENCOUNTER 2025-05-17 05:59 | Outpatient (REF) | payer MEDICARE, SELFPAY ==
[2025-05-17 06:10] LABS: MANUAL DIFF FLAG NO
[2025-05-17 07:09] LABS: Hematocrit 42.8 % (42.0-52.0); Hemoglobin 14.8 g/dl (14.0-18.0); Imm Gran Abs Auto 0.02 X10*3/uL (0.00-0.03); Imm Gran Pct Auto 0.3 % (0.0-0.4); Lymphocytes Absolute Auto 3.5 X10*3/uL (1.2-4.9); Mean Corpuscular HGB Conc 34.6 g/dl (31.0-36.0); Mean Corpuscular Hemoglobin 33.9 pg (27.0-33.0); Mean Corpuscular Volume 98.2 fL (80.0-98.0); NRBC Abs Auto 0.000 X10*3/uL (0.0-0.012); NRBC Pct Auto 0.0 /100WBC (0.0-0.2); Platelet Count 133 X10*3/uL (160-400); Red Blood Count 4.36 X10*6/uL (4.60-5.80); White Blood Count 5.9 X10*3/uL (4.8-10.8)
[2025-05-17 07:16] LABS: Hemoglobin A1C 161.4459 umol/L; Total Hemoglobin (HGBA1C) 3874.8451 umol/L
[2025-05-17 07:42] LABS: Alanine Aminotransferase 41 U/L (0-40); Albumin Level 4.3 g/dL (3.5-5.0); Alkaline Phosphatase 82 U/L (39-117); Anion Gap 10 (12-20); Aspartate Amino Transferase 40 U/L (5-37); Blood Urea Nitrogen 14 mg/dL (9-16); Calcium 9.1 mg/dL (8.4-10.2); Carbon Dioxide 25 mmol/L (22-29); Chloride 110 mmol/L (96-108); Cholesterol 122 mg/dL (<200); Estimated Glomerular Filt Rate > 60; HDL Cholesterol 58 mg/dL (>40); Potassium 4.0 mmol/L (3.3-5.1); Sodium 141 mmol/L (135-145); Total Protein 7.0 g/dL (6.5-8.0); Triglycerides 76 mg/dL (<150)
[2025-05-17 07:59] LABS: Free T4 (Free Thyroxine) 0.87 ng/dL (0.71-1.85); Thyroid Stimulating Hormone 3.61 uIU/mL (0.32-4.0)
[2025-05-17 08:10] LABS: Folate 11.3 ng/mL (> or = 4.0); Vitamin B12 519 pg/mL (200-900)
== END 2025-05-17 06:00 | disposition home or self-care (01) ==
LOC: HO.LAB 05:59
PROVIDERS: PCP Internal Medicine; Visit Provider Internal Medicine
DX: I25.10 Atherosclerotic heart disease of native coronary artery without angina pectoris (principal); E78.00 Pure hypercholesterolemia, unspecified
CPT/HCPCS: 36415; 80053; 80061; 82607; 82746; 83036; 84439; 84443; 85025

== ENCOUNTER 2025-05-30 10:16 | Outpatient (AMB) | payer OTHER, MEDICARE, SELFPAY ==
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
[2025-05-30 10:30] VITALS: BP 116/58; PULSE 69; O2SAT 98; BMI 31.9
--- OUTSIDE RECORDS SUMMARY | 2025-05-30 10:46 | XMS_ITS | Clinical Summary ---
Author Organization [facility] ity Address [address] [place] [address] Care Team Providers Care Tv Production Assistant Name Role Phone Kacy Fonseca MD Primary Care Provider [phone] Surgical History Surgery Date Site/Laterality Comments CORONARY ARTERY BYPASS GRAFT 10/1997 PROCEDURE: HISTORICAL CABG; COMMENT: x 3, Left radial to RCA, Right radial to LCX, BRITT to LAD TOTAL KNEE ARTHROPLASTY 03/28/2018 Right PROCEDURE: HISTORICAL TOTAL KNEE REPLACE; COMMENT: Dr Gardner OTHER SURGICAL HISTORY 08/14/2018 Left PROCEDURE: HISTORY OTHER; COMMENT: Femoral Endarterectomy, Dr Mary Lou Mckeon [facility] OTHER SURGICAL HISTORY 10/05/2018 PROCEDURE: PA REVJ TOTAL KNEE ARTHRP W/WO ALGRFT 1 [...] murmu r PVD (peripheral vascular dis ease) ([facility]) 05/02/2014 DX:PVD (peripheral vascular disease) ([facility]) CAD (coronary artery disease) 01/13/2012 [...] series) 02/28/2023 Cholesterol Screening (Lipid Panel) 11/22/2023 Falls Risk Assessment 11/22/2023 Hepatitis C Screening 11/22/2023 Hypertension/CHF/CAD Annual BMP Blood Test 11/22/2023 Social Influencers of Health Screening 11/22/2023 COVID-19 Vaccine (1 - 2023-2 5 season) 2024 Depression Screening 10/24/2024 Influenza Vaccine (#1) 2025 HIB Vaccines Aged Out No longer [...] age to complete this topic Care Teams Tv Production Assistant Relationship Specialty Start Date End Date Kacy Fonseca MD [address] [place] [address] [address] [facility] [place] [address] PCP - General 08/07/09
--- OUTSIDE RECORDS SUMMARY | 2025-05-30 10:46 | XMS_ITS | Patient Health Record ---
Author Organization 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
--- OUTSIDE RECORDS SUMMARY | 2025-05-30 10:46 | XMS_ITS | Clinical Summary ---
Author Organization [facility] Address [address] [place] [id number] Phone Care Team Providers Care Proof Reader Name Role Phone Kacy Fonseca MD Primary Care Provider [phone] Allergies No known active allergies Medications metoprolol succinate (TOPROL-XL) 50 MG 24 hr tablet Take 50 mg by mouth daily. Active clopidogrel (PLAVIX) 75 mg tablet Take 75 mg by mouth daily. Active rosuvastatin (CRESTOR) 20 MG tablet Take 20 mg by mouth daily. Active cholecalciferol (VITAMIN D3) 3,000 unit tablet Take 1,000 Units by mouth daily. Active Active Problems No known active problems Social History Tobacco Use Types Packs/Day Years Used Date Smoking Tobacco: Former Smokeless Tobacco: Never Comments:quit 1979 Alcohol Use Standard Drinks/Week Comments Yes 7 (1 standard drink = 0.6 oz pur e alcohol) weekends Education Answer Date Recorded Are you interested in more education? Not on shaniqua e 02/19/2023 Are you concerned about learning? Not on file 02/19/2023 No 02/19/2023 No 02/19/2023 Digital Access Answer Date Recorded No 03/16/2023 No 03/16/2023 No 03/16/2023 Reliable internet access at home? Not on file 03/16/2023 Device with a working camera? Not on file Sex and Gender Information Value Date Recorded Sex Assigned at Not on file Legal Sex Male 4:44 PM EST Gender Identity Not on file Sexual Orientation Not on file Last Filed Vital Signs Vital Sign Reading Time Taken Comments Blood Pressure 125/79 11/10/2021 1:29 PM EST Pulse 61 11/10/2021 10:45 AM EST Temperature 36.2 C (97.2 F) 11/10/2021 1:29 PM EST Respiratory Rate 16 11/10/2021 1:00 PM EST Oxygen Saturation 97% 11/10/2021 1:29 PM EST Inhaled Oxygen Concentration - - Weight 106.1 kg (234 lb) 12/21/2021 2:28 PM EST Height 185.4 cm (6' 1 ) 12/21/2021 2:28 PM EST Body Mass Index 30.87 12/21/2021 2:28 PM EST Plan of Treatment Health Maintenance Due Date Last Done Comments Adult Td,Tdap Booster 1948 LIPID PANEL 1948 DEPRESSION SCREENING 1960 SMOKING Hx and SMOKELESS TOB ACCO SCREENING 02/28/1961 HEPATITIS C SCREENING 02/28/1966 PNEUMOCOCCAL VACCINES (50+ y ears) (1 of 1 - PCV) 02/28/1998 ZOSTER VACCINES (1 of 2) 02/28/1998 RSV VACCINE (1 - 1-dose 75+ series) 02/28/2023 COVID-19 VACCINE (1 - 2023-2 5 season) 2024 HEPATITIS A VACCINES Aged Out No long er eligible based on patient's age to complete this topic HIB VACCINES Aged Out No longer eligi ble based on patient's age to complete this topic MENINGOCOCCAL VACCINES (ACWY) Aged Out No longer eligible based on patient's age to complete this topic MENINGOCOCCAL VACCINES (B) Aged Out N o longer eligible based on patient's age to complete this topic Medical Devices Implanted Type Area Duty Engineer Device Identifier Shelf Expiration Date Model / Serial / Lot Prosthetic Joint Prosthetic Joint Right: Knee Prosthetic Joint Prosthetic Joint Right: Hip Insurance [employer] [place] [id number] MEDICARE PART A & B [employer] [place] [id number] MEDICARE PART A & [place] [id number] MEDICARE PART A & B [employer] [id number] MEDICARE PART A & B [employer] [place] [id number] MEDICARE PART A & B [place] [id number] MEDICARE PART A & B [employer] MEDICARE PART A & B [employer] MEDICARE PART A & B [employer] MEDICARE PART A & B Advance Directives For more information, please contact: [phone] (9AM - 5PM [facility], Tuesday-Tuesday) * Full Code (Latest Code Status on File) Date Activated Date Inactivated Comments 11/10/2021 7:23 AM Question Answer Comments Code Status Confirmed With: Other (specify below ) Code Discussion Comments: Transcribed from order Care Teams Proof Reader Relationship Specialty Start Date End Date Kacy Fonseca MD [address] [place] [address] [address] [place] [phone] PCP - General Internal Medicine 10/28/21 Additional Source Comments The information contained in this document represents components of the legal health record. It is not the complete legal health record.[facility]
--- OUTSIDE RECORDS SUMMARY | 2025-05-30 10:46 | XMS_ITS | Encounter Summary ---
Author Organization [facility] Address [address] [place] [address] Care Team Providers Care Rn Chemical Dependency Name Role Phone Kacy Fonseca MD Primary Care Provider [phone] Lupe Campbell MD Unavailable Encounter Details Date Type Department Care Team (Late st Contact Info) Description 01/23/2019 Scanned Document [facility] [place] [address] Rena Mcconnell MD [address] [place] [address] Social History Tobacco Use Types Packs/Day Years [...] on filedocumented in this encounter Care Teams Rn Chemical Dependency Relationship Specialty Start Date End Date Kacy Fonseca MD [address] [place] [address] PCP - General Internal Medicine 12/20/18 Lupe Campbell MD [address] [place] [address] [place] [address] Cardiovascular Disease 12/20/18 documented as of this encounter
== END 2025-05-30 10:57 | disposition home or self-care (01) ==
LOC: HO.HMCH 10:17
PROVIDERS: PCP Internal Medicine
DX: I10 Essential (primary) hypertension (principal); I35.0 Nonrheumatic aortic (valve) stenosis; I25.10 Atherosclerotic heart disease of native coronary artery without angina pectoris; E78.00 Pure hypercholesterolemia, unspecified; R73.01 Impaired fasting glucose; E66.9 Obesity, unspecified; I73.9 Peripheral vascular disease, unspecified; R79.89 Other specified abnormal findings of blood chemistry; G47.00 Insomnia, unspecified

== ENCOUNTER 2025-09-17 10:36 | Outpatient (AMB) | payer MEDICARE, SELFPAY ==
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
[2025-09-17 10:47] VITALS: BP 122/62; PULSE 63; TEMP 36.1; O2SAT 96; BMI 32.6
== END 2025-09-17 11:44 | disposition home or self-care (01) ==
LOC: HO.HMCH 10:37
PROVIDERS: PCP Internal Medicine; Visit Provider Internal Medicine
DX: Z00.00 Encounter for general adult medical examination without abnormal findings (principal); E66.9 Obesity, unspecified; Z68.32 Body mass index [BMI] 32.0-32.9, adult; R73.01 Impaired fasting glucose; I25.10 Atherosclerotic heart disease of native coronary artery without angina pectoris; I10 Essential (primary) hypertension; I35.0 Nonrheumatic aortic (valve) stenosis; I73.9 Peripheral vascular disease, unspecified; E78.00 Pure hypercholesterolemia, unspecified; D12.6 Benign neoplasm of colon, unspecified; N40.1 Benign prostatic hyperplasia with lower urinary tract symptoms; R35.0 Frequency of micturition; G47.00 Insomnia, unspecified; R79.89 Other specified abnormal findings of blood chemistry

== ENCOUNTER → 2025-09-17 10:36 | Outpatient (BNVA) | payer MEDICARE, SELFPAY | PROVIDERS: PCP Internal Medicine; Visit Provider Internal Medicine | DX: Z00.00 Encounter for general adult medical examination without abnormal findings (principal); E66.9 Obesity, unspecified; I25.10 Atherosclerotic heart disease of native coronary artery without angina pectoris; I10 Essential (primary) hypertension; E78.00 Pure hypercholesterolemia, unspecified; I73.9 Peripheral vascular disease, unspecified; R05.9 Cough, unspecified; R73.01 Impaired fasting glucose; I35.0 Nonrheumatic aortic (valve) stenosis; D12.6 Benign neoplasm of colon, unspecified; N40.1 Benign prostatic hyperplasia with lower urinary tract symptoms; R35.0 Frequency of micturition; G47.00 Insomnia, unspecified; R79.89 Other specified abnormal findings of blood chemistry; Z68.32 Body mass index [BMI] 32.0-32.9, adult; Z87.891 Personal history of nicotine dependence | CPT/HCPCS: 96127; 99397 ==